=== PATIENT | male | born 1980 | race American Indian/Alaskan Native ===

== ENCOUNTER 2020-04-24 12:11 | Emergency (ER) | payer SELFPAY ==
--- NOTE | 2020-04-24 12:30 | Event Note ---
ED Screening Note Date of service: 04/24/20 Time: 12:30 ED Screening Note: Patient complains of bilateral pain and tingling in his legs States he believes he has diabetes History of pancreatitis This initial assessment/diagnostic orders/clinical plan/treatment(s) is/are subject to change based on patients health status, clinical progression and re- assessment by fellow clinical providers in the ED. Further treatment and workup at subsequent clinical providers discretion. Patient/guardian urged not to elope from the ED as their condition may be serious if not clinically assessed and managed. Initial orders include: Lab
[2020-04-24 13:42] LABS: Basophils # (Auto) 0.1 K/mm3 (0.0-0.1); Basophils % (Auto) 1.2 % (0.0-1.8); Eosinophils # (Auto) 0.1 K/mm3 (0.0-0.4); Hematocrit 36.6 % (35.5-45.6); Hemoglobin 12.6 gm/dl (11.8-15.2); Lymphocytes # (Auto) 1.6 K/mm3 (1.2-5.4); Lymphocytes % (Auto) 25.6 % (13.4-35.0); Mean Corpuscular HGB Conc 34 % (32-34); Mean Corpuscular Volume 99 fl (84-94); Monocytes # (Auto) 0.6 K/mm3 (0.0-0.8); Monocytes % (Auto) 9.3 % (0.0-7.3); Platelet Count 236 K/mm3 (140-440); Red Blood Count 3.69 M/mm3 (3.65-5.03); Red Cell Distribution Width 17.2 % (13.2-15.2)
[2020-04-24 14:04] LABS: Alanine Aminotransferase 48 units/L (7-56); Albumin 3.6 g/dL (3.9-5); Blood Urea Nitrogen 8 mg/dL (9-20); Calcium 7.8 mg/dL (8.4-10.2); Hemolysis Index 11
[2020-04-24 14:05] LABS: BUN/Creatinine Ratio 16
--- NOTE | 2020-04-24 17:42 | Emergency Department Report ---
ED General Adult HPI - General Chief complaint: Weakness Stated complaint: ZEESHAN LEG PAIN/NUMB Time Seen by Provider: 04/24/20 12:29 Source: patient Mode of arrival: Ambulatory Limitations: No Limitations - History of Present Illness Initial comments: 40-year-old -[place] male with a past medical history of alcoholism which is still current having had his last drink just this morning states that he has been drinking excessively over the past few days and is beginning to develop some epigastric pain associated with nausea suggestive of his previous pancreatitis attack which she thinks is the case right now. Ports no hemoptysis no hematemesis no hematochezia. Reports no fever, chills, sweats no chest pain no palpitations. No diarrhea no known foreign travel no known contacts with the coronavirus. States that he feels fatigued. He also has a concern for the this to to 3-month history of numbness and tingling to his lower extremities which is began to become more painful and having some vague cramps which he primarily wants pain medication to manage at this time. He states that the he has relocated him from from [place] but has not yet been seen and evaluated by primary care for this issue he has no known history of any diabetes or any demyelinating neuropathic issues to his knowledge. Reports no lower extremity swelling no color change no rash Radiation: non-radiation Consistency: constant Improves with: none Worsens with: none Associated Symptoms: nausea/vomiting. denies: chest pain, cough, malaise, shortness of breath, syncope - Related Data Previous Rx's Medication Instructions Recorded Last Taken Type Ketorolac [Toradol] 10 mg PO Q6H PRN #10 tablet 04/24/20 Unknown Rx Ondansetron [Zofran ODT TAB] 8 mg PO Q12HR #14 tab.rapdis 04/24/20 Unknown Rx Allergies Allergy/AdvReac Type Severity Reaction Status Date / Time No Known Allergies Allergy Unverified 04/24/20 12:30 ED Review of Systems ROS: Stated complaint: ZEESHAN LEG PAIN/NUMB Other details as noted in HPI Comment: All other systems reviewed and negative ED Past Medical Hx - Social History Smoking Status: Unknown if ever smoked Substance Use Type: None - Medications Home Medications: Home Medications Medication Instructions Recorded Confirmed Last Taken Type Ketorolac [Toradol] 10 mg PO Q6H PRN #10 tablet 04/24/20 Unknown Rx Ondansetron [Zofran ODT TAB] 8 mg PO Q12HR #14 tab.rapdis 04/24/20 Unknown Rx ED Physical Exam - General Limitations: No Limitations General appearance: alert, in no apparent distress - Head Head exam: Present: atraumatic, normocephalic - Eye Eye exam: Present: normal appearance, PERRL, EOMI Pupils: Present: normal accommodation - ENT ENT exam: Present: normal exam, normal orophraynx, mucous membranes moist, TM's normal bilaterally - Neck Neck exam: Present: normal inspection, full ROM - Respiratory Respiratory exam: Present: normal lung sounds bilaterally. Absent: respiratory distress, wheezes, rales, chest wall tenderness, accessory muscle use, decreased breath sounds - Cardiovascular Cardiovascular Exam: Present: regular rate, normal rhythm. Absent: systolic murmur, diastolic murmur, rubs, gallop - GI/Abdominal GI/Abdominal exam: Present: soft, normal bowel sounds - Rectal Rectal exam: Present: deferred - Extremities Exam Extremities exam: Present: normal inspection, normal capillary refill, other (Pulses are 2+. Sensation is intact no swelling no Homans' sign no cords no popliteal mass) - Back Exam Back exam: Present: normal inspection. Absent: CVA tenderness (R), CVA tenderness (L) - Neurological Exam Neurological exam: Present: alert, oriented X3, CN II-XII intact, normal gait, reflexes normal. Absent: motor sensory deficit - Psychiatric Psychiatric exam: Present: normal affect, normal mood - Skin Skin exam: Present: warm, dry, intact, normal color. Absent: rash ED Course Vital Signs 04/24/20 12:30 Temperature 97.7 F Pulse Rate 104 H Respiratory 16 Rate Blood Pressure 165/111 [Right] O2 Sat by Pulse 95 Oximetry - Reevaluation(s) Reevaluation #1: 04/24/20 18:55 Patient is awake alert and oriented he is ambulatory no acute distress - Consultations Consultation #1: 04/24/20 18:55 Case discussed with my attending ED Medical Decision Making - Lab Data Result diagrams: 04/24/20 12:56 04/24/20 12:56 Lab Results 04/24/20 04/24/20 04/24/20 Range/Units 12:56 12:56 12:56 WBC 6.3 (4.5-11.0) K/mm3 RBC 3.69 (3.65-5.03) M/mm3 Hgb 12.6 (11.8-15.2) gm/dl Hct 36.6 (35.5-45.6) % MCV 99 H (84-94) fl MCH 34 H (28-32) pg MCHC 34 (32-34) % RDW 17.2 H (13.2-15.2) % Plt Count 236 (140-440) K/mm3 Lymph % (Auto) 25.6 (13.4-35.0) % [place]ferro % (Auto) 9.3 H (0.0-7.3) % Eos % (Auto) 1.0 (0.0-4.3) % Baso % (Auto) 1.2 (0.0-1.8) % Lymph # (Auto) 1.6 (1.2-5.4) K/mm3 [place]ferro # (Auto) 0.6 (0.0-0.8) K/mm3 Eos # (Auto) 0.1 (0.0-0.4) K/mm3 Baso # (Auto) 0.1 (0.0-0.1) K/mm3 Seg Neutrophils % 62.9 (40.0-70.0) % Seg Neutrophils # 4.0 (1.8-7.7) K/mm3 Sodium 146 H (137-145) mmol/L Potassium 2.7 L* (3.6-5.0) mmol/L Chloride 99.3 (98-107) mmol/L Carbon Dioxide 29 (22-30) mmol/L Anion Gap 20 mmol/L BUN 8 L (9-20) mg/dL Creatinine 0.5 L (0.8-1.3) mg/dL Estimated GFR > 60 ml/min BUN/Creatinine Ratio 16 % Glucose 105 H (75-100) mg/dL Calcium 7.8 L (8.4-10.2) mg/dL Total Bilirubin 0.70 (0.1-1.2) mg/dL AST 233 H (5-40) units/L ALT 48 (7-56) units/L Alkaline Phosphatase 235 H (35-129) units/L Total Protein 7.4 (6.3-8.2) g/dL Albumin 3.6 L (3.9-5) g/dL Albumin/Globulin Ratio 0.9 % Lipase 76 H (13-60) units/L - Medical Decision Making 40-year-old -[place] male alcoholic who continues to suffer from alcoholism having his last drink earlier today presents emerged department with suspicion of a pancreatitis evolution. Also has been having some progressively worsening numbness and tingling to his lower extremities there is beginning to become more pronounced over the last year. Reports no diarrhea or vomiting.. I discussed with him in great detail and counseled him on the need for alcohol cessation and appropriate nutrition. Although his primary focus was receiving pain medication today he did express an understanding Plan regards to his hypokalemia most likely secondary to his chronic alcoholism and no evidence of any ketoacidosis today with a normal anion gap but is more likely due to hypomagnesia of a chronic etiology advised him on taking multivitamins daily and increasing his magnesium intake as well. 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 Critical care attestation.: If time is entered above; I have spent that time in minutes in the direct care of this critically ill patient, excluding procedure time. ED Disposition Clinical Impression: Abdominal pain, Hypokalemia, Alcoholic peripheral neuropathy Disposition: DC-01 TO HOME OR SELFCARE Is pt being admited?: No Does the pt Need Aspirin: No Condition: Stable Instructions: Potassium Content of Foods, Peripheral Neuropathy, Hypokalemia, Alcohol Use Disorder, Alcohol Abuse and Nutrition, Binge-Drinking Information, Adult, Alcohol Withdrawal Syndrome, Alcohol Abuse and Dependence Information, Adult Prescriptions: Ketorolac [Toradol] 10 mg PO Q6H PRN #10 tablet PRN Reason: Pain Ondansetron [Zofran ODT TAB] 8 mg PO Q12HR #14 tab.rapdis Referrals: PRIMARY CARE, [Primary Care Provider] - 3-5 Days CHANTAL REYNA MD [Staff Physician] - 3-5 Days
[2020-04-24] MEDS ORDERED: ACETAMINOPHEN 325 MG TAB ONE (19:35)
[2020-04-24] MEDS ORDERED: IBUPROFEN 600 MG TAB PO ONE ×2 (19:35→19:37)
[2020-04-24] MEDS ORDERED: ACETAMINOPHEN 325 MG TAB PO ONE (19:37)
[2020-04-24 20:41] VITALS: BP 161/76
== END 2020-04-24 19:40 | disposition home or self-care (01) ==
LOC: ED 12:11
DX: E87.6 Hypokalemia (principal); G62.1 Alcoholic polyneuropathy
CPT/HCPCS: 36415; 80053; 83690; 85025

== ENCOUNTER 2020-05-03 15:01 | Inpatient (IN) | payer OTHER ==
[2020-05-03] MEDS ORDERED: ASPIRIN 325 MG TAB PO ONE (15:21)
[2020-05-03 15:44] LABS: Hematocrit 21.3 % (35.5-45.6); Hemoglobin 7.3 gm/dl (11.8-15.2); Mean Corpuscular HGB Conc 34 % (32-34); Mean Corpuscular Volume 99 fl (84-94); Platelet Count 110 K/mm3 (140-440); Red Blood Count 2.15 M/mm3 (3.65-5.03); Red Cell Distribution Width 16.2 % (13.2-15.2)
[2020-05-03 15:59] LABS: Blood Urea Nitrogen 9 mg/dL (9-20); Calcium 7.8 mg/dL (8.4-10.2); Hemolysis Index 0
--- NOTE | 2020-05-03 16:12 | XRay Report ---
CHEST 1 VIEW INDICATION / CLINICAL INFORMATION: Chest Pain. COMPARISON: None available. FINDINGS: SUPPORT DEVICES: None. HEART / MEDIASTINUM: No significant abnormality. LUNGS / PLEURA: No significant pulmonary or pleural abnormality. No pneumothorax. ADDITIONAL FINDINGS: No significant additional findings. IMPRESSION: 1. No acute findings. Signer Name: Weston Jung MD Signed: 05/03/2020 4:08 PM Workstation Name: [id number]
[2020-05-03 16:14] LABS: BUN/Creatinine Ratio 13
[2020-05-03 16:40] LABS: Basophils % (Manual) 0 % (0.0-1.8); Eosinophils % (Manual) 0 % (0.0-4.3); RBC Morphology Normal; Total Cells Counted 100
[2020-05-03] MEDS ORDERED: HYDROmorphone 1 MG/1 ML INJ IV ONE (20:46)
[2020-05-03] MEDS ORDERED: LORazepam 2 MG/ML VIAL IV ONE (20:46)
[2020-05-03] MEDS ORDERED: LORazepam 2 MG/ML VIAL IV PRN ×2 (20:48)
[2020-05-03] MEDS ORDERED: MAGNESIUM SULFATE 2 GM/50 ML BAG IV ONE (20:48)
[2020-05-03] MEDS ORDERED: SODIUM CHLORIDE 0.9% 1000 ML 1,000 ML IV ONE (20:49)
--- NOTE | 2020-05-03 20:50 | Emergency Department Report ---
ED Chest Pain HPI - General Chief Complaint: Dyspnea/Respdistress Stated Complaint: DIFFICULTY BREATHING PUI?: No Time Seen by Provider: 05/03/20 20:23 Source: EMS Mode of arrival: Wheelchair Limitations: No Limitations - History of Present Illness Initial Comments: Patient is a 40-year-old male who presents for multiple complaints. Patient's complaints shortness of breath, chest pain, epigastric pain, generalized abdominal pain. Patient states he smokes a half a pack per day. Patient states he drinks alcohol regularly and his last drink was last night. Patient denies nausea and vomiting. Patient states all of his pain is a 10 out of 10. Patient states his pain is better with rest. Patient states his pain is worse with exertion and movement and palpation. Patient states his abdominal area feels bloated. Patient states he has a history of pancreatitis. Patient denies recent travel. Patient denies recent international travel. Patient denies exposure to the novel coronavirus. Patient denies sick contacts. Patient denies fever and chills. Patient denies cough. Patient denies diarrhea. Patient denies coming in contact with anybody with symptoms of the novel coronavirus. MD Complaint: chest pain -: Sudden Onset: during rest Pain Location: substernal, left chest, right chest, epigastric Pain Radiation: none Severity: severe Severity scale (0 -10): 10 Quality: sharp Consistency: constant Improves With: rest Worsens With: exertion, palpation, movement re: dyspnea. denies: nausea, vomting, diaphoresis, sense of impending doom Other Symptoms: burping. denies: cough, fever, syncope, rash, acid taste in mouth, leg swelling, palpitations Treatments Prior to Arrival: none Aspirin use within the Past 7 Days: (0) No - Related Data On Oral Contraceptives: No Previous Rx's Medication Instructions Recorded Last Taken Type Ketorolac [Toradol] 10 mg PO Q6H PRN #10 tablet 04/24/20 Unknown Rx Ondansetron [Zofran ODT TAB] 8 mg PO Q12HR #14 tab.rapdis 04/24/20 Unknown Rx Allergies Allergy/AdvReac Type Severity Reaction Status Date / Time No Known Allergies Allergy Unverified 04/24/20 12:30 Heart Score - HEART Score History: Slightly suspicious EKG: Normal Age: < 45 Risk factors: 1-2 risk factors Troponin: < normal limit HEART Score: 1 ED Review of Systems ROS: Stated complaint: DIFFICULTY BREATHING Other details as noted in HPI Constitutional: denies: chills, fever Eyes: denies: eye pain, eye discharge, vision change ENT: denies: ear pain, throat pain Respiratory: shortness of breath. denies: cough, wheezing Cardiovascular: chest pain. denies: palpitations Endocrine: no symptoms reported Gastrointestinal: abdominal pain. denies: nausea, diarrhea Genitourinary: denies: urgency, dysuria Musculoskeletal: denies: back pain, joint swelling, arthralgia Skin: denies: rash, lesions Neurological: denies: headache, weakness, paresthesias Psychiatric: denies: anxiety, depression Hematological/Lymphatic: denies: easy bleeding, easy bruising ED Past Medical Hx - Past Medical History Previous Medical History?: Yes Hx Psychiatric Treatment: Yes (alcohol abuse) - Surgical History Past Surgical History?: No - Family History Family history: no significant - Social History Smoking Status: Current Every Day Smoker Substance Use Type: Alcohol - Medications Home Medications: Home Medications Medication Instructions Recorded Confirmed Last Taken Type Ketorolac [Toradol] 10 mg PO Q6H PRN #10 tablet 04/24/20 Unknown Rx Ondansetron [Zofran ODT TAB] 8 mg PO Q12HR #14 tab.rapdis 04/24/20 Unknown Rx ED Physical Exam - General Limitations: No Limitations General appearance: alert, in no apparent distress - Head Head exam: Present: atraumatic, normocephalic - Eye Eye exam: Present: normal appearance - ENT ENT exam: Present: mucous membranes moist - Neck Neck exam: Present: normal inspection - Respiratory Respiratory exam: Present: normal lung sounds bilaterally, chest wall tenderness. Absent: respiratory distress - Cardiovascular Cardiovascular Exam: Present: regular rate, normal rhythm. Absent: systolic murmur, diastolic murmur, rubs, gallop - GI/Abdominal GI/Abdominal exam: Present: soft, distended, tenderness, normal bowel sounds. Absent: guarding, rebound - Rectal Rectal exam: Present: normal inspection, normal rectal tone, heme (+) stool, black stool - Extremities Exam Extremities exam: Present: normal inspection - Back Exam Back exam: Present: normal inspection - Neurological Exam Neurological exam: Present: alert, oriented X3 - Psychiatric Psychiatric exam: Present: normal affect, normal mood - Skin Skin exam: Present: warm, dry, intact, normal color. Absent: rash ED Course Vital Signs 05/03/20 15:16 Temperature 98.3 F Pulse Rate 90 Respiratory 18 Rate Blood Pressure 101/62 O2 Sat by Pulse 96 Oximetry - Reevaluation(s) Reevaluation #1: Patient states his pain is better. Patient denies any tremors. 05/03/20 22:03 Reevaluation #2: Patient states he is feeling better. Patient is receiving fluids and potassium replacement. Patient had a rectal exam done with nurse Zaman in the room. I discussed all results with patient. I discussed plan of care with patient. Patient agrees with plan of care and admission. Patient to be admitted to the hospitalist service. 05/03/20 23:53 - Consultations Consultation #1: Hospitalist consulted for admission. Hospitalist to admit patient. 05/03/20 23:54 JUDAH score - Judah Score Age > 65: (0) No Aspirin use within the Past 7 Days: (0) No 3 or more CAD Risk Factors: (0) No 2 or more Angina events in past 24 hrs: (0) No Known CAD with more than 50% Stenosis: (0) No Elevated Cardiac Markers: (0) No ST Deviation Greater than 0.5mm: (0) No JUDAH Score: 0 ED Medical Decision Making - Lab Data Result diagrams: 05/03/20 15:28 05/03/20 15:28 - EKG Data -: EKG Interpreted by Me EKG shows normal: sinus rhythm, axis, intervals, QRS complexes, ST-T waves Rate: tachycardia - Radiology Data Radiology results: report reviewed, image reviewed interpreted by me: Chest x-ray: No pneumonia, no pneumothorax, no foreign body, no osseous findings, no acute findings CHEST 1 VIEW INDICATION / CLINICAL INFORMATION: Chest Pain. COMPARISON: None available. FINDINGS: SUPPORT DEVICES: None. HEART / MEDIASTINUM: No significant abnormality. LUNGS / PLEURA: No significant pulmonary or pleural abnormality. No pneumothorax. ADDITIONAL FINDINGS: No significant additional findings. IMPRESSION: 1. No acute findings. CT ABDOMEN AND PELVIS WITH IV CONTRAST INDICATION: Patient complains of "Generalized" abdominal pain.. COMPARISON: None available. TECHNIQUE: All CT scans at this facility use dose modulation, automated exposure control, iterative reconstruction or weight based dosing, when appropriate, to reduce radiation dose to as low as reasonably achievable. FINDINGS: Lung Bases: No significant abnormality. Skeletal System: No acute abnormality. ABDOMEN: Liver: Hepatomegaly and diffuse advanced steatosis. Gallbladder: No significant abnormality. Bile Ducts: No significant abnormality. Pancreas: There is questionable subtle peripancreatic fluid. No pancreatic duct dilatation or circumscribed peripancreatic collections. Spleen: Within the medial superior spleen, there is a 2.8 cm ill-defined hypodense lesion which appears isodense to adjacent splenic parenchyma on delayed phase imaging. This is most likely a vascular lesion such as incidental hemangioma. The spleen is otherwise unremarkable. Adrenals: No significant abnormality. Right Kidney: No significant abnormality. Left Kidney: No significant abnormality. Upper GI tract: No significant abnormality. Lymph Nodes: No significant adenopathy. Aorta: Mild atherosclerotic calcification. Additional Findings: No significant abnormality. PELVIS: Colon: No acute abnormality. Urinary Bladder and Distal Ureters: No significant abnormality. Appendix: Absent. Lymph Nodes: No significant adenopathy. Additional Findings: None. IMPRESSION: 1. There is subtle peripancreatic stranding adjacent to the body and tail which could be seen in the setting of very mild pancreatitis, correlate with laboratory values. 2. 2.8 cm splenic lesion, as above, has CT features suggestive of vascular lesion such as hemangioma. 3. Additional, incidental findings as above. - Medical Decision Making Patient is a 40-year-old male who presents emergency room with complaints of chest pain, shortness of breath, abdominal pain. Patient has a long alcohol use history. Patient is high risk for pancreatitis. Patient has CT scan done. Patient's CT shows acute pancreatitis. After his evaluation, the patient was given Ativan and Dilaudid. Patient was given Dilaudid for abdominal pain which patient responded well to therapy. Patient was given Ativan to prevent tremors and withdrawal. Patient denies any tremulous activity. Patient's heart rate responded well. Patient given a banana bag and fluids. Patient had labs done which were consistent with hypokalemia, hypomagnesemia, elevated lipase and anemia. Patient had a rectal exam which was positive for occult blood. GI was consulted. Patient given Protonix IV. Patient given potassium and magnesium replacement. Patient admitted to the hospital service for further evaluation and treatment. - Differential Diagnosis Abdominal pain, chest pain, shortness of breath, gastritis, pancreatitis, Critical Care Time: Yes Critical care time in (mins) excluding proc time.: 35 Critical care attestation.: If time is entered above; I have spent that time in minutes in the direct care of this critically ill patient, excluding procedure time. Critical Care Time: 35 minutes ED Disposition Clinical Impression: Hypokalemia, SOB (shortness of breath), Hypomagnesemia Abdominal pain Qualifiers: Abdominal location: generalized Qualified Code(s): R10.84 - Generalized abdominal pain Pancreatitis Qualifiers: Chronicity: acute Pancreatitis type: alcohol induced Acute pancreatitis complication: unspecified Qualified Code(s): K85.20 - Alcohol induced acute pancreatitis without necrosis or infection Anemia Qualifiers: Anemia type: unspecified type Qualified Code(s): D64.9 - Anemia, unspecified Chest pain Qualifiers: Chest pain type: unspecified Qualified Code(s): R07.9 - Chest pain, unspecified GI bleed Qualifiers: GI bleed type/associated pathology: melena Qualified Code(s): K92.1 - Melena Gastritis Qualifiers: Gastritis type: alcoholic Chronicity: acute Gastritis bleeding: with bleeding Qualified Code(s): K29.21 - Alcoholic gastritis with bleeding Disposition: DC-09 OP ADMIT IP TO THIS HOSP Is pt being admited?: Yes Does the pt Need Aspirin: No Condition: Critical Instructions: Chest Pain (ED) Time of Disposition: 23:38
[2020-05-03] MEDS ORDERED: THIAMINE 100 MG, FOLIC ACID 1 MG, MULTIPLE VITAMIN INJ, ADULT 10 ML in SODIUM CHLORIDE ... IV ONE (21:00)
[2020-05-03] MEDS: POTASSIUM CHLORIDE 10 MEQ 10 MEQ/100 ML BAG IV SCH ×2 (21:13→23:50)
[2020-05-03] MEDS ORDERED: ASPIRIN 325 MG TAB ONE (21:21)
[2020-05-03 21:30] LABS: Albumin 3.1 g/dL (3.9-5); Bilirubin,Direct 0.7 mg/dL (0-0.2)
--- NOTE | 2020-05-03 23:35 | Cat Scan Report ---
CT ABDOMEN AND PELVIS WITH IV CONTRAST INDICATION: Patient complains of "Generalized" abdominal pain.. COMPARISON: None available. TECHNIQUE: All CT scans at this facility use dose modulation, automated exposure control, iterative reconstructi on or weight based dosing, when appropriate, to reduce radiation dose to as low as reasonably achieva ble. FINDINGS: Lung Bases: No significant abnormality. Skeletal System: No acute abnormality. ABDOMEN: Liver: Hepatomegaly and diffuse advanced steatosis. Gallbladder: No significant abnormality. Bile Ducts: No significant abnormality. Pancreas: There is questionable subtle peripancreatic fluid. No pancreatic duct dilatation or circums cribed peripancreatic collections. Spleen: Within the medial superior spleen, there is a 2.8 cm ill-defined hypodense lesion which appea rs isodense to adjacent splenic parenchyma on delayed phase imaging. This is most likely a vascular l esion such as incidental hemangioma. The spleen is otherwise unremarkable. Adrenals: No significant abnormality. Right Kidney: No significant abnormality. Left Kidney: No significant abnormality. Upper GI tract: No significant abnormality. Lymph Nodes: No significant adenopathy. Aorta: Mild atherosclerotic calcification. Additional Findings: No significant abnormality. PELVIS: Colon: No acute abnormality. Urinary Bladder and Distal Ureters: No significant abnormality. Appendix: Absent. Lymph Nodes: No significant adenopathy. Additional Findings: None. IMPRESSION: 1. There is subtle peripancreatic stranding adjacent to the body and tail which could be seen in the setting of very mild pancreatitis, correlate with laboratory values. 2. 2.8 cm splenic lesion, as above, has CT features suggestive of vascular lesion such as hemangioma . 3. Additional, incidental findings as above. Signer Name: Valeriy Ordaz MD Signed: 05/03/2020 11:31 PM Workstation Name: [id number]
[2020-05-03] MEDS ORDERED: PANTOPRAZOLE 40 MG INJ IV ONE (23:50)
[2020-05-04] MEDS ORDERED: ONDANSETRON 4 MG/2 ML INJ IV PRN (00:08)
[2020-05-04] MEDS ORDERED: MAGNESIUM HYDROXIDE (MOM) ORAL LIQD UDC PO PRN (00:08)
[2020-05-04] MEDS ORDERED: ACETAMINOPHEN 325 MG TAB PO PRN (00:08)
--- NOTE | 2020-05-04 00:17 | History and Physical Report ---
History of Present Illness Date of examination: 05/03/20 Date of admission: 05/03/20 23:38 Chief complaint: Abdominal Pain History of present illness: 40-year-old -[place] male with known history of alcohol abuse and pancreatitis presenting to the emergency room today complaining of abdominal pain, shortness of breath and chest discomfort. It was said to a status earlier today and abdominal pain is said to be more in the epigastric region and radiating towards the chest. Pain is said to be 10/10 in severity. Pain is worse on movement and improves while resting. Patient denies any fever or chills, no headache or dizziness, no sick contacts or recent travel, no contact with anyone with COVID-19, denies any diarrhea. He has had some nausea and vomiting and states his abdomen feels bloated. Patient drinks alcohol almost on a daily basis and last alcohol intake was last night. He also smokes about half a pack was cigarette on a daily basis. Work-up in the emergency room today reveals elevated lipase on the lab test, CT of the abdomen and pelvis reveals findings consistent with pancreatitis. Patient being admitted for acute pancreatitis. Past History Past Medical History: other (Pancreatitis) Past Surgical History: No surgical history Social history: smoking (Smokes about half a pack of cigarette daily), alcohol abuse (Drinks alcohol on a daily basis) Family history: no significant family history Medications and Allergies Allergies Allergy/AdvReac Type Severity Reaction Status Date / Time No Known Allergies Allergy Unverified 04/24/20 12:30 Home Medications Medication Instructions Recorded Confirmed Last Taken Type Ketorolac [Toradol] 10 mg PO Q6H PRN #10 tablet 04/24/20 Unknown Rx Ondansetron [Zofran ODT TAB] 8 mg PO Q12HR #14 tab.rapdis 04/24/20 Unknown Rx Active Meds: Active Medications Potassium Chloride (Kcl 10meq/100ml) 10 meq in 100 mls @ 100 mls/hr IV Q1H TWIN Stop: 05/04/20 00:59 Last Admin: 05/03/20 23:50 Dose: 100 mls/hr Documented by: Thiamine HCl 100 mg/ Folic Acid 1 mg/ Multivitamins/Minerals 10 ml/ Sodium Chloride 1,011.2 mls @ 250 mls/hr IV ONCE ONE Stop: 05/04/20 01:02 Last Admin: 05/03/20 22:00 Dose: 250 mls/hr Documented by: Lorazepam (Ativan) 2 mg IV Q1HR PRN PRN Reason: CIWA-Ar 8-15 Lorazepam (Ativan) 4 mg IV Q1HR PRN PRN Reason: CIWA-Ar 16-25 Lorazepam (Ativan) 4 mg IV Q15MIN PRN PRN Reason: CIWA-Ar >25 Review of Systems Constitutional: no fever, no chills Ears, nose, mouth and throat: no nasal congestion, no sore throat Cardiovascular: no chest pain, no palpitations Respiratory: no cough, no shortness of breath Gastrointestinal: abdominal pain, nausea, vomiting, no diarrhea, no hematemesis, no coffee ground emesis, no melena Genitourinary Male: no dysuria, no flank pain, no nocturia Musculoskeletal: no neck pain, no low back pain Integumentary: no rash, no pruritis Neurological: no headaches, no convulsions, no confusion Psychiatric: no anxiety, no depression Exam - Constitutional Vitals: Temp Pulse Resp BP Pulse Ox 98.3 F 90 18 101/62 96 05/03/20 15:16 05/03/20 15:16 05/03/20 15:16 05/03/20 15:16 05/03/20 15:16 General appearance: Present: no acute distress, well-nourished, other (Dry oral mucosa, appears lethargic) - EENT Eyes: Present: PERRL, EOM intact. Absent: scleral icterus ENT: hearing intact, clear oral mucosa, dentition normal - Neck Neck: Present: supple, normal ROM - Respiratory Respiratory effort: normal Respiratory: bilateral: CTA - Cardiovascular Rhythm: regular Heart Sounds: Present: S1 & S2. Absent: gallop, systolic murmur, diastolic murmur, rub - Extremities Extremities: no ischemia, pulses intact, pulses symmetrical, No edema, Full ROM Peripheral Pulses: within normal limits - Abdominal General gastrointestinal: Present: soft, tender, non-distended, normal bowel sounds. Absent: mass Localized gastrointestinal: tender: epigastric periumbilical, guarding: epigastric periumbilical - Integumentary Integumentary: Present: clear, warm, dry - Musculoskeletal Musculoskeletal: strength equal bilaterally - Psychiatric Psychiatric: appropriate mood/affect, intact judgment & insight, memory intact, cooperative - Neurologic Neurologic: CNII-XII intact, no focal deficits, moves all extremities HEART Score - HEART Score EKG: Normal Age: < 45 Risk factors: 1-2 risk factors Troponin: Troponin T < 0.010 ng/mL (0.00-0.029) 05/03/20 20:44 Troponin: < normal limit Results - Labs CBC & Chem 7: 05/03/20 15:28 05/03/20 15:28 Labs: Abnormal lab results 05/03/20 05/03/20 05/03/20 Range/Units 15:28 15:28 15:28 WBC 11.2 H (4.5-11.0) K/mm3 RBC 2.15 L (3.65-5.03) M/mm3 Hgb 7.3 L (11.8-15.2) gm/dl Hct 21.3 L (35.5-45.6) % MCV 99 H (84-94) fl MCH 34 H (28-32) pg RDW 16.2 H (13.2-15.2) % Plt Count 110 L (140-440) K/mm3 Seg Neuts % (Manual) 78.0 H (40.0-70.0) % Seg Neutrophils # Man 8.7 H (1.8-7.7) K/mm3 Sodium 131 L (137-145) mmol/L Potassium 2.0 L* (3.6-5.0) mmol/L Chloride 85.8 L (98-107) mmol/L Creatinine 0.7 L (0.8-1.3) mg/dL Glucose 112 H (75-100) mg/dL Calcium 7.8 L (8.4-10.2) mg/dL Magnesium 1.40 L (1.7-2.3) mg/dL Direct Bilirubin (0-0.2) mg/dL AST (5-40) units/L Alkaline Phosphatase (35-129) units/L Total Protein (6.3-8.2) g/dL Albumin (3.9-5) g/dL Lipase (13-60) units/L 05/03/20 Range/Units 20:51 WBC (4.5-11.0) K/mm3 RBC (3.65-5.03) M/mm3 Hgb (11.8-15.2) gm/dl Hct (35.5-45.6) % MCV (84-94) fl MCH (28-32) pg RDW (13.2-15.2) % Plt Count (140-440) K/mm3 Seg Neuts % (Manual) (40.0-70.0) % Seg Neutrophils # Man (1.8-7.7) K/mm3 Sodium (137-145) mmol/L Potassium (3.6-5.0) mmol/L Chloride (98-107) mmol/L Creatinine (0.8-1.3) mg/dL Glucose (75-100) mg/dL Calcium (8.4-10.2) mg/dL Magnesium (1.7-2.3) mg/dL Direct Bilirubin 0.7 H (0-0.2) mg/dL AST 191 H (5-40) units/L Alkaline Phosphatase 257 H (35-129) units/L Total Protein 5.9 L (6.3-8.2) g/dL Albumin 3.1 L (3.9-5) g/dL Lipase 225 H (13-60) units/L Assessment and Plan - Patient Problems (1) Pancreatitis Current Visit: Yes Status: Acute Qualifiers: Chronicity: acute Pancreatitis type: alcohol induced Acute pancreatitis complication: unspecified Qualified Code(s): K85.20 - Alcohol induced acute pancreatitis without necrosis or infection Plan to address problem: Patient made n.p.o. and placed on IV fluid and IV analgesic medication. (2) Abdominal pain Current Visit: Yes Status: Acute Qualifiers: Abdominal location: generalized Qualified Code(s): R10.84 - Generalized abdominal pain Plan to address problem: Probably secondary to the pancreatitis. We will continue on analgesic medication. (3) Anemia Current Visit: Yes Status: Acute Qualifiers: Anemia type: unspecified type Qualified Code(s): D64.9 - Anemia, unspec ified Plan to address problem: Possibly chronic. Will monitor CBC. Patient is Hemoccult positive and will place a consult to gastroenterology for evaluation. (4) Hypokalemia Current Visit: Yes Status: Acute Plan to address problem: Potassium will be repleted and will monitor chemistry. (5) Hypomagnesemia Current Visit: Yes Status: Acute Plan to address problem: Magnesium will be repleted and will monitor chemistry. (6) DVT prophylaxis Current Visit: Yes Status: Acute Plan to address problem: Patient placed on sequential compression device. (7) Full code status Current Visit: Yes Status: Acute
[2020-05-04] MEDS: POTASSIUM CHLORIDE 10 MEQ 10 MEQ/100 ML BAG IV SCH ×6 (00:59→21:25)
[2020-05-04] MEDS ORDERED: PANTOPRAZOLE 40 MG INJ IV ONE (01:00)
[2020-05-04] MEDS: HYDROmorphone 1 MG/1 ML INJ IV PRN ×3 (02:42→17:24)
[2020-05-04] MEDS ORDERED: POTASSIUM CHLORIDE 10 MEQ 10 MEQ/100 ML BAG IV SCH (03:15)
[2020-05-04] MEDS: SODIUM CHLORIDE 0.9% 1000 ML 1,000 ML IV SCH ×2 (03:38→09:56)
--- NOTE | 2020-05-04 08:00 | Progress Note ---
Assessment and Plan Assessment and plan: (1) Pancreatitis Current Visit: Yes Status: Acute Qualifiers: Chronicity: acute Pancreatitis type: alcohol induced Acute pancreatitis complication: unspecified Qualified Code(s): K85.20 - Alcohol induced acute pancreatitis without necrosis or infection Plan to address problem: Patient made n.p.o. and placed on IV fluid and IV analgesic medication. (2) Abdominal pain Current Visit: Yes Status: Acute Qualifiers: Abdominal location: generalized Qualified Code(s): R10.84 - Generalized abdominal pain Plan to address problem: Probably secondary to the pancreatitis. We will continue on analgesic medication. (3) Anemia Current Visit: Yes Status: Acute Qualifiers: Anemia type: unspecified type Qualified Code(s): D64.9 - Anemia, unspecified Plan to address problem: Possibly chronic. Will monitor CBC. Patient is Hemoccult positive and will place a consult to gastroenterology for evaluation. 05/04/20 -Patient's hemoglobin dropped down to 6.2 and I ordered 2 units of packed RBC for transfusion (4) Hypokalemia Current Visit: Yes Status: Acute Plan to address problem: Potassium will be repleted and will monitor chemistry. (5) Hypomagnesemia Current Visit: Yes Status: Acute Plan to address problem: Magnesium will be repleted and will monitor chemistry. (6) DVT prophylaxis Current Visit: Yes Status: Acute Plan to address problem: Patient placed on sequential compression device. (7) Full code status Current Visit: Yes Status: Acute History Interval history: Patient was seen and evaluated this morning Patient is complaining epigastric 8 out of 10 intensity Hospitalist Physical - Physical exam Narrative exam: Not in cardiopulmonary distress. The patient appeared well nourished and normally developed. Vital signs as documented. Head exam is unremarkable. No scleral icterus . Neck is without jugular venous distension, thyromegaly, or carotid bruits. Lungs are clear to auscultation. Cardiac exam reveals regular rate and Rhythm. Abdominal exam reveals epigastric tenderness. Extremities are nonedematous and both femoral and pedal pulses are normal. URGENT CARE NURSE PRACTITIONER: Alert and oriented 3. No focal weakness. - Constitutional Vitals: Temp Pulse Resp BP Pulse Ox 98.7 F 88 16 116/75 93 05/04/20 07:02 05/04/20 07:02 05/04/20 07:02 05/04/20 07:02 05/04/20 07:02 General appearance: Present: no acute distress, well-nourished, other (Dry oral mucosa, appears lethargic) HEART Score - HEART Score EKG: Normal Age: < 45 Risk factors: 1-2 risk factors Troponin: Troponin T < 0.010 ng/mL (0.00-0.029) 05/03/20 20:44 Troponin: < normal limit Results - Labs CBC & Chem 7: 05/04/20 09:20 05/04/20 09:20 Labs: Laboratory Last Values WBC 11.2 K/mm3 (4.5-11.0) H 05/03/20 15:28 RBC 2.15 M/mm3 (3.65-5.03) L 05/03/20 15:28 Hgb 7.3 gm/dl (11.8-15.2) L 05/03/20 15:28 Hct 21.3 % (35.5-45.6) L 05/03/20 15:28 MCV 99 fl (84-94) H 05/03/20 15:28 MCH 34 pg (28-32) H 05/03/20 15:28 MCHC 34 % (32-34) 05/03/20 15:28 RDW 16.2 % (13.2-15.2) H 05/03/20 15:28 Plt Count 110 K/mm3 (140-440) L 05/03/20 15:28 Add Manual Diff Complete 05/03/20 15:28 Total Counted 100 05/03/20 15:28 Seg Neuts % (Manual) 78.0 % (40.0-70.0) H 05/03/20 15:28 Band Neutrophils % 0 % 05/03/20 15:28 Lymphocytes % (Manual) 16.0 % (13.4-35.0) 05/03/20 15:28 Reactive Lymphs % (Man) 0 % 05/03/20 15:28 Monocytes % (Manual) 6.0 % (0.0-7.3) 05/03/20 15:28 Eosinophils % (Manual) 0 % (0.0-4.3) 05/03/20 15:28 Basophils % (Manual) 0 % (0.0-1.8) 05/03/20 15:28 Metamyelocytes % 0 % 05/03/20 15:28 Myelocytes % 0 % 05/03/20 15:28 Promyelocytes % 0 % 05/03/20 15:28 Blast Cells % 0 % 05/03/20 15:28 Nucleated RBC % Not Reportable 05/03/20 15:28 Seg Neutrophils # Man 8.7 K/mm3 (1.8-7.7) H 05/03/20 15:28 Band Neutrophils # 0.0 K/mm3 05/03/20 15:28 Lymphocytes # (Manual) 1.8 K/mm3 (1.2-5.4) 05/03/20 15:28 Abs React Lymphs (Man) 0.0 K/mm3 05/03/20 15:28 Monocytes # (Manual) 0.7 K/mm3 (0.0-0.8) 05/03/20 15:28 Eosinophils # (Manual) 0.0 K/mm3 (0.0-0.4) 05/03/20 15:28 Basophils # (Manual) 0.0 K/mm3 (0.0-0.1) 05/03/20 15:28 Metamyelocytes # 0.0 K/mm3 05/03/20 15:28 Myelocytes # 0.0 K/mm3 05/03/20 15:28 Promyelocytes # 0.0 K/mm3 05/03/20 15:28 Blast Cells # 0.0 K/mm3 05/03/20 15:28 WBC Morphology Not Reportable 05/03/20 15:28 Hypersegmented Neuts Not Reportable 05/03/20 15:28 Hyposegmented Neuts Not Reportable 05/03/20 15:28 Hypogranular Neuts Not Reportable 05/03/20 15:28 Smudge Cells Not Reportable 05/03/20 15:28 Toxic Granulation Not Reportable 05/03/20 15:28 Toxic Vacuolation Not Reportable 05/03/20 15:28 Dohle Bodies Not Reportable 05/03/20 15:28 Pelger-Huet Anomaly Not Reportable 05/03/20 15:28 Farrah Rods Not Reportable 05/03/20 15:28 Platelet Estimate Not Reportable 05/03/20 15:28 Clumped Platelets Not Reportable 05/03/20 15:28 Plt Clumps, EDTA Not Reportable 05/03/20 15:28 Large Platelets Not Reportable 05/03/20 15:28 Giant Platelets Not Reportable 05/03/20 15:28 Platelet Satelliting Not Reportable 05/03/20 15:28 Plt Morphology Comment Not Reportable 05/03/20 15:28 RBC Morphology Normal 05/03/20 15:28 Dimorphic RBCs Not Reportable 05/03/20 15:28 Polychromasia Not Reportable 05/03/20 15:28 Hypochromasia Not Reportable 05/03/20 15:28 Poikilocytosis Not Reportable 05/03/20 15:28 Anisocytosis Not Reportable 05/03/20 15:28 Microcytosis Not Reportable 05/03/20 15:28 Macrocytosis Not Reportable 05/03/20 15:28 Spherocytes Not Reportable 05/03/20 15:28 Pappenheimer Bodies Not Reportable 05/03/20 15:28 Sickle Cells Not Reportable 05/03/20 15:28 Target Cells Not Reportable 05/03/20 15:28 Tear Drop Cells Not Reportable 05/03/20 15:28 Ovalocytes Not Reportable 05/03/20 15:28 Helmet Cells Not Reportable 05/03/20 15:28 [place] Bodies Not Reportable 05/03/20 15:28 [place] Rings Not Reportable 05/03/20 15:28 [place] Cells Not Reportable 05/03/20 15:28 Bite Cells Not Reportable 05/03/20 15:28 Crenated Cell Not Reportable 05/03/20 15:28 Elliptocytes Not Reportable 05/03/20 15:28 Acanthocytes (Spur) Not Reportable 05/03/20 15:28 Rouleaux Not Reportable 05/03/20 15:28 Hemoglobin C Crystals Not Reportable 05/03/20 15:28 Schistocytes Not Reportable 05/03/20 15:28 Malaria parasites Not Reportable 05/03/20 15:28 [place] Bodies Not Reportable 05/03/20 15:28 Hem Pathologist Commnt No 05/03/20 15:28 Sodium 131 mmol/L (137-145) L 05/03/20 15:28 Potassium 2.0 mmol/L (3.6-5.0) L* 05/03/20 15:28 Chloride 85.8 mmol/L (98-107) L 05/03/20 15:28 Carbon Dioxide 26 mmol/L (22-30) 05/03/20 15:28 Anion Gap 21 mmol/L 05/03/20 15:28 BUN 9 mg/dL (9-20) 05/03/20 15:28 Creatinine 0.7 mg/dL (0.8-1.3) L 05/03/20 15:28 Estimated GFR > 60 ml/min 05/03/20 15:28 BUN/Creatinine Ratio 13 % 05/03/20 15:28 Glucose 112 mg/dL (75-100) H 05/03/20 15:28 Calcium 7.8 mg/dL (8.4-10.2) L 05/03/20 15:28 Magnesium 1.40 mg/dL (1.7-2.3) L 05/03/20 15:28 Total Bilirubin 1.00 mg/dL (0.1-1.2) 05/03/20 20:51 Direct Bilirubin 0.7 mg/dL (0-0.2) H 05/03/20 20:51 Indirect Bilirubin 0.3 mg/dL 05/03/20 20:51 AST 191 units/L (5-40) H 05/03/20 20:51 ALT 50 units/L (7-56) 05/03/20 20:51 Alkaline Phosphatase 257 units/L (35-129) H 05/03/20 20:51 Troponin T < 0.010 ng/mL (0.00-0.029) 05/03/20 20:44 Total Protein 5.9 g/dL (6.3-8.2) L 05/03/20 20:51 Albumin 3.1 g/dL (3.9-5) L 05/03/20 20:51 Albumin/Globulin Ratio 1.1 % 05/03/20 20:51 Lipase 293 units/L (13-60) H 05/04/20 05:18 Blood Type B POSITIVE 05/03/20 21:00 Antibody Screen Negative 05/03/20 21:00 Heard/IV: IV Catheter Type [Right Peripheral IV Antecubital] Active Medications - Current Medications Current Medications: Generic Name Dose Route Start Last Admin Trade Name Freq PRN Reason Stop Dose Admin Acetaminophen 650 mg 05/04/20 00:08 Tylenol PO Q4H PRN Pain MILD(1-3)/Fever >100.5/FREITAS Hydromorphone HCl 0.5 mg 05/04/20 00:08 05/04/20 02:42 Dilaudid IV 0.5 mg Q3H PRN Administration Pain , Severe (7-10) Sodium Chloride 1,000 mls @ 150 mls/hr 05/04/20 00:15 05/04/20 03:38 Nacl 0.9% 1000 Ml IV 150 mls/hr DIRECT TWIN Administration Lorazepam 2 mg 05/03/20 20:48 Ativan IV Q1HR PRN CIWA-Ar 8-15 Lorazepam 4 mg 05/03/20 20:48 Ativan IV Q1HR PRN CIWA-Ar 16-25 Lorazepam 4 mg 05/03/20 20:48 Ativan IV Q15MIN PRN CIWA-Ar >25 Magnesium Hydroxide 30 ml 05/04/20 00:08 Milk Of Magnesia PO Q4H PRN Constipation Ondansetron HCl 4 mg 05/04/20 00:08 Zofran IV Q8H PRN Nausea And Vomiting Sodium Chloride 10 ml 05/04/20 10:00 Sodium Chloride Flush Syringe 10 Ml IV BID TWIN Sodium Chloride 10 ml 05/04/20 00:08 Sodium Chloride Flush Syringe 10 Ml IV PRN PRN LINE FLUSH
--- NOTE | 2020-05-04 09:22 | Gastroenterology Consultation ---
History of Present Illness - Reason for Consult Consult date: 05/04/20 abdominal pain, anemia Requesting physician: ERICK HENRIQUEZ III - History of Present Illness The patient is a 40 yo aam who presents with generalized abd pain, loss of appetite, and bloating. Pt with h/o alcohol abuse, daily vodka use for years, prior history of pancreatitis, presented with 2-3 days of abd pain, loss of appetite, and bloating. Pt last consumed alcohol 2 nights ago. reports having lower extremity tingling/numbness for last couple weeks as well. Reports dark appearing stools for several days, last bm was yesterday. Past History Past Medical History: other (Pancreatitis) Past Surgical History: No surgical history Social history: smoking (Smokes about half a pack of cigarette daily), alcohol abuse (Drinks alcohol on a daily basis) Family history: no significant family history Medications and Allergies Allergies Allergy/AdvReac Type Severity Reaction Status Date / Time No Known Allergies Allergy Unverified 04/24/20 12:30 Home Medications Medication Instructions Recorded Confirmed Last Taken Type Ketorolac [Toradol] 10 mg PO Q6H PRN #10 tablet 04/24/20 Unknown Rx Ondansetron [Zofran ODT TAB] 8 mg PO Q12HR #14 tab.rapdis 04/24/20 Unknown Rx Active Meds: Active Medications Acetaminophen (Tylenol) 650 mg PO Q4H PRN PRN Reason: Pain MILD(1-3)/Fever >100.5/FREITAS Hydromorphone HCl (Dilaudid) 0.5 mg IV Q3H PRN PRN Reason: Pain , Severe (7-10) Last Admin: 05/04/20 02:42 Dose: 0.5 mg Documented by: Sodium Chloride (Nacl 0.9% 1000 Ml) 1,000 mls @ 150 mls/hr IV DIRECT TWIN Last Admin: 05/04/20 03:38 Dose: 150 mls/hr Documented by: Potassium Chloride (Kcl 10meq/100ml) 10 meq in 100 mls @ 100 mls/hr IV Q1H TWIN Stop: 05/04/20 12:59 Lorazepam (Ativan) 2 mg IV Q1HR PRN PRN Reason: CIWA-Ar 8-15 Lorazepam (Ativan) 4 mg IV Q1HR PRN PRN Reason: CIWA-Ar 16-25 Lorazepam (Ativan) 4 mg IV Q15MIN PRN PRN Reason: CIWA-Ar >25 Magnesium Hydroxide (Milk Of Magnesia) 30 ml PO Q4H PRN PRN Reason: Constipation Ondansetron HCl (Zofran) 4 mg IV Q8H PRN PRN Reason: Nausea And Vomiting Sodium Chloride (Sodium Chloride Flush Syringe 10 Ml) 10 ml IV BID TWIN Sodium Chloride (Sodium Chloride Flush Syringe 10 Ml) 10 ml IV PRN PRN PRN Reason: LINE FLUSH Reviewed/updated patient's home and current medications Review of Systems - Review of Systems All systems: negative (per HPI) Exam - Constitutional Vital Signs: Temp Pulse Resp BP Pulse Ox 98.7 F 88 16 116/75 93 05/04/20 07:02 05/04/20 07:02 05/04/20 07:02 05/04/20 07:02 05/04/20 07:02 General appearance: no acute distress - EENT Eyes: PERRL, EOM intact - Respiratory Respiratory effort: normal Respiratory: bilateral: CTA - Cardiovascular Rhythm: regular Heart Sounds: Present: S1 & S2 - Gastrointestinal General gastrointestinal: Present: soft (mild distention, diffuse ttp) - Integumentary Integumentary: Present: clear, warm - Neurologic Neurological: alert and oriented x3 - Psychiatric Psychiatric: appropriate mood/affect - Labs CBC & Chem 7: 05/05/20 07:24 05/04/20 09:20 Lab Results: Laboratory Results - last 24 hr 05/03/20 05/03/20 05/03/20 15:28 15:28 15:28 WBC 11.2 H RBC 2.15 L Hgb 7.3 L Hct 21.3 L MCV 99 H MCH 34 H MCHC 34 RDW 16.2 H Plt Count 110 L Add Manual Diff Complete Total Counted 100 Seg Neuts % (Manual) 78.0 H Band Neutrophils % 0 Lymphocytes % (Manual) 16.0 Reactive Lymphs % (Man) 0 Monocytes % (Manual) 6.0 Eosinophils % (Manual) 0 Basophils % (Manual) 0 Metamyelocytes % 0 Myelocytes % 0 Promyelocytes % 0 Blast Cells % 0 Nucleated RBC % Not Reportable Seg Neutrophils # Man 8.7 H Band Neutrophils # 0.0 Lymphocytes # (Manual) 1.8 Abs React Lymphs (Man) 0.0 Monocytes # (Manual) 0.7 Eosinophils # (Manual) 0.0 Basophils # (Manual) 0.0 Metamyelocytes # 0.0 Myelocytes # 0.0 Promyelocytes # 0.0 Blast Cells # 0.0 WBC Morphology Not Reportable Hypersegmented Neuts Not Reportable Hyposegmented Neuts Not Reportable Hypogranular Neuts Not Reportable Smudge Cells Not Reportable Toxic Granulation Not Reportable Toxic Vacuolation Not Reportable Dohle Bodies Not Reportable Pelger-Huet Anomaly Not Reportable Farrah Rods Not Reportable Platelet Estimate Not Reportable Clumped Platelets Not Reportable Plt Clumps, EDTA Not Reportable Large Platelets Not Reportable Giant Platelets Not Reportable Platelet Satelliting Not Reportable Plt Morphology Comment Not Reportable RBC Morphology Normal Dimorphic RBCs Not Reportable Polychromasia Not Reportable Hypochromasia Not Reportable Poikilocytosis Not Reportable Anisocytosis Not Reportable Microcytosis Not Reportable Macrocytosis Not Reportable Spherocytes Not Reportable Pappenheimer Bodies Not Reportable Sickle Cells Not Reportable Target Cells Not Reportable Tear Drop Cells Not Reportable Ovalocytes Not Reportable Helmet Cells Not Reportable [place] Bodies Not Reportable [place] Rings Not Reportable [place] Cells Not Reportable Bite Cells Not Reportable Crenated Cell Not Reportable Elliptocytes Not Reportable Acanthocytes (Spur) Not Reportable Rouleaux Not Reportable Hemoglobin C Crystals Not Reportable Schistocytes Not Reportable Malaria parasites Not Reportable Alfredito Bodies Not Reportable Hem Pathologist Commnt No Sodium 131 L Potassium 2.0 L* Chloride 85.8 L Carbon Dioxide 26 Anion Gap 21 BUN 9 Creatinine 0.7 L Estimated GFR > 60 BUN/Creatinine Ratio 13 Glucose 112 H Calcium 7.8 L Magnesium 1.40 L Total Bilirubin Direct Bilirubin Indirect Bilirubin AST ALT Alkaline Phosphatase Troponin T < 0.010 Total Protein Albumin Albumin/Globulin Ratio Lipase Blood Type Antibody Screen 05/03/20 05/03/20 05/03/20 19:07 20:44 20:51 WBC RBC Hgb Hct MCV MCH MCHC RDW Plt Count Add Manual Diff Total Counted Seg Neuts % (Manual) Band Neutrophils % Lymphocytes % (Manual) Reactive Lymphs % (Man) Monocytes % (Manual) Eosinophils % (Manual) Basophils % (Manual) Metamyelocytes % Myelocytes % Promyelocytes % Blast Cells % Nucleated RBC % Seg Neutrophils # Man Band Neutrophils # Lymphocytes # (Manual) Abs React Lymphs (Man) Monocytes # (Manual) Eosinophils # (Manual) Basophils # (Manual) Metamyelocytes # Myelocytes # Promyelocytes # Blast Cells # WBC Morphology Hypersegmented Neuts Hyposegmented Neuts Hypogranular Neuts Smudge Cells Toxic Granulation Toxic Vacuolation Dohle Bodies Pelger-Huet Anomaly Farrah Rods Platelet Estimate Clumped Platelets Plt Clumps, EDTA Large Platelets Giant Platelets Platelet Satelliting Plt Morphology Comment RBC Morphology Dimorphic RBCs Polychromasia Hypochromasia Poikilocytosis Anisocytosis Microcytosis Macrocytosis Spherocytes Pappenheimer Bodies Sickle Cells Target Cells Tear Drop Cells Ovalocytes Helmet Cells [place] Bodies [place] Rings [place] Cells Bite Cells Crenated Cell Elliptocytes Acanthocytes (Spur) Rouleaux Hemoglobin C Crystals Schistocytes Malaria parasites Alfredito Bodies Hem Pathologist Commnt Sodium Potassium Chloride Carbon Dioxide Anion Gap BUN Creatinine Estimated GFR BUN/Creatinine Ratio Glucose Calcium Magnesium Total Bilirubin 1.00 Direct Bilirubin 0.7 H Indirect Bilirubin 0.3 AST 191 H ALT 50 Alkaline Phosphatase 257 H Troponin T < 0.010 < 0.010 Total Protein 5.9 L Albumin 3.1 L Albumin/Globulin Ratio 1.1 Lipase 225 H Blood Type Antibody Screen 05/03/20 05/04/20 21:00 05:18 WBC RBC Hgb Hct MCV MCH MCHC RDW Plt Count Add Manual Diff Total Counted Seg Neuts % (Manual) Band Neutrophils % Lymphocytes % (Manual) Reactive Lymphs % (Man) Monocytes % (Manual) Eosinophils % (Manual) Basophils % (Manual) Metamyelocytes % Myelocytes % Promyelocytes % Blast Cells % Nucleated RBC % Seg Neutrophils # Man Band Neutrophils # Lymphocytes # (Manual) Abs React Lymphs (Man) Monocytes # (Manual) Eosinophils # (Manual) Basophils # (Manual) Metamyelocytes # Myelocytes # Promyelocytes # Blast Cells # WBC Morphology Hypersegmented Neuts Hyposegmented Neuts Hypogranular Neuts Smudge Cells Toxic Granulation Toxic Vacuolation Dohle Bodies Pelger-Huet Anomaly Farrah Rods Platelet Estimate Clumped Platelets Plt Clumps, EDTA Large Platelets Giant Platelets Platelet Satelliting Plt Morphology Comment RBC Morphology Dimorphic RBCs Polychromasia Hypochromasia Poikilocytosis Anisocytosis Microcytosis Macrocytosis Spherocytes Pappenheimer Bodies Sickle Cells Target Cells Tear Drop Cells Ovalocytes Helmet Cells [place] Bodies [place] Rings [place] Cells Bite Cells Crenated Cell Elliptocytes Acanthocytes (Spur) Rouleaux Hemoglobin C Crystals Schistocytes Malaria parasites Alfredito Bodies Hem Pathologist Commnt Sodium Potassium Chloride Carbon Dioxide Anion Gap BUN Creatinine Estimated GFR BUN/Creatinine Ratio Glucose Calcium Magnesium Total Bilirubin Direct Bilirubin Indirect Bilirubin AST ALT Alkaline Phosphatase Troponin T Total Protein Albumin Albumin/Globulin Ratio Lipase 293 H Blood Type B POSITIVE Antibody Screen Negative - Imaging CT Scan: report reviewed Assessment and Plan 1. Abdominal pain - ct with signs of pancreatitis (mild appearance per report), and lipase/symptoms consistent with acute pancreatitis as well in setting of alcohol abuse. cont IVF's, supportive care 2. Alcohol abuse - monitor/treatment for possible withdrawal per primary 3. Anemia - pt reports dark stools recently; none since admission. trend labs, and will start PPI BID dosing.
[2020-05-04 09:43] LABS: Hemoglobin 6.2 gm/dl (11.8-15.2); Mean Corpuscular HGB Conc 34 % (32-34); Mean Corpuscular Volume 100 fl (84-94); Platelet Count 119 K/mm3 (140-440); Red Blood Count 1.81 M/mm3 (3.65-5.03); Red Cell Distribution Width 16.3 % (13.2-15.2)
[2020-05-04] MEDS: PANTOPRAZOLE 40 MG INJ IV SCH ×2 (09:57→22:55)
[2020-05-04 10:01] LABS: Blood Urea Nitrogen 8 mg/dL (9-20); Calcium 7.2 mg/dL (8.4-10.2); Hemolysis Index 0
[2020-05-04 10:11] LABS: Hematocrit 18.1 % (35.5-45.6)
[2020-05-04 10:19] LABS: BUN/Creatinine Ratio 16
[2020-05-04 10:51] LABS: Basophils % (Manual) 0 % (0.0-1.8); Hypochromasia 2+; Total Cells Counted 100
[2020-05-04 10:56] LABS: Anisocytosis 1+; Tear Drop Cells Rare
[2020-05-04 10:57] LABS: Platelet Estimate Consistent w Auto
[2020-05-04] MEDS ORDERED: SODIUM CHLORIDE 0.9% 500 ML 500 ML IV ONE (11:00)
[2020-05-04] MEDS: LORazepam 2 MG/ML VIAL IV PRN (20:19)
[2020-05-05] MEDS: LORazepam 2 MG/ML VIAL IV PRN (01:30)
[2020-05-05 07:57] LABS: Hematocrit 27.4 % (35.5-45.6); Hemoglobin 9.4 gm/dl (11.8-15.2); Mean Corpuscular HGB Conc 34 % (32-34); Mean Corpuscular Volume 96 fl (84-94); Platelet Count 138 K/mm3 (140-440); Red Blood Count 2.85 M/mm3 (3.65-5.03); Red Cell Distribution Width 17.2 % (13.2-15.2)
[2020-05-05 08:06] LABS: INR 1.08 (0.87-1.13)
--- NOTE | 2020-05-05 08:22 | Progress Note ---
Assessment and Plan Assessment and plan: (1) Pancreatitis Current Visit: Yes Status: Acute Qualifiers: Chronicity: acute Pancreatitis type: alcohol induced Acute pancreatitis complication: unspecified Qualified Code(s): K85.20 - Alcohol induced acute pancreatitis without necrosis or infection Plan to address problem: Patient made n.p.o. and placed on IV fluid and IV analgesic medication. (2) Abdominal pain Current Visit: Yes Status: Acute Qualifiers: Abdominal location: generalized Qualified Code(s): R10.84 - Generalized abdominal pain Plan to address problem: Probably secondary to the pancreatitis. We will continue on analgesic medication. (3) Anemia Current Visit: Yes Status: Acute Qualifiers: Anemia type: unspecified type Qualified Code(s): D64.9 - Anemia, unspecified Plan to address problem: Possibly chronic. Will monitor CBC. Patient is Hemoccult positive and will place a consult to gastroenterology for evaluation. 05/04/20 -Patient's hemoglobin dropped down to 6.2 and I ordered 2 units of packed RBC for transfusion (4) Hypokalemia Current Visit: Yes Status: Acute Plan to address problem: Potassium will be repleted and will monitor chemistry. (5) Hypomagnesemia Current Visit: Yes Status: Acute Plan to address problem: Magnesium will be repleted and will monitor chemistry. (6) DVT prophylaxis Current Visit: Yes Status: Acute Plan to address problem: Patient placed on sequential compression device. (7) Full code status Current Visit: Yes Status: Acute 05/05/2020 -Patient was transfused 2 units of blood and posttransfusion hemoglobin is 9.2, patient denied dark stool after admission. Patient was seen by GI and started on PPI -Acute pancreatitis, will continue pain control, bowel rest, IV fluids and supportive care. Patient's abdominal pain subsided and patient states he is hungry. Going to start him on full liquid diet and then advance as tolerated. History Interval history: Patient was seen and evaluated this morning Patient's abdominal pain subsided, started on diet Hospitalist Physical - Physical exam Narrative exam: Not in cardiopulmonary distress. The patient appeared well nourished and normally developed. Vital signs as documented. Head exam is unremarkable. No scleral icterus . Neck is without jugular venous distension, thyromegaly, or carotid bruits. Lungs are clear to auscultation. Cardiac exam reveals regular rate and Rhythm. Abdominal exam reveals epigastric tenderness. Extremities are nonedematous and both femoral and pedal pulses are normal. NETWORK SUPPORT MANAGER: Alert and oriented 3. No focal weakness. - Constitutional Vitals: Temp Pulse Resp BP Pulse Ox 98.9 F 94 H 18 167/103 97 05/05/20 04:51 05/05/20 04:51 05/05/20 04:51 05/05/20 04:51 05/05/20 04:51 General appearance: Present: no acute distress, well-nourished, other (Dry oral mucosa, appears lethargic) HEART Score - HEART Score EKG: Normal Age: < 45 Risk factors: 1-2 risk factors Troponin: Troponin T < 0.010 ng/mL (0.00-0.029) 05/03/20 20:44 Troponin: < normal limit Results - Labs CBC & Chem 7: 05/05/20 07:24 05/05/20 07:24 Labs: Laboratory Last Values WBC 5.4 K/mm3 (4.5-11.0) 05/05/20 07:24 RBC 2.85 M/mm3 (3.65-5.03) L 05/05/20 07:24 Hgb 9.4 gm/dl (11.8-15.2) L D 05/05/20 07:24 Hct 27.4 % (35.5-45.6) L D 05/05/20 07:24 MCV 96 fl (84-94) H 05/05/20 07:24 MCH 33 pg (28-32) H 05/05/20 07:24 MCHC 34 % (32-34) 05/05/20 07:24 RDW 17.2 % (13.2-15.2) H 05/05/20 07:24 Plt Count 138 K/mm3 (140-440) L 05/05/20 07:24 Josephine % (Auto) Finisher Denture 05/05/20 07:24 Add Manual Diff Complete 05/04/20 09:20 Total Counted 100 05/04/20 09:20 Seg Neuts % (Manual) 78.0 % (40.0-70.0) H 05/04/20 09:20 Band Neutrophils % 0 % 05/04/20 09:20 Lymphocytes % (Manual) 19.0 % (13.4-35.0) 05/04/20 09:20 Reactive Lymphs % (Man) 0 % 05/04/20 09:20 Monocytes % (Manual) 2.0 % (0.0-7.3) 05/04/20 09:20 Eosinophils % (Manual) 1.0 % (0.0-4.3) 05/04/20 09:20 Basophils % (Manual) 0 % (0.0-1.8) 05/04/20 09:20 Metamyelocytes % 0 % 05/04/20 09:20 Myelocytes % 0 % 05/04/20 09:20 Promyelocytes % 0 % 05/04/20 09:20 Blast Cells % 0 % 05/04/20 09:20 Nucleated RBC % Not Reportable 05/04/20 09:20 Seg Neutrophils # Man 4.4 K/mm3 (1.8-7.7) 05/04/20 09:20 Band Neutrophils # 0.0 K/mm3 05/04/20 09:20 Lymphocytes # (Manual) 1.1 K/mm3 (1.2-5.4) L 05/04/20 09:20 Abs React Lymphs (Man) 0.0 K/mm3 05/04/20 09:20 Monocytes # (Manual) 0.1 K/mm3 (0.0-0.8) 05/04/20 09:20 Eosinophils # (Manual) 0.1 K/mm3 (0.0-0.4) 05/04/20 09:20 Basophils # (Manual) 0.0 K/mm3 (0.0-0.1) 05/04/20 09:20 Metamyelocytes # 0.0 K/mm3 05/04/20 09:20 Myelocytes # 0.0 K/mm3 05/04/20 09:20 Promyelocytes # 0.0 K/mm3 05/04/20 09:20 Blast Cells # 0.0 K/mm3 05/04/20 09:20 WBC Morphology Not Reportable 05/04/20 09:20 Hypersegmented Neuts Not Reportable 05/04/20 09:20 Hyposegmented Neuts Not Reportable 05/04/20 09:20 Hypogranular Neuts Not Reportable 05/04/20 09:20 Smudge Cells Not Reportable 05/04/20 09:20 Toxic Granulation Not Reportable 05/04/20 09:20 Toxic Vacuolation Not Reportable 05/04/20 09:20 Dohle Bodies Not Reportable 05/04/20 09:20 Pelger-Huet Anomaly Not Reportable 05/04/20 09:20 Farrah Rods Not Reportable 05/04/20 09:20 Platelet Estimate Consistent w auto 05/04/20 09:20 Clumped Platelets Not Reportable 05/04/20 09:20 Plt Clumps, EDTA Not Reportable 05/04/20 09:20 Large Platelets Not Reportable 05/04/20 09:20 Giant Platelets Not Reportable 05/04/20 09:20 Platelet Satelliting Not Reportable 05/04/20 09:20 Plt Morphology Comment Not Reportable 05/04/20 09:20 RBC Morphology Not Reportable 05/04/20 09:20 Dimorphic RBCs Not Reportable 05/04/20 09:20 Polychromasia Few 05/04/20 09:20 Hypochromasia 2+ 05/04/20 09:20 Poikilocytosis Not Reportable 05/04/20 09:20 Anisocytosis 1+ 05/04/20 09:20 Microcytosis Not Reportable 05/04/20 09:20 Macrocytosis Not Reportable 05/04/20 09:20 Spherocytes Not Reportable 05/04/20 09:20 Pappenheimer Bodies Not Reportable 05/04/20 09:20 Sickle Cells Not Reportable 05/04/20 09:20 Target Cells Not Reportable 05/04/20 09:20 Tear Drop Cells Rare 05/04/20 09:20 Ovalocytes Not Reportable 05/04/20 09:20 Helmet Cells Not Reportable 05/04/20 09:20 [place] Bodies Not Reportable 05/04/20 09:20 [place] Rings Not Reportable 05/04/20 09:20 Leela Cells Not Reportable 05/04/20 09:20 Bite Cells Not Reportable 05/04/20 09:20 Crenated Cell Not Reportable 05/04/20 09:20 Elliptocytes Few 05/04/20 09:20 Acanthocytes (Spur) Not Reportable 05/04/20 09:20 Rouleaux Not Reportable 05/04/20 09:20 Hemoglobin C Crystals Not Reportable 05/04/20 09:20 Schistocytes Not Reportable 05/04/20 09:20 Malaria parasites Not Reportable 05/04/20 09:20 Alfredito Bodies Not Reportable 05/04/20 09:20 Hem Pathologist Commnt No 05/04/20 09:20 PT 13.8 Sec. (12.2-14.9) 05/05/20 07:24 INR 1.08 (0.87-1.13) 05/05/20 07:24 Sodium 138 mmol/L (137-145) D 05/04/20 09:20 Potassium 2.1 mmol/L (3.6-5.0) L* 05/04/20 09:20 Chloride 96.8 mmol/L (98-107) L 05/04/20 09:20 Carbon Dioxide 32 mmol/L (22-30) H 05/04/20 09:20 Anion Gap 11 mmol/L 05/04/20 09:20 BUN 8 mg/dL (9-20) L 05/04/20 09:20 Creatinine 0.5 mg/dL (0.8-1.3) L 05/04/20 09:20 Estimated GFR > 60 ml/min 05/04/20 09:20 BUN/Creatinine Ratio 16 % 05/04/20 09:20 Glucose 83 mg/dL (75-100) 05/04/20 09:20 Calcium 7.2 mg/dL (8.4-10.2) L 05/04/20 09:20 Phosphorus 2.00 mg/dL (2.5-4.5) L 05/04/20 09:20 Magnesium 1.60 mg/dL (1.7-2.3) L 05/04/20 09:20 Total Bilirubin 1.00 mg/dL (0.1-1.2) 05/03/20 20:51 Direct Bilirubin 0.7 mg/dL (0-0.2) H 05/03/20 20:51 Indirect Bilirubin 0.3 mg/dL 05/03/20 20:51 AST 191 units/L (5-40) H 05/03/20 20:51 ALT 50 units/L (7-56) 05/03/20 20:51 Alkaline Phosphatase 257 units/L (35-129) H 05/03/20 20:51 Troponin T < 0.010 ng/mL (0.00-0.029) 05/03/20 20:44 Total Protein 5.9 g/dL (6.3-8.2) L 05/03/20 20:51 Albumin 3.1 g/dL (3.9-5) L 05/03/20 20:51 Albumin/Globulin Ratio 1.1 % 05/03/20 20:51 Lipase 293 units/L (13-60) H 05/04/20 05:18 Blood Type B POSITIVE 05/03/20 21:00 Antibody Screen Negative 05/03/20 21:00 Crossmatch See Detail 05/03/20 21:00 Heard/IV: Voiding Method Bedside Commode IV Catheter Type [Left Upper Peripheral IV arm] IV Catheter Type [Right Peripheral IV Antecubital] Active Medications - Current Medications Current Medications: Generic Name Dose Route Start Last Admin Trade Name Freq PRN Reason Stop Dose Admin Acetaminophen 650 mg 05/04/20 00:08 Tylenol PO Q4H PRN Pain MILD(1-3)/Fever >100.5/FREITAS Hydromorphone HCl 0.5 mg 05/04/20 00:08 05/04/20 17:24 Dilaudid IV 0.5 mg Q3H PRN Administration Pain , Severe (7-10) Sodium Chloride 1,000 mls @ 150 mls/hr 05/04/20 00:15 05/04/20 09:56 Nacl 0.9% 1000 Ml IV 150 mls/hr DIRECT TWIN Administration Lorazepam 2 mg 05/03/20 20:48 05/05/20 01:30 Ativan IV 2 mg Q1HR PRN Administration CIWA-Ar 8-15 Lorazepam 4 mg 05/03/20 20:48 Ativan IV Q1HR PRN CIWA-Ar 16-25 Lorazepam 4 mg 05/03/20 20:48 Ativan IV Q15MIN PRN CIWA-Ar >25 Magnesium Hydroxide 30 ml 05/04/20 00:08 Milk Of Magnesia PO Q4H PRN Constipation Ondansetron HCl 4 mg 05/04/20 00:08 Zofran IV Q8H PRN Nausea And Vomiting Pantoprazole Sodium 40 mg 05/04/20 10:00 05/04/20 22:55 Protonix IV 40 mg BID TWIN Administration Sodium Chloride 10 ml 05/04/20 10:00 05/04/20 22:55 Sodium Chloride Flush Syringe 10 Ml IV 10 ml BID TWIN Administration Sodium Chloride 10 ml 05/04/20 00:08 Sodium Chloride Flush Syringe 10 Ml IV PRN PRN LINE FLUSH
[2020-05-05] MEDS: HYDROmorphone 1 MG/1 ML INJ IV PRN ×3 (08:47→20:53)
[2020-05-05] MEDS: SODIUM CHLORIDE 0.9% 1000 ML 1,000 ML IV SCH ×2 (08:55→18:45)
[2020-05-05] MEDS: PANTOPRAZOLE 40 MG INJ IV SCH ×2 (09:00→21:57)
[2020-05-05] MEDS ORDERED: oxyCODONE 5 MG TAB PO PRN (10:12)
[2020-05-05 10:46] LABS: BUN/Creatinine Ratio 10; Blood Urea Nitrogen 5 mg/dL (9-20); Calcium 7.3 mg/dL (8.4-10.2); Hemolysis Index 2
[2020-05-05] MEDS ORDERED: POTASSIUM CHLORIDE ER 20 MEQ TAB PO ONE ×3 (10:55→15:30)
[2020-05-05 11:58] LABS: Anisocytosis 1+; Band Neutrophils # (Manual) 0.2 K/mm3; Basophils % (Manual) 0 % (0.0-1.8); Hypochromasia 1+; Total Cells Counted 100
[2020-05-05 11:59] LABS: Ovalocytes Few; Platelet Estimate Consistent w Auto; Stomatocytes 1+
--- NOTE | 2020-05-05 12:30 | Gastroenterology Progress Note ---
Assessment and Plan 1. Acute pancreatitis - likely 2/2 alcohol, abd pain improved, requesting to eat. start liquid diet and advance as tolerated, cont supportive care 2. Anemia with dark stools - s/p 2 units of blood with appropriate rise in H/H. no overt bleeding. cont PPI and monitor labs. will hold off on endoscopy unless signs of further bleeding/drop in hgb Subjective Date of service: 05/05/20 Principal diagnosis: abd pain Interval history: pt reports improvement in abd pain, requesting to eat. no overt gi bleeding Objective - Constitutional Vitals: Temp Pulse Resp BP Pulse Ox 98.5 F 83 18 154/100 97 05/05/20 11:36 05/05/20 11:36 05/05/20 11:36 05/05/20 11:36 05/05/20 11:36 General appearance: no acute distress - Respiratory Respiratory effort: normal Respiratory: bilateral: CTA - Cardiovascular Rhythm: regular Heart Sounds: Present: S1 & S2 - Gastrointestinal General gastrointestinal: Present: soft, non-tender, non-distended - Labs CBC & Chem 7: 05/05/20 07:24 05/05/20 07:24 Labs: Laboratory Results - last 24 hr 05/03/20 05/05/20 05/05/20 21:00 07:24 07:24 WBC 5.4 RBC 2.85 L Hgb 9.4 L D Hct 27.4 L D MCV 96 H MCH 33 H MCHC 34 RDW 17.2 H Plt Count 138 L Stephens % (Auto) Morning Caregiver Add Manual Diff Complete Total Counted 100 Seg Neuts % (Manual) 62.0 Band Neutrophils % 4.0 Lymphocytes % (Manual) 22.0 Reactive Lymphs % (Man) 1.0 Monocytes % (Manual) 9.0 H Eosinophils % (Manual) 2.0 Basophils % (Manual) 0 Metamyelocytes % 0 Myelocytes % 0 Promyelocytes % 0 Blast Cells % 0 Nucleated RBC % 3.0 H Seg Neutrophils # Man 3.3 Band Neutrophils # 0.2 Lymphocytes # (Manual) 1.2 Abs React Lymphs (Man) 0.1 Monocytes # (Manual) 0.5 Eosinophils # (Manual) 0.1 Basophils # (Manual) 0.0 Metamyelocytes # 0.0 Myelocytes # 0.0 Promyelocytes # 0.0 Blast Cells # 0.0 WBC Morphology Not Reportable Hypersegmented Neuts Not Reportable Hyposegmented Neuts Not Reportable Hypogranular Neuts Not Reportable Smudge Cells Not Reportable Toxic Granulation Not Reportable Toxic Vacuolation Not Reportable Dohle Bodies Not Reportable Pelger-Huet Anomaly Not Reportable Farrah Rods Not Reportable Platelet Estimate Consistent w auto Clumped Platelets Not Reportable Plt Clumps, EDTA Not Reportable Large Platelets Not Reportable Giant Platelets Not Reportable Platelet Satelliting Not Reportable Plt Morphology Comment Not Reportable RBC Morphology Not Reportable Dimorphic RBCs Not Reportable Polychromasia Few Hypochromasia 1+ Poikilocytosis Not Reportable Anisocytosis 1+ Microcytosis 1+ Macrocytosis Not Reportable Spherocytes Not Reportable Pappenheimer Bodies Not Reportable Sickle Cells Not Reportable Target Cells Not Reportable Tear Drop Cells Not Reportable Ovalocytes Few Stomatocytes 1+ Helmet Cells Not Reportable Veras-[place] Bodies Not Reportable [place] Rings Not Reportable [place] Cells Not Reportable Bite Cells Not Reportable Crenated Cell Not Reportable Elliptocytes Not Reportable Acanthocytes (Spur) Not Reportable Rouleaux Not Reportable Hemoglobin C Crystals Not Reportable Schistocytes Not Reportable Malaria parasites Not Reportable Alfredito Bodies Not Reportable Hem Pathologist Commnt No PT 13.8 INR 1.08 Sodium Potassium Chloride Carbon Dioxide Anion Gap BUN Creatinine Estimated GFR BUN/Creatinine Ratio Glucose Calcium Blood Type B POSITIVE Antibody Screen Negative Crossmatch See Detail 05/05/20 07:24 WBC RBC Hgb Hct MCV MCH MCHC RDW Plt Count Stephens % (Auto) Add Manual Diff Total Counted Seg Neuts % (Manual) Band Neutrophils % Lymphocytes % (Manual) Reactive Lymphs % (Man) Monocytes % (Manual) Eosinophils % (Manual) Basophils % (Manual) Metamyelocytes % Myelocytes % Promyelocytes % Blast Cells % Nucleated RBC % Seg Neutrophils # Man Band Neutrophils # Lymphocytes # (Manual) Abs React Lymphs (Man) Monocytes # (Manual) Eosinophils # (Manual) Basophils # (Manual) Metamyelocytes # Myelocytes # Promyelocytes # Blast Cells # WBC Morphology Hypersegmented Neuts Hyposegmented Neuts Hypogranular Neuts Smudge Cells Toxic Granulation Toxic Vacuolation Dohle Bodies Pelger-Huet Anomaly Farrah Rods Platelet Estimate Clumped Platelets Plt Clumps, EDTA Large Platelets Giant Platelets Platelet Satelliting Plt Morphology Comment RBC Morphology Dimorphic RBCs Polychromasia Hypochromasia Poikilocytosis Anisocytosis Microcytosis Macrocytosis Spherocytes Pappenheimer Bodies Sickle Cells Target Cells Tear Drop Cells Ovalocytes Stomatocytes Helmet Cells Veras-[place] Bodies [place] Rings Leela Cells Bite Cells Crenated Cell Elliptocytes Acanthocytes (Spur) Rouleaux Hemoglobin C Crystals Schistocytes Malaria parasites Alfredito Bodies Hem Pathologist Commnt PT INR Sodium 138 Potassium 2.4 L* Chloride 98.6 Carbon Dioxide 28 Anion Gap 14 BUN 5 L Creatinine 0.5 L Estimated GFR > 60 BUN/Creatinine Ratio 10 Glucose 88 Calcium 7.3 L Blood Type Antibody Screen Crossmatch
[2020-05-05] MEDS ORDERED: POTASSIUM CHLORIDE 20 MEQ PACKET FEEDTUBE ONE (15:00)
[2020-05-06] MEDS: HYDROmorphone 1 MG/1 ML INJ IV PRN ×2 (00:53→05:32)
[2020-05-06 04:50] LABS: Hematocrit 28.9 % (35.5-45.6); Hemoglobin 9.6 gm/dl (11.8-15.2); Mean Corpuscular HGB Conc 33 % (32-34); Mean Corpuscular Volume 98 fl (84-94); Platelet Count 154 K/mm3 (140-440); Red Blood Count 2.94 M/mm3 (3.65-5.03); Red Cell Distribution Width 18.1 % (13.2-15.2)
[2020-05-06 05:13] LABS: Blood Urea Nitrogen 3 mg/dL (9-20); Calcium 6.8 mg/dL (8.4-10.2); Hemolysis Index 12
[2020-05-06 05:14] LABS: BUN/Creatinine Ratio 6
[2020-05-06 06:50] LABS: Anisocytosis 1+; Eosinophils % (Manual) 0 % (0.0-4.3); Macrocytosis 1+; Platelet Estimate Consistent w Auto; Stomatocytes 1+; Total Cells Counted 100
[2020-05-06 08:07] VITALS: BP 163/101
[2020-05-06] MEDS ORDERED: HYDROcodone/ACETAMINOPHEN 7.5-325MG TAB PO PRN (09:14)
--- NOTE | 2020-05-06 09:16 | Progress Note ---
Assessment and Plan Assessment and plan: (1) Pancreatitis Current Visit: Yes Status: Acute Qualifiers: Chronicity: acute Pancreatitis type: alcohol induced Acute pancreatitis complication: unspecified Qualified Code(s): K85.20 - Alcohol induced acute pancreatitis without necrosis or infection Plan to address problem: Patient made n.p.o. and placed on IV fluid and IV analgesic medication. (2) Abdominal pain Current Visit: Yes Status: Acute Qualifiers: Abdominal location: generalized Qualified Code(s): R10.84 - Generalized abdominal pain Plan to address problem: Probably secondary to the pancreatitis. We will continue on analgesic medication. (3) Anemia Current Visit: Yes Status: Acute Qualifiers: Anemia type: unspecified type Qualified Code(s): D64.9 - Anemia, unspecified Plan to address problem: Possibly chronic. Will monitor CBC. Patient is Hemoccult positive and will place a consult to gastroenterology for evaluation. 05/04/20 -Patient's hemoglobin dropped down to 6.2 and I ordered 2 units of packed RBC for transfusion (4) Hypokalemia Current Visit: Yes Status: Acute Plan to address problem: Potassium will be repleted and will monitor chemistry. (5) Hypomagnesemia Current Visit: Yes Status: Acute Plan to address problem: Magnesium will be repleted and will monitor chemistry. (6) DVT prophylaxis Current Visit: Yes Status: Acute Plan to address problem: Patient placed on sequential compression device. (7) Full code status Current Visit: Yes Status: Acute 05/05/2020 -Patient was transfused 2 units of blood and posttransfusion hemoglobin is 9.2, patient denied dark stool after admission. Patient was seen by GI and started on PPI -Acute pancreatitis, will continue pain control, bowel rest, IV fluids and supportive care. Patient's abdominal pain subsided and patient states he is hungry. Going to start him on full liquid diet and then advance as tolerated. 05/06/2020 -Patient tolerated diet. No abdominal pain. Patient can be discharged with p.o. Protonix and follow-up with GI in the office in 2 weeks. History Interval history: Patient was seen and evaluated this morning Patient's abdominal pain subsided, started on diet Per the patient's request Dilromainid Hospitalist Physical - Physical exam Narrative exam: Not in cardiopulmonary distress. The patient appeared well nourished and normally developed. Vital signs as documented. Head exam is unremarkable. No scleral icterus . Neck is without jugular venous distension, thyromegaly, or carotid bruits. Lungs are clear to auscultation. Cardiac exam reveals regular rate and Rhythm. Abdominal exam reveals epigastric tenderness. Extremities are nonedematous and both femoral and pedal pulses are normal. 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 No focal weakness. - Constitutional Vitals: Temp Pulse Resp BP Pulse Ox 98.2 F 73 18 163/101 99 05/06/20 07:45 05/06/20 07:45 05/06/20 07:45 05/06/20 07:45 05/06/20 07:45 General appearance: Present: no acute distress, well-nourished, other (Dry oral mucosa, appears lethargic) HEART Score - HEART Score EKG: Normal Age: < 45 Risk factors: 1-2 risk factors Troponin: Troponin T < 0.010 ng/mL (0.00-0.029) 05/03/20 20:44 Troponin: < normal limit Results - Labs CBC & Chem 7: 05/06/20 04:04 05/06/20 04:04 Labs: Laboratory Last Values WBC 5.1 K/mm3 (4.5-11.0) 05/06/20 04:04 RBC 2.94 M/mm3 (3.65-5.03) L 05/06/20 04:04 Hgb 9.6 gm/dl (11.8-15.2) L 05/06/20 04:04 Hct 28.9 % (35.5-45.6) L 05/06/20 04:04 MCV 98 fl (84-94) H 05/06/20 04:04 MCH 33 pg (28-32) H 05/06/20 04:04 MCHC 33 % (32-34) 05/06/20 04:04 RDW 18.1 % (13.2-15.2) H 05/06/20 04:04 Plt Count 154 K/mm3 (140-440) 05/06/20 04:04 [place] % (Auto) Picking Table Worker 05/06/20 04:04 Add Manual Diff Complete 05/06/20 04:04 Total Counted 100 05/06/20 04:04 Seg Neuts % (Manual) 59.0 % (40.0-70.0) 05/06/20 04:04 Band Neutrophils % 0 % 05/06/20 04:04 Lymphocytes % (Manual) 22.0 % (13.4-35.0) 05/06/20 04:04 Reactive Lymphs % (Man) 1.0 % 05/06/20 04:04 Monocytes % (Manual) 17.0 % (0.0-7.3) H 05/06/20 04:04 Eosinophils % (Manual) 0 % (0.0-4.3) 05/06/20 04:04 Basophils % (Manual) 1.0 % (0.0-1.8) 05/06/20 04:04 Metamyelocytes % 0 % 05/06/20 04:04 Myelocytes % 0 % 05/06/20 04:04 Promyelocytes % 0 % 05/06/20 04:04 Blast Cells % 0 % 05/06/20 04:04 Nucleated RBC % Not Reportable 05/06/20 04:04 Seg Neutrophils # Man 3.0 K/mm3 (1.8-7.7) 05/06/20 04:04 Band Neutrophils # 0.0 K/mm3 05/06/20 04:04 Lymphocytes # (Manual) 1.1 K/mm3 (1.2-5.4) L 05/06/20 04:04 Abs React Lymphs (Man) 0.1 K/mm3 05/06/20 04:04 Monocytes # (Manual) 0.9 K/mm3 (0.0-0.8) H 05/06/20 04:04 Eosinophils # (Manual) 0.0 K/mm3 (0.0-0.4) 05/06/20 04:04 Basophils # (Manual) 0.1 K/mm3 (0.0-0.1) 05/06/20 04:04 Metamyelocytes # 0.0 K/mm3 05/06/20 04:04 Myelocytes # 0.0 K/mm3 05/06/20 04:04 Promyelocytes # 0.0 K/mm3 05/06/20 04:04 Blast Cells # 0.0 K/mm3 05/06/20 04:04 WBC Morphology Not Reportable 05/06/20 04:04 Hypersegmented Neuts Not Reportable 05/06/20 04:04 Hyposegmented Neuts Not Reportable 05/06/20 04:04 Hypogranular Neuts Not Reportable 05/06/20 04:04 Smudge Cells Not Reportable 05/06/20 04:04 Toxic Granulation Not Reportable 05/06/20 04:04 Toxic Vacuolation Not Reportable 05/06/20 04:04 Dohle Bodies Not Reportable 05/06/20 04:04 Pelger-Huet Anomaly Not Reportable 05/06/20 04:04 Farrah Rods Not Reportable 05/06/20 04:04 Platelet Estimate Consistent w auto 05/06/20 04:04 Clumped Platelets Not Reportable 05/06/20 04:04 Plt Clumps, EDTA Not Reportable 05/06/20 04:04 Large Platelets Not Reportable 05/06/20 04:04 Giant Platelets Not Reportable 05/06/20 04:04 Platelet Satelliting Not Reportable 05/06/20 04:04 Plt Morphology Comment Not Reportable 05/06/20 04:04 RBC Morphology Not Reportable 05/06/20 04:04 Dimorphic RBCs Not Reportable 05/06/20 04:04 Polychromasia Not Reportable 05/06/20 04:04 Hypochromasia Not Reportable 05/06/20 04:04 Poikilocytosis Not Reportable 05/06/20 04:04 Anisocytosis 1+ 05/06/20 04:04 Microcytosis Not Reportable 05/06/20 04:04 Macrocytosis 1+ 05/06/20 04:04 Spherocytes Not Reportable 05/06/20 04:04 Pappenheimer Bodies Not Reportable 05/06/20 04:04 Sickle Cells Not Reportable 05/06/20 04:04 Target Cells Not Reportable 05/06/20 04:04 Tear Drop Cells Not Reportable 05/06/20 04:04 Ovalocytes Not Reportable 05/06/20 04:04 Stomatocytes 1+ 05/06/20 04:04 Helmet Cells Not Reportable 05/06/20 04:04 [place] Bodies Not Reportable 05/06/20 04:04 [place] Rings Not Reportable 05/06/20 04:04 [place] Cells Not Reportable 05/06/20 04:04 Bite Cells Not Reportable 05/06/20 04:04 Crenated Cell Not Reportable 05/06/20 04:04 Elliptocytes Not Reportable 05/06/20 04:04 Acanthocytes (Spur) Not Reportable 05/06/20 04:04 Rouleaux Not Reportable 05/06/20 04:04 Hemoglobin C Crystals Not Reportable 05/06/20 04:04 Schistocytes Not Reportable 05/06/20 04:04 Malaria parasites Not Reportable 05/06/20 04:04 Alfredito Bodies Not Reportable 05/06/20 04:04 Hem Pathologist Commnt No 05/06/20 04:04 PT 13.8 Sec. (12.2-14.9) 05/05/20 07:24 INR 1.08 (0.87-1.13) 05/05/20 07:24 Sodium 141 mmol/L (137-145) 05/06/20 04:04 Potassium 3.3 mmol/L (3.6-5.0) L D 05/06/20 04:04 Chloride 102.9 mmol/L (98-107) 05/06/20 04:04 Carbon Dioxide 25 mmol/L (22-30) 05/06/20 04:04 Anion Gap 16 mmol/L 05/06/20 04:04 BUN 3 mg/dL (9-20) L 05/06/20 04:04 Creatinine 0.5 mg/dL (0.8-1.3) L 05/06/20 04:04 Estimated GFR > 60 ml/min 05/06/20 04:04 BUN/Creatinine Ratio 6 % 05/06/20 04:04 Glucose 98 mg/dL (75-100) 05/06/20 04:04 Calcium 6.8 mg/dL (8.4-10.2) L 05/06/20 04:04 Phosphorus 2.00 mg/dL (2.5-4.5) L 05/04/20 09:20 Magnesium 1.60 mg/dL (1.7-2.3) L 05/04/20 09:20 Total Bilirubin 1.00 mg/dL (0.1-1.2) 05/03/20 20:51 Direct Bilirubin 0.7 mg/dL (0-0.2) H 05/03/20 20:51 Indirect Bilirubin 0.3 mg/dL 05/03/20 20:51 AST 191 units/L (5-40) H 05/03/20 20:51 ALT 50 units/L (7-56) 05/03/20 20:51 Alkaline Phosphatase 257 units/L (35-129) H 05/03/20 20:51 Troponin T < 0.010 ng/mL (0.00-0.029) 05/03/20 20:44 Total Protein 5.9 g/dL (6.3-8.2) L 05/03/20 20:51 Albumin 3.1 g/dL (3.9-5) L 05/03/20 20:51 Albumin/Globulin Ratio 1.1 % 05/03/20 20:51 Lipase 293 units/L (13-60) H 05/04/20 05:18 Blood Type B POSITIVE 05/03/20 21:00 Antibody Screen Negative 05/03/20 21:00 Crossmatch See Detail 05/03/20 21:00 Heard/IV: Voiding Method Toilet IV Catheter Type [Left Upper Peripheral IV arm] IV Catheter Type [Right Peripheral IV Antecubital] Active Medications - Current Medications Current Medications: Generic Name Dose Route Start Last Admin Trade Name Freq PRN Reason Stop Dose Admin Acetaminophen 650 mg 05/04/20 00:08 Tylenol PO Q4H PRN Pain MILD(1-3)/Fever >100.5/FREITAS Hydrocodone Bitart/Acetaminophen 1 each 05/06/20 09:14 [place] 7.5/325 PO Q4H PRN Pain, Moderate (4-6) Lorazepam 2 mg 05/03/20 20:48 05/05/20 01:30 Ativan IV 2 mg Q1HR PRN Administration CIWA-Ar 8-15 Lorazepam 4 mg 05/03/20 20:48 Ativan IV Q1HR PRN CIWA-Ar 16-25 Lorazepam 4 mg 05/03/20 20:48 Ativan IV Q15MIN PRN CIWA-Ar >25 Magnesium Hydroxide 30 ml 05/04/20 00:08 Milk Of Magnesia PO Q4H PRN Constipation Ondansetron HCl 4 mg 05/04/20 00:08 Zofran IV Q8H PRN Nausea And Vomiting Pantoprazole Sodium 40 mg 05/06/20 16:30 Protonix PO BIDAC TWIN Sodium Chloride 10 ml 05/04/20 10:00 05/05/20 22:00 Sodium Chloride Flush Syringe 10 Ml IV 10 ml BID TWIN Administration Sodium Chloride 10 ml 05/04/20 00:08 Sodium Chloride Flush Syringe 10 Ml IV PRN PRN LINE FLUSH
[2020-05-06] MEDS ORDERED: hydrALAZINE 20 MG/1 ML INJ IV PRN (09:30)
--- NOTE | 2020-05-06 10:46 | Discharge Summary ---
Providers - Providers Date of Admission: 05/03/20 23:38 Date of discharge: 05/06/20 Attending physician: MIGEL PELAYO MD 05/03/20 23:50 Consult to Physician [CONS] Routine Comment: Consulting Provider: CHAR HURTADO Physician Instructions: Reason For Exam: gi bleed, anemia Primary care physician: LOADING DOCK [employer] Hospitalization Reason for admission: Pancreatitis, GI bleed Condition: Stable Hospital course: 40-year-old -[place]onese male with known history of alcohol abuse and pancreatitis presenting to the emergency room today complaining of abdominal pain, shortness of breath and chest discomfort. It was said to a status earlier today and abdominal pain is said to be more in the epigastric region and radiating towards the chest. Pain is said to be 10/10 in severity. Pain is worse on movement and improves while resting. Patient denies any fever or chills, no headache or dizziness, no sick contacts or recent travel, no contact with anyone with COVID-19, denies any diarrhea. He has had some nausea and vomiting and states his abdomen feels bloated. Patient drinks alcohol almost on a daily basis and last alcohol intake was last night. He also smokes about half a pack was cigarette on a daily basis. Work-up in the emergency room today reveals elevated lipase on the lab test, CT of the abdomen and pelvis reveals findings consistent with pancreatitis. Patient being admitted for acute pancreatitis. (1) Pancreatitis Current Visit: Yes Status: Acute Qualifiers: Chronicity: acute Pancreatitis type: alcohol induced Acute pancreatitis complication: unspecified Qualified Code(s): K85.20 - Alcohol induced acute pancreatitis without necrosis or infection Plan to address problem: Patient made n.p.o. and placed on IV fluid and IV analgesic medication. (2) Abdominal pain Current Visit: Yes Status: Acute Qualifiers: Abdominal location: generalized Qualified Code(s): R10.84 - Generalized abdominal pain Plan to address problem: Probably secondary to the pancreatitis. We will continue on analgesic medication. (3) Anemia Current Visit: Yes Status: Acute Qualifiers: Anemia type: unspecified type Qualified Code(s): D64.9 - Anemia, unspecified Plan to address problem: Possibly chronic. Will monitor CBC. Patient is Hemoccult positive and will place a consult to gastroenterology for evaluation. 05/04/20 -Patient's hemoglobin dropped down to 6.2 and I ordered 2 units of packed RBC for transfusion (4) Hypokalemia Current Visit: Yes Status: Acute Plan to address problem: Potassium will be repleted and will monitor chemistry. (5) Hypomagnesemia Current Visit: Yes Status: Acute Plan to address problem: Magnesium will be repleted and will monitor chemistry. (6) DVT prophylaxis Current Visit: Yes Status: Acute Plan to address problem: Patient placed on sequential compression device. (7) Full code status Current Visit: Yes Status: Acute 05/05/2020 -Patient was transfused 2 units of blood and posttransfusion hemoglobin is 9.2, patient denied dark stool after admission. Patient was seen by GI and started on PPI -Acute pancreatitis, will continue pain control, bowel rest, IV fluids and supportive care. Patient's abdominal pain subsided and patient states he is hungry. Going to start him on full liquid diet and then advance as tolerated. Acute pancreatitis resolved, patient tolerated regular diet, no abdominal pain. Patient's hemoglobin 9.6 this morning and stable, no further dark stool. GI evaluated the patient and stated will follow the patient in the office. Patient extensively counseled about cessation of drinking alcohol. Patient was counseled about cessation of drinking alcohol. Patient was given appropriate medication scripts at the time of discharge. Patient counseled about using of NSAIDs. Patient made an appointment with GI as an outpatient. Disposition: TO HOME OR SELFCARE Time spent for discharge: 32 minutes - Discharge Diagnoses (1) Anemia Status: Acute Qualifiers: Anemia type: unspecified type Qualified Code(s): D64.9 - Anemia, unspecified (2) GI bleed Status: Acute Qualifiers: GI bleed type/associated pathology: melena Qualified Code(s): K92.1 - Melena (3) Gastritis Status: Acute Qualifiers: Gastritis type: alcoholic Chronicity: acute Gastritis bleeding: with bleeding Qualified Code(s): K29.21 - Alcoholic gastritis with bleeding (4) Hypokalemia Status: Acute (5) Hypomagnesemia Status: Acute (6) Pancreatitis Status: Acute Qualifiers: Chronicity: acute Pancreatitis type: alcohol induced Acute pancreatitis complication: unspecified Qualified Code(s): K85.20 - Alcohol induced acute pancreatitis without necrosis or infection Core Measure Documentation - Palliative Care Palliative Care/ Comfort Measures: Not Applicable - Core Measures Any of the following diagnoses?: none Exam - Physical Exam Narrative exam: Not in cardiopulmonary distress. The patient appeared well nourished and normally developed. Vital signs as documented. Head exam is unremarkable. No scleral icterus . Neck is without jugular venous distension, thyromegaly, or carotid bruits. Lungs are clear to auscultation. Cardiac exam reveals regular rate and Rhythm. Abdominal exam non tender. Extremities are nonedematous and both femoral and pedal pulses are normal. 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 No focal weakness. - Constitutional Vitals: Temp Pulse Resp BP Pulse Ox 98.2 F 73 18 163/101 99 05/06/20 07:45 05/06/20 10:08 05/06/20 07:45 05/06/20 10:08 05/06/20 07:45 Plan Activity: no restrictions Weight Bearing Status: Full Weight Bearing Diet: regular Follow up with: PRIMARY CARE, [Primary Care Provider] - 7 Days CHAR HURTADO MD [Staff Physician] - 7 Days Prescriptions: Acetaminophen [Acetaminophen TAB] 650 mg PO Q4H PRN #20 tablet PRN Reason: Pain MILD(1-3)/Fever >100.5/FREITAS Folic Acid 1 mg PO DAILY #30 tablet Potassium Chloride [K-Dur] 20 meq PO BID #10 tab Multivitamin 1 each PO DAILY #30 tablet HYDROcodone/APAP 7.5-325 [[place] 7.5-325 mg TAB] 1 each PO Q4H PRN #14 tablet PRN Reason: Pain, Moderate (4-6) Pantoprazole [Protonix TAB] 40 mg PO BIDAC #60 tablet Thiamine [Vitamin B-1] 100 mg PO QDAY #30 tablet Ondansetron [Zofran ODT TAB] 8 mg PO Q12HR #14 tab.scar
[2020-05-06] MEDS ORDERED: PANTOPRAZOLE 40 MG TAB PO SCH (16:30)
== END 2020-05-06 12:34 | disposition home or self-care (01) | DRG 438 ==
LOC: ED 15:01 → OBSVTOIN 23:38 → 3B-SURG 23:38
PROVIDERS: ADMIT Internal Medicine Geriatric Medicine; ATTEND Internal Medicine
PROC: 30233N1 Transfusion of Nonautologous Red Blood Cells into Peripheral Vein, Percutaneous Approach (ICD-10-PCS; principal; 2020-05-04)
DX: K85.20 Alcohol induced acute pancreatitis without necrosis or infection (principal); K29.21 Alcoholic gastritis with bleeding; E87.6 Hypokalemia; E83.42 Hypomagnesemia; D64.9 Anemia, unspecified; F17.210 Nicotine dependence, cigarettes, uncomplicated; F10.10 Alcohol abuse, uncomplicated; Y90.9 Presence of alcohol in blood, level not specified
CPT/HCPCS: 36415; 71045; 74177; 80048; 80076; 83690; 83735; 84100; 84484; 85007; 85025; 85610; 86850; 86900; 86901; 86920; 93005; 96361; 96374; 96375; G0378; C9113; J1170; J2060; J3411; J3475; J3480; J7030; J7040; P9016; Q9967

== ENCOUNTER 2020-05-07 14:31 | Emergency (ER) | payer SELFPAY | END 2020-05-07 16:48 | disposition left against medical advice (07) | LOC: ED 14:31 | DX: R11.10 Vomiting, unspecified (principal); Z53.21 Procedure and treatment not carried out due to patient leaving prior to being seen by health care provider ==

== ENCOUNTER 2020-05-19 20:31 | Inpatient (IN) | payer OTHER ==
[2020-05-19 23:40] LABS: Basophils % (Auto) 0.4 % (0.0-1.8); Eosinophils # (Auto) 0.1 K/mm3 (0.0-0.4); Eosinophils % (Auto) 0.8 % (0.0-4.3); Hematocrit 32.5 % (35.5-45.6); Hemoglobin 10.9 gm/dl (11.8-15.2); Lymphocytes # (Auto) 1.3 K/mm3 (1.2-5.4); Lymphocytes % (Auto) 17.4 % (13.4-35.0); Mean Corpuscular HGB Conc 34 % (32-34); Mean Corpuscular Volume 94 fl (84-94); Monocytes # (Auto) 0.3 K/mm3 (0.0-0.8); Monocytes % (Auto) 4.5 % (0.0-7.3); Platelet Count 101 K/mm3 (140-440); Red Blood Count 3.44 M/mm3 (3.65-5.03); Red Cell Distribution Width 16.2 % (13.2-15.2)
[2020-05-19 23:59] LABS: Alanine Aminotransferase 56 units/L (7-56); Albumin 3.8 g/dL (3.9-5); BUN/Creatinine Ratio 8; Blood Urea Nitrogen 4 mg/dL (9-20); Calcium 8.8 mg/dL (8.4-10.2); Hemolysis Index 2
[2020-05-20 03:18] LABS: Bacteria,Urine 1+ /HPF (Negative); Bilirubin,Urine SM (Negative); Blood,Urine SM (Negative); Color,Urine Amber (Yellow); Mucus,Urine 3+ /HPF
[2020-05-20 03:27] LABS: Protein,Urine >500 mg/dL (Negative)
[2020-05-20 03:49] LABS: Ictotest,Urine Positive (Negative)
[2020-05-20] MEDS ORDERED: LORazepam 2 MG/ML VIAL IV PRN ×3 (06:04)
[2020-05-20] MEDS ORDERED: PANTOPRAZOLE 40 MG INJ IV ONE (06:26)
[2020-05-20] MEDS ORDERED: MAGNESIUM SULFATE 2 GM/50 ML BAG IV ONE (06:26)
[2020-05-20] MEDS ORDERED: ONDANSETRON 4 MG/2 ML INJ IV ONE ×2 (06:26→10:17)
[2020-05-20] MEDS ORDERED: MORPHINE 2 MG/1 ML INJ IV ONE ×2 (06:26→10:17)
[2020-05-20] MEDS ORDERED: LORazepam 2 MG/ML VIAL IV ONE (06:26)
[2020-05-20] MEDS ORDERED: SODIUM CHLORIDE 0.9% 1000 ML 1,000 ML IV ONE ×2 (06:26→08:16)
[2020-05-20] MEDS ORDERED: POTASSIUM CHLORIDE ER 20 MEQ TAB PO ONE (06:27)
--- NOTE | 2020-05-20 06:29 | Emergency Department Report ---
ED General Adult HPI - General Chief complaint: Abdominal Pain Stated complaint: ABD PAIN Time Seen by Provider: 05/20/20 06:15 Source: patient Mode of arrival: Ambulatory Limitations: No Limitations - History of Present Illness Initial comments: This is a 40-year-old alcoholic male appearing in this emergency department under apparently similar circumstances from his recent hospitalization approximately 2 weeks ago: 40-year-old -[place] male with known history of alcohol abuse and pancreatitis presenting to the emergency room today complaining of abdominal pain, shortness of breath and chest discomfort. It was said to a status earlier today and abdominal pain is said to be more in the epigastric region and radiating towards the chest. Pain is said to be 10/10 in severity. Pain is worse on movement and improves while resting. Patient denies any fever or chills, no headache or dizziness, no sick contacts or recent travel, no contact with anyone with COVID-19, denies any diarrhea. He has had some nausea and vomiting and states his abdomen feels bloated. Patient drinks alcohol almost on a daily basis and last alcohol intake was last night. He also smokes about half a pack was cigarette on a daily basis. Work-up in the emergency room today reveals elevated lipase on the lab test, CT of the abdomen and pelvis reveals findings consistent with pancreatitis. Patient being admitted for acute pancreatitis. (1) Pancreatitis Current Visit: Yes Status: Acute Qualifiers: Chronicity: acute Pancreatitis type: alcohol induced Acute pancreatitis complication: unspecified Qualified Code(s): K85.20 - Alcohol induced acute pancreatitis without necrosis or infection Plan to address problem: Patient made n.p.o. and placed on IV fluid and IV analgesic medication. (2) Abdominal pain Current Visit: Yes Status: Acute Qualifiers: Abdominal location: generalized Qualified Code(s): R10.84 - Generalized abdominal pain Plan to address problem: Probably secondary to the pancreatitis. We will continue on analgesic medication. (3) Anemia Current Visit: Yes Status: Acute Qualifiers: Anemia type: unspecified type Qualified Code(s): D64.9 - Anemia, unspecified Plan to address problem: Possibly chronic. Will monitor CBC. Patient is Hemoccult positive and will place a consult to gastroenterology for evaluation. 05/04/20 -Patient's hemoglobin dropped down to 6.2 and I ordered 2 units of packed RBC for transfusion (4) Hypokalemia Current Visit: Yes Status: Acute Plan to address problem: Potassium will be repleted and will monitor chemistry. (5) Hypomagnesemia Current Visit: Yes Status: Acute Plan to address problem: Magnesium will be repleted and will monitor chemistry. (6) DVT prophylaxis Current Visit: Yes Status: Acute Plan to address problem: Patient placed on sequential compression device. (7) Full code status Current Visit: Yes Status: Acute 05/05/2020 -Patient was transfused 2 units of blood and posttransfusion hemoglobin is 9.2, patient denied dark stool after admission. Patient was seen by GI and started on PPI -Acute pancreatitis, will continue pain control, bowel rest, IV fluids and supportive care. Patient's abdominal pain subsided and patient states he is hungry. Going to start him on full liquid diet and then advance as tolerated. Acute pancreatitis resolved, patient tolerated regular diet, no abdominal pain. Patient's hemoglobin 9.6 this morning and stable, no further dark stool. GI evaluated the patient and stated will follow the patient in the office. Patient extensively counseled about cessation of drinking alcohol. Patient was counseled about cessation of drinking alcohol. Patient was given appropriate medication scripts at the time of discharge. Patient counseled about using of N SAIDs. Patient made an appointment with GI as an outpatient. Disposition: TO HOME OR SELFCARE Time spent for discharge: 32 minutes - Discharge Diagnoses (1) Anemia Status: Acute Qualifiers: Anemia type: unspecified type Qualified Code(s): D64.9 - Anemia, unspecified (2) GI bleed Status: Acute Qualifiers: GI bleed type/associated pathology: melena Qualified Code(s): K92.1 - Melena (3) Gastritis Status: Acute Qualifiers: Gastritis type: alcoholic Chronicity: acute Gastritis bleeding: with bleeding Qualified Code(s): K29.21 - Alcoholic gastritis with bleeding (4) Hypokalemia Status: Acute (5) Hypomagnesemia Status: Acute (6) Pancreatitis Status: Acute Qualifiers: Chronicity: acute Pancreatitis type: alcohol induced Acute pancreatitis complication: unspecified Qualified Code(s): K85.20 - Alcohol induced acute pancreatitis without necrosis or infection This time the patient states that he stopped drinking 2 days ago. He developed abdominal pain at approximately the same time. He gives it a gradual onset both right upper and lower quadrant without radiation to the back or elsewhere. He did not measure his temperature but thinks he might of had some chills. The pain is sharp and constant. He states that his stool is dark again but has not been vomiting. He states he has had pain like this before. He is not currently nauseated. However, I do not think he is tolerating p.o. -: Gradual, days(s) Location: abdomen Radiation: non-radiation Quality: sharp Consistency: constant Improves with: none Worsens with: other (Unable to eat) Associated Symptoms: denies other symptoms (As per HPI) - Related Data Previous Rx's Medication Instructions Recorded Last Taken Type Acetaminophen [Acetaminophen TAB] 650 mg PO Q4H PRN #20 tablet 05/06/20 Unknown Rx Folic Acid 1 mg PO DAILY #30 tablet 05/06/20 Unknown Rx HYDROcodone/APAP 7.5-325 [[place] 1 each PO Q4H PRN #14 tablet 05/06/20 Unknown Rx 7.5-325 mg TAB] Multivitamin 1 each PO DAILY #30 tablet 05/06/20 Unknown Rx Ondansetron [Zofran ODT TAB] 8 mg PO Q12HR #14 tab.rapdis 05/06/20 Unknown Rx Pantoprazole [Protonix TAB] 40 mg PO BIDAC #60 tablet 05/06/20 Unknown Rx Potassium Chloride [K-Dur] 20 meq PO BID #10 tab 05/06/20 Unknown Rx Thiamine [Vitamin B-1] 100 mg PO QDAY #30 tablet 05/06/20 Unknown Rx Allergies Allergy/AdvReac Type Severity Reaction Status Date / Time No Known Allergies Allergy Unverified 04/24/20 12:30 ED Review of Systems ROS: Stated complaint: ABD PAIN Other details as noted in HPI Constitutional: weakness. denies: chills, fever Eyes: denies: eye pain, vision change ENT: denies: ear pain, throat pain Respiratory: denies: cough, shortness of breath Cardiovascular: denies: chest pain, palpitations Endocrine: no symptoms reported Gastrointestinal: abdominal pain, melena. denies: nausea, vomiting Genitourinary: denies: urgency, dysuria Musculoskeletal: denies: back pain, arthralgia Skin: denies: rash, lesions Neurological: denies: headache, weakness, paresthesias Psychiatric: denies: anxiety, depression Hematological/Lymphatic: denies: easy bleeding, easy bruising ED Past Medical Hx - Past Medical History Previous Medical History?: Yes Hx Hypertension: Yes Hx Congestive Heart Failure: No Hx Diabetes: No Hx Psychiatric Treatment: Yes (alcohol abuse) Hx Asthma: No Hx COPD: No Hx HIV: No Additional medical history: Pancreatitis - Surgical History Hx Appendectomy: Yes - Social History Smoking Status: Current Every Day Smoker Substance Use Type: None - Medications Home Medications: Home Medications Medication Instructions Recorded Confirmed Last Taken Type Acetaminophen [Acetaminophen TAB] 650 mg PO Q4H PRN #20 tablet 05/06/20 Unknown Rx Folic Acid 1 mg PO DAILY #30 tablet 05/06/20 Unknown Rx HYDROcodone/APAP 7.5-325 [[place] 1 each PO Q4H PRN #14 tablet 05/06/20 Unknown Rx 7.5-325 mg TAB] Multivitamin 1 each PO DAILY #30 tablet 05/06/20 Unknown Rx Ondansetron [Zofran ODT TAB] 8 mg PO Q12HR #14 tab.rapdis 05/06/20 Unknown Rx Pantoprazole [Protonix TAB] 40 mg PO BIDAC #60 tablet 05/06/20 Unknown Rx Potassium Chloride [K-Dur] 20 meq PO BID #10 tab 05/06/20 Unknown Rx Thiamine [Vitamin B-1] 100 mg PO QDAY #30 tablet 05/06/20 Unknown Rx ED Physical Exam - General Limitations: No Limitations General appearance: alert, in no apparent distress - Head Head exam: Present: atraumatic, normocephalic - Eye Eye exam: Present: normal appearance. Absent: scleral icterus - ENT ENT exam: Present: mucous membranes dry - Neck Neck exam: Present: normal inspection. Absent: meningismus - Respiratory Respiratory exam: Present: normal lung sounds bilaterally. Absent: respiratory distress - Cardiovascular Cardiovascular Exam: Present: normal rhythm, tachycardia. Absent: systolic murmur, diastolic murmur, rubs, gallop - GI/Abdominal GI/Abdominal exam: Present: soft, distended, tenderness (Right lower and upper q uadrant), guarding (Voluntary), normal bowel sounds, organomegaly (Possibly hepatomegaly). Absent: rebound, rigid - Rectal Rectal exam: Present: deferred - Extremities Exam Extremities exam: Present: normal inspection - Back Exam Back exam: Present: normal inspection. Absent: CVA tenderness (R), CVA tenderness (L) - Neurological Exam Neurological exam: Present: alert, oriented X3, CN II-XII intact - Psychiatric Psychiatric exam: Present: normal mood, flat affect - Skin Skin exam: Present: warm, dry, intact, normal color. Absent: rash ED Course Vital Signs 05/19/20 05/20/20 05/20/20 22:16 06:00 06:02 Temperature 99.0 F 99.6 F Pulse Rate 140 H 141 H 144 H Respiratory 18 18 Rate Blood Pressure 145/88 Blood Pressure 166/103 [Left] O2 Sat by Pulse 96 100 100 Oximetry 05/20/20 05/20/20 05/20/20 06:16 07:00 07:16 Temperature Pulse Rate 149 H 151 H 135 H Respiratory 18 18 16 Rate Blood Pressure 166/103 170/95 151/90 Blood Pressure [Left] O2 Sat by Pulse 94 93 97 Oximetry 05/20/20 05/20/20 05/20/20 07:30 07:45 07:48 Temperature 100.3 F H Pulse Rate 128 H 139 H 133 H Respiratory 17 20 20 Rate Blood Pressure 134/83 136/76 Blood Pressure 152/87 [Left] O2 Sat by Pulse 97 96 100 Oximetry 05/20/20 05/20/20 05/20/20 08:15 08:30 08:45 Temperature Pulse Rate 121 H 120 H 122 H Respiratory 15 15 16 Rate Blood Pressure 150/85 145/83 136/82 Blood Pressure [Left] O2 Sat by Pulse 96 97 96 Oximetry 05/20/20 05/20/20 05/20/20 09:00 09:16 09:30 Temperature Pulse Rate 144 H 117 H 116 H Respiratory 20 16 16 Rate Blood Pressure 165/88 165/88 155/90 Blood Pressure [Left] O2 Sat by Pulse 92 98 97 Oximetry - Reevaluation(s) Reevaluation #1: Patient given IV fluids, Ativan, morphine, antibiotic coverage with Zosyn and metronidazole. Magnesium and potassium are being supplemented. His CT showed swelling of the transverse colon consistent with colitis. He has chronic changes in his pancreas and spleen. He is admitted in stable condition to the hospitalist service by Dr. Florez. I will defer further consultation as an GI or surgery to hospitalist discretion. 05/20/20 09:34 05/20/20 09:35 ED Medical Decision Making - Lab Data Result diagrams: 05/19/20 22:59 05/19/20 22:59 Laboratory Results - last 24 hr 05/19/20 05/19/20 05/20/20 22:59 22:59 Unknown WBC 7.5 RBC 3.44 L Hgb 10.9 L Hct 32.5 L MCV 94 MCH 32 MCHC 34 RDW 16.2 H Plt Count 101 L Lymph % (Auto) 17.4 [place] % (Auto) 4.5 Eos % (Auto) 0.8 Baso % (Auto) 0.4 Lymph # (Auto) 1.3 [place] # (Auto) 0.3 Eos # (Auto) 0.1 Baso # (Auto) 0.0 Seg Neutrophils % 76.9 H Seg Neutrophils # 5.8 Sodium 141 Potassium 2.7 L* Chloride 90.4 L Carbon Dioxide 28 Anion Gap 25 BUN 4 L Creatinine 0.5 L Estimated GFR > 60 BUN/Creatinine Ratio 8 Glucose 144 H Calcium 8.8 Total Bilirubin 1.30 H AST 173 H ALT 56 Alkaline Phosphatase 237 H Total Protein 7.3 Albumin 3.8 L Albumin/Globulin Ratio 1.1 Lipase 58 Urine Color Cherry Urine Turbidity Cloudy Urine pH 6.0 Ur Specific Ramer 1.022 Urine Protein >500 Urine Glucose (UA) Neg Urine Ketones Neg Urine Blood Sm Urine Nitrite Neg Urine Bilirubin Sm Urine Ictotest Positive Urine Urobilinogen 4.0 Ur Leukocyte Esterase Neg Urine WBC (Auto) 7.0 H Urine RBC (Auto) 4.0 U Epithel Cells (Auto) 3.0 Urine Bacteria (Auto) 1+ Urine Mucus 3+ - EKG Data -: EKG Interpreted by Ne EKG shows normal: sinus rhythm Rate: tachycardia - EKG Data Interpretation: other (Diffuse ST depression and U waves are consistent with hypokalemia, sinus tachycardia, suggests LVH) - Radiology Data IMPRESSION: 1. Interval development of concentric mural thickening involving the transverse colon may represent a developing mild infectious/inflammatory colitis. 2. Interval resolution of the previously noted mild peripancreatic fat stranding. 3. Diffuse hepatic steatosis is similar. 4. Previously noted splenic lesion is stable. 5. Prior appendectomy. Chest x-ray no acute process Critical Care Time: Yes Critical care time in (mins) excluding proc time.: 55 Critical care attestation.: If time is entered above; I have spent that time in minutes in the direct care of this critically ill patient, excluding procedure time. ED Disposition Clinical Impression: Hypomagnesemia, Hypokalemia, Colitis, Elevated lactic acid level Anemia Qualifiers: Anemia type: unspecified type Qualified Code(s): D64.9 - Anemia, unspecified Alcohol withdrawal Qualifiers: Complication of substance-induced condition: uncomplicated Qualified Code(s): F10.230 - Alcohol dependence with withdrawal, uncomplicated Disposition: DC-09 OP ADMIT IP TO THIS HOSP Is pt being admited?: Yes Does the pt Need Aspirin: No Condition: Stable Referrals: KRISS MENDEZ MD [Primary Care Provider] - 3-5 Days Time of Disposition: 09:39
--- NOTE | 2020-05-20 06:42 | Cat Scan Report ---
Examination: CT of the head without contrast Clinical information: Fall. Trauma. Comparison: None Technical: Multiple axial CT images of the head were obtained without intravenous contrast. Sagittal and coronal reformats were obtained. All CTs at this facility utilize dose reduction techniques inc luding automated exposure control, iterative reconstruction and weight based dosing when appropriate to reduce patient radiation dose to as low as reasonable achievable. Findings: INTRACRANIAL CONTENTS: There is no CT evidence of acute intracranial hemorrhage or large territorial infarct. The ventricular system appears normal in size. No extra-axial fluid collections are identifi ed. ORBITS: The bilateral orbits and globes appear normal SKULL: No acute calvarial fracture is identified. PARANASAL SINUSES / MASTOID AIR CELLS: Paranasal sinuses and mastoid air cells appear clear. Impression: 1. No CT evidence of acute intracranial process. Signer Name: Kathe Shaffer MD Signed: 05/20/2020 6:37 AM Workstation Name: [id number]
--- NOTE | 2020-05-20 06:47 | XRay Report ---
CHEST 1 VIEW, 05/20/2020 6:24 AM CLINICAL INFORMATION/INDICATION: Hypertension COMPARISON: Chest radiograph, 05/03/2020 FINDINGS: SUPPORT DEVICES: None. HEART: The cardiac silhouette is normal in size. LUNGS/PLEURA: The lungs are clear of focal airspace disease or significant pleural effusion. ADDITIONAL FINDINGS: No additional acute findings. IMPRESSION: 1. No evidence of acute cardiopulmonary process. Signer Name: Kathe Shaffer MD Signed: 05/20/2020 6:42 AM Workstation Name: [id number]
[2020-05-20] MEDS: POTASSIUM CHLORIDE 10 MEQ 10 MEQ/100 ML BAG IV SCH ×4 (07:01→12:35)
[2020-05-20] MEDS ORDERED: PIPERACILLIN/TAZOBACTAM 3.375 3.375 GM/50 ML BAG IV ONE (07:03)
[2020-05-20 07:25] LABS: Partial Thromboplastin Time 27.5 Sec. (24.2-36.6)
[2020-05-20 07:34] LABS: Creatine Kinase MB 1.2 ng/mL (0.0-4.0)
--- NOTE | 2020-05-20 08:26 | Cat Scan Report ---
CT ABDOMEN AND PELVIS WITH CONTRAST INDICATION / CLINICAL INFORMATION: MAIN. Right-sided abdominal pain for 2 days. TECHNIQUE: Axial CT images were obtained through the abdomen and pelvis after IV contrast. All CT scans at this location are performed using CT dose reduction for ALARA by means of automated exposure control. COMPARISON: 05/03/2020 FINDINGS: LOWER CHEST: No significant abnormality. LIVER: Diffuse hepatic steatosis is unchanged from prior exam. No focal hepatic lesions. GALLBLADDER: No significant abnormality. BILE DUCTS: No significant abnormality. PANCREAS: Interval resolution of the previously noted mild peripancreatic fat stranding. No focal ayers creas likely lesions. SPLEEN: Previously noted hypoattenuating lesion within the superior aspect of the medial spleen is st able since prior exam. ADRENALS: No significant abnormality. RIGHT KIDNEY / URETER: No significant abnormality. LEFT KIDNEY / URETER: No significant abnormality. STOMACH / SMALL BOWEL: No significant abnormality. No mechanical bowel obstruction. COLON: Mild concentric mural thickening of the transverse colon from the mid abdomen extending to the splenic flexure. No significant pericolonic fat stranding. APPENDIX: Prior appendectomy. PERITONEUM: No free fluid. No free air. No fluid collection. LYMPH NODES: No significant adenopathy. AORTA / ARTERIES: Moderate atherosclerotic calcification without acute abnormality. IVC / VEINS: No significant abnormality. URINARY BLADDER: No significant abnormality. REPRODUCTIVE ORGANS: No significant abnormality. ADDITIONAL FINDINGS: None. SKELETAL SYSTEM: Mild multilevel degenerative changes are noted of the spine. No aggressive osseous l esions. IMPRESSION: 1. Interval development of concentric mural thickening involving the transverse colon may represent a developing mild infectious/inflammatory colitis. 2. Interval resolution of the previously noted mild peripancreatic fat stranding. 3. Diffuse hepatic steatosis is similar. 4. Previously noted splenic lesion is stable. 5. Prior appendectomy. Signer Name: Weston Jung MD Signed: 05/20/2020 8:22 AM Workstation Name: [id number]
[2020-05-20] MEDS ORDERED: metroNIDAZOLE/NS 500 MG/100 ML 500 MG/100 ML BAG IV ONE (09:10)
[2020-05-20 09:40] LABS: Amphetamine Screen,Urine Negative; Benzodiazepines Screen,Urine Negative; Cannabinoid Screen,Urine Negative; Cocaine Screen,Urine Negative; Methadone Screen,Urine Negative
[2020-05-20 09:58] LABS: Opiate Screen,Urine Positive
[2020-05-20 10:05] LABS: Bilirubin,Urine NEG (Negative); Blood,Urine NEG (Negative); Color,Urine Amber (Yellow); Hyaline Casts,Urine 5 /LPF
[2020-05-20 10:06] LABS: Protein,Urine >500 mg/dL (Negative)
--- NOTE | 2020-05-20 11:45 | History and Physical Report ---
History of Present Illness Date of examination: 05/20/20 Date of admission: 05/20/20 10:35 Chief complaint: abd pain History of present illness: 40-year-old -[place] male presents to the emergency department with complaints of abdominal pain. Patient had previous hospitalization at our facility April of this year and diagnosed with pancreatitis. Patient reports EtOH abuse and drinks approximately 1 pint of liquor daily. Patient reports nausea and vomiting x1 this morning. Patient denies any chest pain or shortness of breath. Patient denies any fever chills. No cough or cold-like symptoms. No headache or visual disturbances. Patient denies any hematemesis, hematochezia/melena. Past History Past Medical History: other (Pancreatitis) Past Surgical History: No surgical history Social history: no significant social history Family history: no significant family history Medications and Allergies Allergies Allergy/AdvReac Type Severity Reaction Status Date / Time No Known Allergies Allergy Unverified 04/24/20 12:30 Home Medications Medication Instructions Recorded Confirmed Last Taken Type Acetaminophen [Acetaminophen TAB] 650 mg PO Q4H PRN #20 tablet 05/06/20 Unknown Rx Folic Acid 1 mg PO DAILY #30 tablet 05/06/20 Unknown Rx HYDROcodone/APAP 7.5-325 [[place] 1 each PO Q4H PRN #14 tablet 05/06/20 Unknown Rx 7.5-325 mg TAB] Multivitamin 1 each PO DAILY #30 tablet 05/06/20 Unknown Rx Ondansetron [Zofran ODT TAB] 8 mg PO Q12HR #14 tab.rapdis 05/06/20 Unknown Rx Pantoprazole [Protonix TAB] 40 mg PO BIDAC #60 tablet 05/06/20 Unknown Rx Potassium Chloride [K-Dur] 20 meq PO BID #10 tab 05/06/20 Unknown Rx Thiamine [Vitamin B-1] 100 mg PO QDAY #30 tablet 05/06/20 Unknown Rx Review of Systems All systems: negative Exam - Constitutional Vitals: Temp Pulse Resp BP Pulse Ox 100.3 F H 113 H 15 147/87 96 05/20/20 07:48 05/20/20 10:46 05/20/20 10:46 05/20/20 10:46 05/20/20 10:46 General appearance: Present: no acute distress, well-nourished - EENT Eyes: Present: PERRL ENT: hearing intact, clear oral mucosa - Neck Neck: Present: supple, normal ROM - Respiratory Respiratory effort: normal Respiratory: bilateral: CTA - Cardiovascular Heart Sounds: Present: S1 & S2. Absent: rub, click - Extremities Extremities: pulses symmetrical, No edema Peripheral Pulses: within normal limits - Abdominal General gastrointestinal: Present: soft, non-tender, non-distended, normal bowel sounds Male genitourinary: Present: normal - Integumentary Integumentary: Present: clear, warm, dry - Musculoskeletal Musculoskeletal: gait normal, strength equal bilaterally - Psychiatric Psychiatric: appropriate mood/affect, intact judgment & insight - Neurologic Neurologic: CNII-XII intact, moves all extremities HEART Score - HEART Score Troponin: Troponin T < 0.010 ng/mL (0.00-0.029) 05/20/20 06:43 Results - Labs CBC & Chem 7: 05/19/20 22:59 05/19/20 22:59 Labs: Laboratory Last Values WBC 7.5 K/mm3 (4.5-11.0) 05/19/20 22:59 RBC 3.44 M/mm3 (3.65-5.03) L 05/19/20 22:59 Hgb 10.9 gm/dl (11.8-15.2) L 05/19/20 22:59 Hct 32.5 % (35.5-45.6) L 05/19/20 22:59 MCV 94 fl (84-94) 05/19/20 22:59 MCH 32 pg (28-32) 05/19/20 22:59 MCHC 34 % (32-34) 05/19/20 22:59 RDW 16.2 % (13.2-15.2) H 05/19/20 22:59 Plt Count 101 K/mm3 (140-440) L 05/19/20 22:59 Lymph % (Auto) 17.4 % (13.4-35.0) 05/19/20 22:59 [place] % (Auto) 4.5 % (0.0-7.3) 05/19/20 22:59 Eos % (Auto) 0.8 % (0.0-4.3) 05/19/20 22:59 Baso % (Auto) 0.4 % (0.0-1.8) 05/19/20 22:59 Lymph # (Auto) 1.3 K/mm3 (1.2-5.4) 05/19/20 22:59 [place] # (Auto) 0.3 K/mm3 (0.0-0.8) 05/19/20 22:59 Eos # (Auto) 0.1 K/mm3 (0.0-0.4) 05/19/20 22:59 Baso # (Auto) 0.0 K/mm3 (0.0-0.1) 05/19/20 22:59 Seg Neutrophils % 76.9 % (40.0-70.0) H 05/19/20 22:59 Seg Neutrophils # 5.8 K/mm3 (1.8-7.7) 05/19/20 22:59 PT 13.0 Sec. (12.2-14.9) 05/20/20 06:43 INR 1.00 (0.87-1.13) 05/20/20 06:43 APTT 27.5 Sec. (24.2-36.6) 05/20/20 06:43 Sodium 141 mmol/L (137-145) 05/19/20 22:59 Potassium 2.7 mmol/L (3.6-5.0) L* 05/19/20 22:59 Chloride 90.4 mmol/L (98-107) L 05/19/20 22:59 Carbon Dioxide 28 mmol/L (22-30) 05/19/20 22:59 Anion Gap 25 mmol/L 05/19/20 22:59 BUN 4 mg/dL (9-20) L 05/19/20 22:59 Creatinine 0.5 mg/dL (0.8-1.3) L 05/19/20 22:59 Estimated GFR > 60 ml/min 05/19/20 22:59 BUN/Creatinine Ratio 8 % 05/19/20 22:59 Glucose 144 mg/dL (75-100) H 05/19/20 22:59 Lactic Acid 3.20 mmol/L (0.7-2.0) H* 05/20/20 07:46 Calcium 8.8 mg/dL (8.4-10.2) 05/19/20 22:59 Magnesium 0.70 mg/dL (1.7-2.3) L* 05/20/20 06:43 Total Bilirubin 1.30 mg/dL (0.1-1.2) H 05/19/20 22:59 AST 173 units/L (5-40) H 05/19/20 22:59 ALT 56 units/L (7-56) 05/19/20 22:59 Alkaline Phosphatase 237 units/L (35-129) H 05/19/20 22:59 Total Creatine Kinase 215 units/L (55-170) H 05/20/20 06:43 CK-MB (CK-2) 1.2 ng/mL (0.0-4.0) 05/20/20 06:43 CK-MB (CK-2) Rel Index 0.5 (0-4) 05/20/20 06:43 Troponin T < 0.010 ng/mL (0.00-0.029) 05/20/20 06:43 NT-Pro-B Natriuret Pep 117.3 pg/mL (0-450) 05/20/20 06:43 Total Protein 7.3 g/dL (6.3-8.2) 05/19/20 22:59 Albumin 3.8 g/dL (3.9-5) L 05/19/20 22:59 Albumin/Globulin Ratio 1.1 % 05/19/20 22:59 Lipase 58 units/L (13-60) 05/19/20 22:59 Urine Color Cherry (Yellow) 05/20/20 Unknown Urine Color [place] (Yellow) 05/20/20 Unknown Urine Turbidity Clear (Clear) 05/20/20 Unknown Urine Turbidity Cloudy (Clear) 05/20/20 Unknown Urine pH 6.0 (5.0-7.0) 05/20/20 Unknown Urine pH 7.0 (5.0-7.0) 05/20/20 Unknown Ur Specific [place] 1.022 (1.003-1.030) 05/20/20 Unknown Ur Specific [place] 1.055 (1.003-1.030) H 05/20/20 Unknown Urine Protein >500 mg/dL (Negative) 05/20/20 Unknown Urine Protein >500 mg/dL (Negative) 05/20/20 Unknown Urine Glucose (UA) Neg mg/dL (Negative) 05/20/20 Unknown Urine Glucose (UA) Neg mg/dL (Negative) 05/20/20 Unknown Urine Ketones Neg mg/dL (Negative) 05/20/20 Unknown Urine Ketones Neg mg/dL (Negative) 05/20/20 Unknown Urine Blood Neg (Negative) 05/20/20 Unknown Urine Blood Sm (Negative) 05/20/20 Unknown Urine Nitrite Neg (Negative) 05/20/20 Unknown Urine Nitrite Neg (Negative) 05/20/20 Unknown Urine Bilirubin Neg (Negative) 05/20/20 Unknown Urine Bilirubin Sm (Negative) 05/20/20 Unknown Urine Ictotest Positive (Negative) 05/20/20 Unknown Urine Urobilinogen 4.0 mg/dL (<2.0) 05/20/20 Unknown Urine Urobilinogen 4.0 mg/dL (<2.0) 05/20/20 Unknown Ur Leukocyte Esterase Neg (Negative) 05/20/20 Unknown Ur Leukocyte Esterase Neg (Negative) 05/20/20 Unknown Urine WBC (Auto) 2.0 /HPF (0.0-6.0) 05/20/20 Unknown Urine WBC (Auto) 7.0 /HPF (0.0-6.0) H 05/20/20 Unknown Urine RBC (Auto) 4.0 /HPF (0.0-6.0) 05/20/20 Unknown Urine RBC (Auto) 6.0 /HPF (0.0-6.0) 05/20/20 Unknown U Epithel Cells (Auto) 1.0 /HPF (0-13.0) 05/20/20 Unknown U Epithel Cells (Auto) 3.0 /HPF (0-13.0) 05/20/20 Unknown Urine Bacteria (Auto) 1+ /HPF (Negative) 05/20/20 Unknown Hyaline Casts 5 /LPF 05/20/20 Unknown Urine Mucus 3+ /HPF 05/20/20 Unknown Urine Opiates Screen Positive 05/20/20 Unknown Urine Methadone Screen Negative 05/20/20 Unknown Ur Barbiturates Screen Negative 05/20/20 Unknown Ur Phencyclidine Scrn Negative 05/20/20 Unknown Ur Amphetamines Screen Negative 05/20/20 Unknown U Benzodiazepines Scrn Negative 05/20/20 Unknown Urine Cocaine Screen Negative 05/20/20 Unknown U Marijuana (THC) Screen Negative 05/20/20 Unknown Drugs of Abuse Note Disclamer 05/20/20 Unknown Plasma/Serum Alcohol < 0.01 % (0-0.07) 05/20/20 06:43 Blood Type B POSITIVE 05/20/20 06:43 Antibody Screen Negative 05/20/20 06:43 Heard/IV: IV Catheter Type [Right Peripheral IV Antecubital] Assessment and Plan Assessment and plan: Acute pancreatitis. Etiology secondary to EtOH. Patient will be maintained on bowel rest and kept n.p.o. IV fluid hydration, pain control and supportive care. Serial lipase levels. Colitis. CT scan reveals interval development of concentric mural thickening involving the transverse colon that may represent a developing mild infectious/inflammatory colitis. Patient was started on empiric antibiotics of Levaquin daily. Check stool studies. Abdominal pain. Etiology secondary to above. Anemia. Etiology likely secondary to chronic blood loss from alcoholic gastritis. Patient with no overt bleeding. PPI daily. Monitor H&H and transfuse for hemoglobin less than 7. Hypokalemia. Replete potassium. Check magnesium. DVT prophylaxis. SCDs.
[2020-05-20] MEDS ORDERED: ONDANSETRON 4 MG/2 ML INJ IV PRN (11:50)
[2020-05-20] MEDS ORDERED: ACETAMINOPHEN 325 MG TAB PO PRN (11:50)
[2020-05-20] MEDS ORDERED: SODIUM CHLORIDE 0.9% 1000 ML 1,000 ML ONE (12:28)
[2020-05-20] MEDS: MORPHINE 2 MG/1 ML INJ IV PRN ×2 (16:18→20:29)
[2020-05-21] MEDS: MORPHINE 2 MG/1 ML INJ IV PRN ×6 (00:28→23:19)
[2020-05-21 06:15] LABS: Basophils % (Auto) 0.2 % (0.0-1.8); Eosinophils # (Auto) 0.1 K/mm3 (0.0-0.4); Eosinophils % (Auto) 1.1 % (0.0-4.3); Hematocrit 25.7 % (35.5-45.6); Hemoglobin 8.7 gm/dl (11.8-15.2); Mean Corpuscular HGB Conc 34 % (32-34); Mean Corpuscular Volume 94 fl (84-94); Monocytes # (Auto) 0.4 K/mm3 (0.0-0.8); Monocytes % (Auto) 5.1 % (0.0-7.3); Red Blood Count 2.73 M/mm3 (3.65-5.03); Red Cell Distribution Width 16.6 % (13.2-15.2)
[2020-05-21 06:18] LABS: Platelet Count 65 K/mm3 (140-440)
[2020-05-21 06:34] LABS: Blood Urea Nitrogen 2 mg/dL (9-20); Calcium 8.4 mg/dL (8.4-10.2); Hemolysis Index 3
[2020-05-21 06:39] LABS: BUN/Creatinine Ratio 4
[2020-05-21] MEDS ORDERED: POTASSIUM CHLORIDE ER 20 MEQ TAB PO NR ×2 (09:29→14:00)
--- NOTE | 2020-05-21 09:31 | Progress Note ---
Assessment and Plan Assessment and plan: Acute pancreatitis. Etiology secondary to EtOH. Patient will be maintained on bowel rest and kept n.p.o. IV fluid hydration, pain control and supportive care. Serial lipase levels. Colitis. CT scan reveals interval development of concentric mural thickening involving the transverse colon that may represent a developing mild infectious/inflammatory colitis. Patient was started on empiric antibiotics of Levaquin daily. Check stool studies. Abdominal pain. Etiology secondary to above. Anemia. Etiology likely secondary to chronic blood loss from alcoholic gastritis. Patient with no overt bleeding. PPI daily. Monitor H&H and transfuse for hemoglobin less than 7. Hypokalemia. Replete potassium. Check magnesium. DVT prophylaxis. SCDs. 05/21/2020. Patient with significant hypokalemia. Replete potassium IV and p.o. Check magnesium and replete as needed. Continue IV antibiotics of Levaquin and Flagyl for colitis. Lipase within normal limits. Follow stool studies. The patient has been counseled on the importance of alcohol cessation. History Interval history: Patient still complains of mid epigastric pain Hospitalist Physical - Constitutional Vitals: Temp Pulse Resp BP Pulse Ox 99.0 F 88 22 160/97 98 05/21/20 08:10 05/21/20 08:10 05/21/20 09:07 05/21/20 08:10 05/21/20 08:10 General appearance: Present: no acute distress, well-nourished - EENT Eyes: Present: PERRL, EOM intact ENT: hearing intact, clear oral mucosa, dentition normal - Neck Neck: Present: supple, normal ROM - Respiratory Respiratory effort: normal Respiratory: bilateral: CTA - Cardiovascular Rhythm: regular Heart Sounds: Present: S1 & S2. Absent: gallop, rub - Extremities Extremities: no ischemia, No edema, Full ROM - Abdominal General gastrointestinal: soft, non-tender, non-distended, normal bowel sounds - Integumentary Integumentary: Present: clear, warm, dry - Neurologic Neurologic: CNII-XII intact, moves all extremities HEART Score - HEART Score Troponin: Troponin T < 0.010 ng/mL (0.00-0.029) 05/20/20 06:43 Results - Labs CBC & Chem 7: 05/21/20 05:50 05/21/20 05:50 Labs: Laboratory Last Values WBC 8.6 K/mm3 (4.5-11.0) 05/21/20 05:50 RBC 2.73 M/mm3 (3.65-5.03) L 05/21/20 05:50 Hgb 8.7 gm/dl (11.8-15.2) L 05/21/20 05:50 Hct 25.7 % (35.5-45.6) L D 05/21/20 05:50 MCV 94 fl (84-94) 05/21/20 05:50 MCH 32 pg (28-32) 05/21/20 05:50 MCHC 34 % (32-34) 05/21/20 05:50 RDW 16.6 % (13.2-15.2) H 05/21/20 05:50 Plt Count 65 K/mm3 (140-440) L 05/21/20 05:50 Lymph % (Auto) 12.0 % (13.4-35.0) L 05/21/20 05:50 [place] % (Auto) 5.1 % (0.0-7.3) 05/21/20 05:50 Eos % (Auto) 1.1 % (0.0-4.3) 05/21/20 05:50 Baso % (Auto) 0.2 % (0.0-1.8) 05/21/20 05:50 Lymph # (Auto) 1.0 K/mm3 (1.2-5.4) L 05/21/20 05:50 [place] # (Auto) 0.4 K/mm3 (0.0-0.8) 05/21/20 05:50 Eos # (Auto) 0.1 K/mm3 (0.0-0.4) 05/21/20 05:50 Baso # (Auto) 0.0 K/mm3 (0.0-0.1) 05/21/20 05:50 Seg Neutrophils % 81.6 % (40.0-70.0) H 05/21/20 05:50 Seg Neutrophils # 7.0 K/mm3 (1.8-7.7) 05/21/20 05:50 PT 13.0 Sec. (12.2-14.9) 05/20/20 06:43 INR 1.00 (0.87-1.13) 05/20/20 06:43 APTT 27.5 Sec. (24.2-36.6) 05/20/20 06:43 Sodium 137 mmol/L (137-145) 05/21/20 05:50 Potassium 2.3 mmol/L (3.6-5.0) L* 05/21/20 05:50 Chloride 93.2 mmol/L (98-107) L 05/21/20 05:50 Carbon Dioxide 29 mmol/L (22-30) 05/21/20 05:50 Anion Gap 17 mmol/L 05/21/20 05:50 BUN 2 mg/dL (9-20) L 05/21/20 05:50 Creatinine 0.5 mg/dL (0.8-1.3) L 05/21/20 05:50 Estimated GFR > 60 ml/min 05/21/20 05:50 BUN/Creatinine Ratio 4 % 05/21/20 05:50 Glucose 94 mg/dL (75-100) 05/21/20 05:50 Lactic Acid 3.20 mmol/L (0.7-2.0) H* 05/20/20 07:46 Calcium 8.4 mg/dL (8.4-10.2) 05/21/20 05:50 Magnesium 0.70 mg/dL (1.7-2.3) L* 05/20/20 06:43 Total Bilirubin 1.30 mg/dL (0.1-1.2) H 05/19/20 22:59 AST 173 units/L (5-40) H 05/19/20 22:59 ALT 56 units/L (7-56) 05/19/20 22:59 Alkaline Phosphatase 237 units/L (35-129) H 05/19/20 22:59 Total Creatine Kinase 215 units/L (55-170) H 05/20/20 06:43 CK-MB (CK-2) 1.2 ng/mL (0.0-4.0) 05/20/20 06:43 CK-MB (CK-2) Rel Index 0.5 (0-4) 05/20/20 06:43 Troponin T < 0.010 ng/mL (0.00-0.029) 05/20/20 06:43 NT-Pro-B Natriuret Pep 117.3 pg/mL (0-450) 05/20/20 06:43 Total Protein 7.3 g/dL (6.3-8.2) 05/19/20 22:59 Albumin 3.8 g/dL (3.9-5) L 05/19/20 22:59 Albumin/Globulin Ratio 1.1 % 05/19/20 22:59 Lipase 58 units/L (13-60) 05/21/20 05:50 Urine Color Cherry (Yellow) 05/20/20 Unknown Urine Color [place] (Yellow) 05/20/20 Unknown Urine Turbidity Clear (Clear) 05/20/20 Unknown Urine Turbidity Cloudy (Clear) 05/20/20 Unknown Urine pH 6.0 (5.0-7.0) 05/20/20 Unknown Urine pH 7.0 (5.0-7.0) 05/20/20 Unknown Ur Specific [place] 1.022 (1.003-1.030) 05/20/20 Unknown Ur Specific [place] 1.055 (1.003-1.030) H 05/20/20 Unknown Urine Protein >500 mg/dL (Negative) 05/20/20 Unknown Urine Protein >500 mg/dL (Negative) 05/20/20 Unknown Urine Glucose (UA) Neg mg/dL (Negative) 05/20/20 Unknown Urine Glucose (UA) Neg mg/dL (Negative) 05/20/20 Unknown Urine Ketones Neg mg/dL (Negative) 05/20/20 Unknown Urine Ketones Neg mg/dL (Negative) 05/20/20 Unknown Urine Blood Neg (Negative) 05/20/20 Unknown Urine Blood Sm (Negative) 05/20/20 Unknown Urine Nitrite Neg (Negative) 05/20/20 Unknown Urine Nitrite Neg (Negative) 05/20/20 Unknown Urine Bilirubin Neg (Negative) 05/20/20 Unknown Urine Bilirubin Sm (Negative) 05/20/20 Unknown Urine Ictotest Positive (Negative) 05/20/20 Unknown Urine Urobilinogen 4.0 mg/dL (<2.0) 05/20/20 Unknown Urine Urobilinogen 4.0 mg/dL (<2.0) 05/20/20 Unknown Ur Leukocyte Esterase Neg (Negative) 05/20/20 Unknown Ur Leukocyte Esterase Neg (Negative) 05/20/20 Unknown Urine WBC (Auto) 2.0 /HPF (0.0-6.0) 05/20/20 Unknown Urine WBC (Auto) 7.0 /HPF (0.0-6.0) H 05/20/20 Unknown Urine RBC (Auto) 4.0 /HPF (0.0-6.0) 05/20/20 Unknown Urine RBC (Auto) 6.0 /HPF (0.0-6.0) 05/20/20 Unknown U Epithel Cells (Auto) 1.0 /HPF (0-13.0) 05/20/20 Unknown U Epithel Cells (Auto) 3.0 /HPF (0-13.0) 05/20/20 Unknown Urine Bacteria (Auto) 1+ /HPF (Negative) 05/20/20 Unknown Hyaline Casts 5 /LPF 05/20/20 Unknown Urine Mucus 3+ /HPF 05/20/20 Unknown Urine Opiates Screen Positive 05/20/20 Unknown Urine Methadone Screen Negative 05/20/20 Unknown Ur Barbiturates Screen Negative 05/20/20 Unknown Ur Phencyclidine Scrn Negative 05/20/20 Unknown Ur Amphetamines Screen Negative 05/20/20 Unknown U Benzodiazepines Scrn Negative 05/20/20 Unknown Urine Cocaine Screen Negative 05/20/20 Unknown U Marijuana (THC) Screen Negative 05/20/20 Unknown Drugs of Abuse Note Disclamer 05/20/20 Unknown Plasma/Serum Alcohol < 0.01 % (0-0.07) 05/20/20 06:43 Blood Type B POSITIVE 05/20/20 06:43 Antibody Screen Negative 05/20/20 06:43 Heard/IV: Voiding Method Urinal IV Catheter Type [Right Hand] Peripheral IV IV Catheter Type [Right Peripheral IV Antecubital] Active Medications - Current Medications Current Medications: Generic Name Dose Route Start Last Admin Trade Name Freq PRN Reason Stop Dose Admin Acetaminophen 650 mg 05/20/20 11:50 05/20/20 18:31 Acetaminophen 325 Mg Tab PO 650 mg Q4H PRN Administration Pain MILD(1-3)/Fever >100.5/FREITAS Levofloxacin/Dextrose 500 mg in 100 mls @ 100 mls/hr 05/20/20 13:00 05/20/20 15:31 Levaquin 500mg/100ml IV 100 mls/hr Q24H TWIN Administration Protocol Morphine Sulfate 2 mg 05/20/20 11:50 05/21/20 09:07 Morphine 2 Mg/1 Ml Inj IV 2 mg Q4H PRN Administration Pain, Moderate (4-6) Ondansetron HCl 4 mg 05/20/20 11:50 Ondansetron 4 Mg/2 Ml Inj IV Q8H PRN Nausea And Vomiting Sodium Chloride 10 ml 05/20/20 22:00 05/21/20 09:08 Sodium Chloride 0.9% 10 Ml Flush Syringe IV 10 ml BID TWIN Administration Sodium Chloride 10 ml 05/20/20 11:50 Sodium Chloride 0.9% 10 Ml Flush Syringe IV PRN PRN LINE FLUSH
[2020-05-21] MEDS ORDERED: POTASSIUM CHLORIDE 10 MEQ 10 MEQ/100 ML BAG IV ONE (10:00)
--- NOTE | 2020-05-21 11:06 | Progress Note ---
Assessment and Plan Assessment and plan: Acute pancreatitis. Etiology secondary to EtOH. Patient will be maintained on bowel rest and kept n.p.o. IV fluid hydration, pain control and supportive care. Serial lipase levels. Colitis. CT scan reveals interval development of concentric mural thickening involving the transverse colon that may represent a developing mild infectious/inflammatory colitis. Patient was started on empiric antibiotics of Levaquin daily. Check stool studies. Abdominal pain. Etiology secondary to above. Anemia. Etiology likely secondary to chronic blood loss from alcoholic gastritis. Patient with no overt bleeding. PPI daily. Monitor H&H and transfuse for hemoglobin less than 7. Hypokalemia. Replete potassium. Check magnesium. DVT prophylaxis. SCDs. 05/21/2020. Patient with significant hypokalemia. Replete potassium IV and p.o. Check magnesium and replete as needed. Continue IV antibiotics of Levaquin and Flagyl for colitis. Lipase within normal limits. Follow stool studies. The patient has been counseled on the importance of alcohol cessation. Patient reports a fall injuring his right hand. Check right hand plain films. History Interval history: Patient still complains of mid epigastric pain Hospitalist Physical - Constitutional Vitals: Temp Pulse Resp BP Pulse Ox 99.0 F 88 22 160/97 98 05/21/20 08:10 05/21/20 08:10 05/21/20 09:07 05/21/20 08:10 05/21/20 08:10 General appearance: Present: no acute distress, well-nourished HEART Score - HEART Score Troponin: Troponin T < 0.010 ng/mL (0.00-0.029) 05/20/20 06:43 Results - Labs CBC & Chem 7: 05/21/20 05:50 05/21/20 05:50 Labs: Laboratory Last Values WBC 8.6 K/mm3 (4.5-11.0) 05/21/20 05:50 RBC 2.73 M/mm3 (3.65-5.03) L 05/21/20 05:50 Hgb 8.7 gm/dl (11.8-15.2) L 05/21/20 05:50 Hct 25.7 % (35.5-45.6) L D 05/21/20 05:50 MCV 94 fl (84-94) 05/21/20 05:50 MCH 32 pg (28-32) 05/21/20 05:50 MCHC 34 % (32-34) 05/21/20 05:50 RDW 16.6 % (13.2-15.2) H 05/21/20 05:50 Plt Count 65 K/mm3 (140-440) L 05/21/20 05:50 Lymph % (Auto) 12.0 % (13.4-35.0) L 05/21/20 05:50 [place] % (Auto) 5.1 % (0.0-7.3) 05/21/20 05:50 Eos % (Auto) 1.1 % (0.0-4.3) 05/21/20 05:50 Baso % (Auto) 0.2 % (0.0-1.8) 05/21/20 05:50 Lymph # (Auto) 1.0 K/mm3 (1.2-5.4) L 05/21/20 05:50 [place] # (Auto) 0.4 K/mm3 (0.0-0.8) 05/21/20 05:50 Eos # (Auto) 0.1 K/mm3 (0.0-0.4) 05/21/20 05:50 Baso # (Auto) 0.0 K/mm3 (0.0-0.1) 05/21/20 05:50 Seg Neutrophils % 81.6 % (40.0-70.0) H 05/21/20 05:50 Seg Neutrophils # 7.0 K/mm3 (1.8-7.7) 05/21/20 05:50 PT 13.0 Sec. (12.2-14.9) 05/20/20 06:43 INR 1.00 (0.87-1.13) 05/20/20 06:43 APTT 27.5 Sec. (24.2-36.6) 05/20/20 06:43 Sodium 137 mmol/L (137-145) 05/21/20 05:50 Potassium 2.3 mmol/L (3.6-5.0) L* 05/21/20 05:50 Chloride 93.2 mmol/L (98-107) L 05/21/20 05:50 Carbon Dioxide 29 mmol/L (22-30) 05/21/20 05:50 Anion Gap 17 mmol/L 05/21/20 05:50 BUN 2 mg/dL (9-20) L 05/21/20 05:50 Creatinine 0.5 mg/dL (0.8-1.3) L 05/21/20 05:50 Estimated GFR > 60 ml/min 05/21/20 05:50 BUN/Creatinine Ratio 4 % 05/21/20 05:50 Glucose 94 mg/dL (75-100) 05/21/20 05:50 Lactic Acid 3.20 mmol/L (0.7-2.0) H* 05/20/20 07:46 Calcium 8.4 mg/dL (8.4-10.2) 05/21/20 05:50 Magnesium 0.70 mg/dL (1.7-2.3) L* 05/20/20 06:43 Total Bilirubin 1.30 mg/dL (0.1-1.2) H 05/19/20 22:59 AST 173 units/L (5-40) H 05/19/20 22:59 ALT 56 units/L (7-56) 05/19/20 22:59 Alkaline Phosphatase 237 units/L (35-129) H 05/19/20 22:59 Total Creatine Kinase 215 units/L (55-170) H 05/20/20 06:43 CK-MB (CK-2) 1.2 ng/mL (0.0-4.0) 05/20/20 06:43 CK-MB (CK-2) Rel Index 0.5 (0-4) 05/20/20 06:43 Troponin T < 0.010 ng/mL (0.00-0.029) 05/20/20 06:43 NT-Pro-B Natriuret Pep 117.3 pg/mL (0-450) 05/20/20 06:43 Total Protein 7.3 g/dL (6.3-8.2) 05/19/20 22:59 Albumin 3.8 g/dL (3.9-5) L 05/19/20 22:59 Albumin/Globulin Ratio 1.1 % 05/19/20 22:59 Lipase 58 units/L (13-60) 05/21/20 05:50 Urine Color Cherry (Yellow) 05/20/20 Unknown Urine Color [place] (Yellow) 05/20/20 Unknown Urine Turbidity Clear (Clear) 05/20/20 Unknown Urine Turbidity Cloudy (Clear) 05/20/20 Unknown Urine pH 6.0 (5.0-7.0) 05/20/20 Unknown Urine pH 7.0 (5.0-7.0) 05/20/20 Unknown Ur Specific [place] 1.022 (1.003-1.030) 05/20/20 Unknown Ur Specific [place] 1.055 (1.003-1.030) H 05/20/20 Unknown Urine Protein >500 mg/dL (Negative) 05/20/20 Unknown Urine Protein >500 mg/dL (Negative) 05/20/20 Unknown Urine Glucose (UA) Neg mg/dL (Negative) 05/20/20 Unknown Urine Glucose (UA) Neg mg/dL (Negative) 05/20/20 Unknown Urine Ketones Neg mg/dL (Negative) 05/20/20 Unknown Urine Ketones Neg mg/dL (Negative) 05/20/20 Unknown Urine Blood Neg (Negative) 05/20/20 Unknown Urine Blood Sm (Negative) 05/20/20 Unknown Urine Nitrite Neg (Negative) 05/20/20 Unknown Urine Nitrite Neg (Negative) 05/20/20 Unknown Urine Bilirubin Neg (Negative) 05/20/20 Unknown Urine Bilirubin Sm (Negative) 05/20/20 Unknown Urine Ictotest Positive (Negative) 05/20/20 Unknown Urine Urobilinogen 4.0 mg/dL (<2.0) 05/20/20 Unknown Urine Urobilinogen 4.0 mg/dL (<2.0) 05/20/20 Unknown Ur Leukocyte Esterase Neg (Negative) 05/20/20 Unknown Ur Leukocyte Esterase Neg (Negative) 05/20/20 Unknown Urine WBC (Auto) 2.0 /HPF (0.0-6.0) 05/20/20 Unknown Urine WBC (Auto) 7.0 /HPF (0.0-6.0) H 05/20/20 Unknown Urine RBC (Auto) 4.0 /HPF (0.0-6.0) 05/20/20 Unknown Urine RBC (Auto) 6.0 /HPF (0.0-6.0) 05/20/20 Unknown U Epithel Cells (Auto) 1.0 /HPF (0-13.0) 05/20/20 Unknown U Epithel Cells (Auto) 3.0 /HPF (0-13.0) 05/20/20 Unknown Urine Bacteria (Auto) 1+ /HPF (Negative) 05/20/20 Unknown Hyaline Casts 5 /LPF 05/20/20 Unknown Urine Mucus 3+ /HPF 05/20/20 Unknown Urine Opiates Screen Positive 05/20/20 Unknown Urine Methadone Screen Negative 05/20/20 Unknown Ur Barbiturates Screen Negative 05/20/20 Unknown Ur Phencyclidine Scrn Negative 05/20/20 Unknown Ur Amphetamines Screen Negative 05/20/20 Unknown U Benzodiazepines Scrn Negative 05/20/20 Unknown Urine Cocaine Screen Negative 05/20/20 Unknown U Marijuana (THC) Screen Negative 05/20/20 Unknown Drugs of Abuse Note Disclamer 05/20/20 Unknown Plasma/Serum Alcohol < 0.01 % (0-0.07) 05/20/20 06:43 Blood Type B POSITIVE 05/20/20 06:43 Antibody Screen Negative 05/20/20 06:43 Heard/IV: Voiding Method Urinal IV Catheter Type [Right Hand] Peripheral IV IV Catheter Type [Right Peripheral IV Antecubital] Active Medications - Current Medications Current Medications: Generic Name Dose Route Start Last Admin Trade Name Freq PRN Reason Stop Dose Admin Acetaminophen 650 mg 05/20/20 11:50 05/20/20 18:31 Acetaminophen 325 Mg Tab PO 650 mg Q4H PRN Administration Pain MILD(1-3)/Fever >100.5/FREITAS Levofloxacin/Dextrose 500 mg in 100 mls @ 100 mls/hr 05/20/20 13:00 05/20/20 15:31 Levaquin 500mg/100ml IV 100 mls/hr Q24H TWIN Administration Protocol Potassium Chloride 10 meq in 100 mls @ 100 mls/hr 05/21/20 12:00 Kcl 10meq/100ml IV 05/21/20 13:00 ONCE NR Morphine Sulfate 2 mg 05/20/20 11:50 05/21/20 09:07 Morphine 2 Mg/1 Ml Inj IV 2 mg Q4H PRN Administration Pain, Moderate (4-6) Ondansetron HCl 4 mg 05/20/20 11:50 Ondansetron 4 Mg/2 Ml Inj IV Q8H PRN Nausea And Vomiting Potassium Chloride 40 meq 05/21/20 14:00 Potassium Chloride Er 20 Meq Tab PO 05/21/20 15:00 ONCE NR Sodium Chloride 10 ml 05/20/20 22:00 05/21/20 09:08 Sodium Chloride 0.9% 10 Ml Flush Syringe IV 10 ml BID TWIN Administration Sodium Chloride 10 ml 05/20/20 11:50 Sodium Chloride 0.9% 10 Ml Flush Syringe IV PRN PRN LINE FLUSH
[2020-05-21] MEDS ORDERED: POTASSIUM CHLORIDE 10 MEQ 10 MEQ/100 ML BAG IV NR (12:00)
--- NOTE | 2020-05-21 14:40 | XRay Report ---
. RIGHT HAND 2 VIEWS INDICATION: r/o fracture. COMPARISON: None. 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 No a cute osseous abnormality or bony destruction is appreciated. No joint pathology. The soft tissues are within normal limits. Signer Name: Hany Calixto Jr, MD Signed: 05/21/2020 2:35 PM Workstation Name: [id number]
--- NOTE | 2020-05-21 19:38 | Consultation ---
History of Present Illness - Reason for Consult Consult date: 05/21/20 Abd pain, colitis Requesting physician: BRAULIO CHEN - History of Present Illness 40 yo BM with hx of EtOH abuse, ~1 pt vodka/d, admitted with several day hx of upper abd pain radiating around the side, which he states is different from his pancreatitis pain. No N/V. Pt has also developed diarrhea with several BMs/d instead of his usual qd. No N/V, F/C/NS, GI bleed. CT in ER showed transverse colon thickening and inflammation. Pt was hospitalized at end of 04/2020 with alcoholic pancreatitis, and colon findings now are new. Meds reviewed. Past History Past Medical History: other (Pancreatitis, alcohol abuse) Past Surgical History: No surgical history Social history: no significant social history Family history: no significant family history Medications and Allergies Allergies Allergy/AdvReac Type Severity Reaction Status Date / Time No Known Allergies Allergy Unverified 04/24/20 12:30 Home Medications Medication Instructions Recorded Confirmed Last Taken Type Acetaminophen [Acetaminophen TAB] 650 mg PO Q4H PRN #20 tablet 05/06/20 Unknown Rx Folic Acid 1 mg PO DAILY #30 tablet 05/06/20 Unknown Rx HYDROcodone/APAP 7.5-325 [[place] 1 each PO Q4H PRN #14 tablet 05/06/20 Unknown Rx 7.5-325 mg TAB] Multivitamin 1 each PO DAILY #30 tablet 05/06/20 Unknown Rx Ondansetron [Zofran ODT TAB] 8 mg PO Q12HR #14 tab.rapdis 05/06/20 Unknown Rx Pantoprazole [Protonix TAB] 40 mg PO BIDAC #60 tablet 05/06/20 Unknown Rx Potassium Chloride [K-Dur] 20 meq PO BID #10 tab 05/06/20 Unknown Rx Thiamine [Vitamin B-1] 100 mg PO QDAY #30 tablet 05/06/20 Unknown Rx Active Meds: Active Medications Acetaminophen (Acetaminophen 325 Mg Tab) 650 mg PO Q4H PRN PRN Reason: Pain MILD(1-3)/Fever >100.5/FREITAS Last Admin: 05/20/20 18:31 Dose: 650 mg Documented by: Levofloxacin/Dextrose (Levaquin 500mg/100ml) 500 mg in 100 mls @ 100 mls/hr IV Q24H TWIN; Protocol Last Admin: 05/21/20 15:04 Dose: 100 mls/hr Documented by: Morphine Sulfate (Morphine 2 Mg/1 Ml Inj) 2 mg IV Q4H PRN PRN Reason: Pain, Moderate (4-6) Last Admin: 05/21/20 18:01 Dose: 2 mg Documented by: Ondansetron HCl (Ondansetron 4 Mg/2 Ml Inj) 4 mg IV Q8H PRN PRN Reason: Nausea And Vomiting Sodium Chloride (Sodium Chloride 0.9% 10 Ml Flush Syringe) 10 ml IV BID TWIN Last Admin: 05/21/20 09:08 Dose: 10 ml Documented by: Sodium Chloride (Sodium Chloride 0.9% 10 Ml Flush Syringe) 10 ml IV PRN PRN PRN Reason: LINE FLUSH Review of Systems All systems: negative (as noted in HPI) Exam - Constitutional Vitals: Temp Pulse Resp BP Pulse Ox 98.0 F 96 H 20 155/88 96 05/21/20 16:16 05/21/20 18:01 05/21/20 18:01 05/21/20 16:16 05/21/20 16:17 General appearance: Present: no acute distress - EENT Eyes: Present: PERRL, EOM intact ENT: hearing intact - Respiratory Respiratory effort: normal - Cardiovascular Rhythm: regular Heart Sounds: Present: S1 & S2 - Extremities Extremities: No edema - Abdominal General gastrointestinal: Present: soft, tender (Mild, epigastric) Results - Labs CBC & Chem 7: 05/21/20 05:50 05/21/20 05:50 Labs: Abnormal lab results 05/21/20 05/21/20 Range/Units 05:50 05:50 RBC 2.73 L (3.65-5.03) M/mm3 Hgb 8.7 L (11.8-15.2) gm/dl Hct 25.7 L D (35.5-45.6) % RDW 16.6 H (13.2-15.2) % Plt Count 65 L (140-440) K/mm3 Lymph % (Auto) 12.0 L (13.4-35.0) % Lymph # (Auto) 1.0 L (1.2-5.4) K/mm3 Seg Neutrophils % 81.6 H (40.0-70.0) % Potassium 2.3 L* (3.6-5.0) mmol/L Chloride 93.2 L (98-107) mmol/L BUN 2 L (9-20) mg/dL Creatinine 0.5 L (0.8-1.3) mg/dL - Imaging and Cardiology CT scan - abdomen: report reviewed Assessment and Plan 1. Colitis - etiology unclear. Acute onset, likely infectious, doubt ischemic. Consider C diff. - agree with empiric abx - monitor for response - no plans for colonoscopy at present.
[2020-05-22] MEDS: MORPHINE 2 MG/1 ML INJ IV PRN ×4 (04:56→20:50)
[2020-05-22 10:23] LABS: Alanine Aminotransferase 46 units/L (7-56); Albumin 3.5 g/dL (3.9-5); Blood Urea Nitrogen 3 mg/dL (9-20); Calcium 8.5 mg/dL (8.4-10.2); Hemolysis Index 1
[2020-05-22 10:24] LABS: BUN/Creatinine Ratio 5
--- NOTE | 2020-05-22 13:20 | Progress Note ---
Assessment and Plan 1. Colitis - etiology unclear. Improving on abx. Acute onset, likely infectious, doubt ischemic. Consider C diff. - consider changing to oral abx, and if continues to do well, possible D/C tomorrow - follow up on stool studies Subjective Date of service: 05/22/20 Interval history: Pt states he feels much better, with less pain. BMs 2-3x/d, liquid to soft. Renato po well. Objective - Constitutional Vitals: Vital Signs - 12hr 05/22/20 05/22/20 05/22/20 03:00 03:43 04:56 Temperature 99.9 F H Pulse Rate 107 H 82 Respiratory 16 20 Rate Blood Pressure 146/86 O2 Sat by Pulse 96 Oximetry 05/22/20 05/22/20 05/22/20 07:59 08:13 10:21 Temperature 99.0 F Pulse Rate 80 97 H Respiratory 18 22 Rate Blood Pressure 157/91 O2 Sat by Pulse 100 Oximetry 05/22/20 11:19 Temperature 98.9 F Pulse Rate 80 Respiratory 18 Rate Blood Pressure 153/90 O2 Sat by Pulse 97 Oximetry General appearance: Present: no acute distress - EENT Eyes: PERRL, EOM intact ENT: hearing intact - Respiratory Respiratory effort: normal - Gastrointestinal General gastrointestinal: Present: soft, tender (mild, nonspecific) - Labs CBC & Chem 7: 05/21/20 05:50 05/22/20 09:45 Labs: Abnormal lab results 05/22/20 05/22/20 05/22/20 Range/Units 01:48 05:18 09:45 Sodium 134 L (137-145) mmol/L Potassium 2.9 L* D (3.6-5.0) mmol/L Chloride 89.0 L (98-107) mmol/L BUN 3 L (9-20) mg/dL Creatinine 0.6 L (0.8-1.3) mg/dL Magnesium 0.80 L* 0.90 L* (1.7-2.3) mg/dL AST 158 H (5-40) units/L Alkaline Phosphatase 201 H (35-129) units/L Albumin 3.5 L (3.9-5) g/dL Lipase 93 H (13-60) units/L Medications & Allergies - Medications Allergies/Adverse Reactions: Allergies No Known Allergies Allergy (Unverified 04/24/20 12:30) Home Medications: Home Medications Medication Instructions Recorded Confirmed Last Taken Type Acetaminophen [Acetaminophen TAB] 650 mg PO Q4H PRN #20 tablet 05/06/20 Unknown Rx Folic Acid 1 mg PO DAILY #30 tablet 05/06/20 Unknown Rx HYDROcodone/APAP 7.5-325 [[place] 1 each PO Q4H PRN #14 tablet 05/06/20 Unknown Rx 7.5-325 mg TAB] Multivitamin 1 each PO DAILY #30 tablet 05/06/20 Unknown Rx Ondansetron [Zofran ODT TAB] 8 mg PO Q12HR #14 tab.rapdis 05/06/20 Unknown Rx Pantoprazole [Protonix TAB] 40 mg PO BIDAC #60 tablet 05/06/20 Unknown Rx Potassium Chloride [K-Dur] 20 meq PO BID #10 tab 05/06/20 Unknown Rx Thiamine [Vitamin B-1] 100 mg PO QDAY #30 tablet 05/06/20 Unknown Rx Active Medications: Generic Name Dose Route Start Last Admin Trade Name Vishnuq PRN Reason Stop Dose Admin Acetaminophen 650 mg 05/20/20 11:50 05/20/20 18:31 Acetaminophen 325 Mg Tab PO 650 mg Q4H PRN Administration Pain MILD(1-3)/Fever >100.5/FREITAS Levofloxacin/Dextrose 500 mg in 100 mls @ 100 mls/hr 05/20/20 13:00 05/21/20 15:04 Levaquin 500mg/100ml IV 100 mls/hr Q24H TWIN Administration Protocol Morphine Sulfate 2 mg 05/20/20 11:50 05/22/20 10:21 Morphine 2 Mg/1 Ml Inj IV 2 mg Q4H PRN Administration Pain, Moderate (4-6) Ondansetron HCl 4 mg 05/20/20 11:50 05/21/20 23:19 Ondansetron 4 Mg/2 Ml Inj IV 4 mg Q8H PRN Administration Nausea And Vomiting Sodium Chloride 10 ml 05/20/20 22:00 05/22/20 10:21 Sodium Chloride 0.9% 10 Ml Flush Syringe IV 10 ml BID TWIN Administration Sodium Chloride 10 ml 05/20/20 11:50 Sodium Chloride 0.9% 10 Ml Flush Syringe IV PRN PRN LINE FLUSH HEART Score - HEART Score Troponin: Troponin T < 0.010 ng/mL (0.00-0.029) 05/20/20 06:43
--- NOTE | 2020-05-22 14:58 | Progress Note ---
Assessment and Plan Assessment and plan: Acute pancreatitis. Etiology secondary to EtOH. Patient will be maintained on bowel rest and kept n.p.o. IV fluid hydration, pain control and supportive care. Serial lipase levels. Colitis. CT scan reveals interval development of concentric mural thickening involving the transverse colon that may represent a developing mild infectious/inflammatory colitis. Patient was started on empiric antibiotics of Levaquin daily. Check stool studies. Abdominal pain. Etiology secondary to above. Anemia. Etiology likely secondary to chronic blood loss from alcoholic gastritis. Patient with no overt bleeding. PPI daily. Monitor H&H and transfuse for hemoglobin less than 7. Hypokalemia. Replete potassium. Check magnesium. DVT prophylaxis. SCDs. 05/21/2020. Patient with significant hypokalemia. Replete potassium IV and p.o. Check magnesium and replete as needed. Continue IV antibiotics of Levaquin and Flagyl for colitis. Lipase within normal limits. Follow stool studies. The patient has been counseled on the importance of alcohol cessation. Patient reports a fall injuring his right hand. Check right hand plain films. 05/22/2020. Still has electrolyte abnormalities. Magnesium and potassium replacement ordered. RN informed. Repeat BMP and magnesium by 9 PM. Order placed. Patient has been started on a diet today. Denies any diarrhea. Has soft stool. History Interval history: No acute events overnight Hospitalist Physical - Physical exam Narrative exam: VITAL SIGNS: Reviewed. GENERAL: Awake HEAD: No signs of head trauma. EYES: Pupils are equal. Extraocular motions intact. MOUTH: Oropharynx is normal. NECK: No adenopathy, no JVD. CHEST: Chest with diminished breath sounds bilaterally. No wheezes, rales, or rhonchi. CARDIAC: normal S1 and S2, without murmurs, gallops, or rubs. ABDOMEN: Soft, tender and non distended. No rebound or guarding, and no masses palpated. Bowel Sounds normal. MUSCULOSKELETAL: No edema NEUROLOGIC EXAM: Alert and oriented x3. No focal neurologic deficits SKIN: No obvious lesions - Constitutional Vitals: Temp Pulse Resp BP Pulse Ox 98.9 F 80 18 153/90 97 05/22/20 11:19 05/22/20 11:19 05/22/20 11:19 05/22/20 11:19 05/22/20 11:19 General appearance: Present: no acute distress HEART Score - HEART Score Troponin: Troponin T < 0.010 ng/mL (0.00-0.029) 05/20/20 06:43 Results - Labs CBC & Chem 7: 05/21/20 05:50 05/22/20 09:45 Labs: Laboratory Last Values WBC 8.6 K/mm3 (4.5-11.0) 05/21/20 05:50 RBC 2.73 M/mm3 (3.65-5.03) L 05/21/20 05:50 Hgb 8.7 gm/dl (11.8-15.2) L 05/21/20 05:50 Hct 25.7 % (35.5-45.6) L D 05/21/20 05:50 MCV 94 fl (84-94) 05/21/20 05:50 MCH 32 pg (28-32) 05/21/20 05:50 MCHC 34 % (32-34) 05/21/20 05:50 RDW 16.6 % (13.2-15.2) H 05/21/20 05:50 Plt Count 65 K/mm3 (140-440) L 05/21/20 05:50 Lymph % (Auto) 12.0 % (13.4-35.0) L 05/21/20 05:50 [place] % (Auto) 5.1 % (0.0-7.3) 05/21/20 05:50 Eos % (Auto) 1.1 % (0.0-4.3) 05/21/20 05:50 Baso % (Auto) 0.2 % (0.0-1.8) 05/21/20 05:50 Lymph # (Auto) 1.0 K/mm3 (1.2-5.4) L 05/21/20 05:50 [place] # (Auto) 0.4 K/mm3 (0.0-0.8) 05/21/20 05:50 Eos # (Auto) 0.1 K/mm3 (0.0-0.4) 05/21/20 05:50 Baso # (Auto) 0.0 K/mm3 (0.0-0.1) 05/21/20 05:50 Seg Neutrophils % 81.6 % (40.0-70.0) H 05/21/20 05:50 Seg Neutrophils # 7.0 K/mm3 (1.8-7.7) 05/21/20 05:50 PT 13.0 Sec. (12.2-14.9) 05/20/20 06:43 INR 1.00 (0.87-1.13) 05/20/20 06:43 APTT 27.5 Sec. (24.2-36.6) 05/20/20 06:43 Sodium 134 mmol/L (137-145) L 05/22/20 09:45 Potassium 2.9 mmol/L (3.6-5.0) L* D 05/22/20 09:45 Chloride 89.0 mmol/L (98-107) L 05/22/20 09:45 Carbon Dioxide 28 mmol/L (22-30) 05/22/20 09:45 Anion Gap 20 mmol/L 05/22/20 09:45 BUN 3 mg/dL (9-20) L 05/22/20 09:45 Creatinine 0.6 mg/dL (0.8-1.3) L 05/22/20 09:45 Estimated GFR > 60 ml/min 05/22/20 09:45 BUN/Creatinine Ratio 5 % 05/22/20 09:45 Glucose 82 mg/dL (75-100) 05/22/20 09:45 Lactic Acid 3.20 mmol/L (0.7-2.0) H* 05/20/20 07:46 Calcium 8.5 mg/dL (8.4-10.2) 05/22/20 09:45 Magnesium 0.90 mg/dL (1.7-2.3) L* 05/22/20 09:45 Total Bilirubin 1.20 mg/dL (0.1-1.2) 05/22/20 09:45 AST 158 units/L (5-40) H 05/22/20 09:45 ALT 46 units/L (7-56) 05/22/20 09:45 Alkaline Phosphatase 201 units/L (35-129) H 05/22/20 09:45 Total Creatine Kinase 215 units/L (55-170) H 05/20/20 06:43 CK-MB (CK-2) 1.2 ng/mL (0.0-4.0) 05/20/20 06:43 CK-MB (CK-2) Rel Index 0.5 (0-4) 05/20/20 06:43 Troponin T < 0.010 ng/mL (0.00-0.029) 05/20/20 06:43 NT-Pro-B Natriuret Pep 117.3 pg/mL (0-450) 05/20/20 06:43 Total Protein 7.3 g/dL (6.3-8.2) 05/22/20 09:45 Albumin 3.5 g/dL (3.9-5) L 05/22/20 09:45 Albumin/Globulin Ratio 0.9 % 05/22/20 09:45 Lipase 93 units/L (13-60) H 05/22/20 05:18 Urine Color Cherry (Yellow) 05/20/20 Unknown Urine Color Cherry (Yellow) 05/20/20 Unknown Urine Turbidity Clear (Clear) 05/20/20 Unknown Urine Turbidity Cloudy (Clear) 05/20/20 Unknown Urine pH 6.0 (5.0-7.0) 05/20/20 Unknown Urine pH 7.0 (5.0-7.0) 05/20/20 Unknown Ur Specific [place] 1.022 (1.003-1.030) 05/20/20 Unknown Ur Specific [place] 1.055 (1.003-1.030) H 05/20/20 Unknown Urine Protein >500 mg/dL (Negative) 05/20/20 Unknown Urine Protein >500 mg/dL (Negative) 05/20/20 Unknown Urine Glucose (UA) Neg mg/dL (Negative) 05/20/20 Unknown Urine Glucose (UA) Neg mg/dL (Negative) 05/20/20 Unknown Urine Ketones Neg mg/dL (Negative) 05/20/20 Unknown Urine Ketones Neg mg/dL (Negative) 05/20/20 Unknown Urine Blood Neg (Negative) 05/20/20 Unknown Urine Blood Sm (Negative) 05/20/20 Unknown Urine Nitrite Neg (Negative) 05/20/20 Unknown Urine Nitrite Neg (Negative) 05/20/20 Unknown Urine Bilirubin Neg (Negative) 05/20/20 Unknown Urine Bilirubin Sm (Negative) 05/20/20 Unknown Urine Ictotest Positive (Negative) 05/20/20 Unknown Urine Urobilinogen 4.0 mg/dL (<2.0) 05/20/20 Unknown Urine Urobilinogen 4.0 mg/dL (<2.0) 05/20/20 Unknown Ur Leukocyte Esterase Neg (Negative) 05/20/20 Unknown Ur Leukocyte Esterase Neg (Negative) 05/20/20 Unknown Urine WBC (Auto) 2.0 /HPF (0.0-6.0) 05/20/20 Unknown Urine WBC (Auto) 7.0 /HPF (0.0-6.0) H 05/20/20 Unknown Urine RBC (Auto) 4.0 /HPF (0.0-6.0) 05/20/20 Unknown Urine RBC (Auto) 6.0 /HPF (0.0-6.0) 05/20/20 Unknown U Epithel Cells (Auto) 1.0 /HPF (0-13.0) 05/20/20 Unknown U Epithel Cells (Auto) 3.0 /HPF (0-13.0) 05/20/20 Unknown Urine Bacteria (Auto) 1+ /HPF (Negative) 05/20/20 Unknown Hyaline Casts 5 /LPF 05/20/20 Unknown Urine Mucus 3+ /HPF 05/20/20 Unknown Urine Opiates Screen Positive 05/20/20 Unknown Urine Methadone Screen Negative 05/20/20 Unknown Ur Barbiturates Screen Negative 05/20/20 Unknown Ur Phencyclidine Scrn Negative 05/20/20 Unknown Ur Amphetamines Screen Negative 05/20/20 Unknown U Benzodiazepines Scrn Negative 05/20/20 Unknown Urine Cocaine Screen Negative 05/20/20 Unknown U Marijuana (THC) Screen Negative 05/20/20 Unknown Drugs of Abuse Note Disclamer 05/20/20 Unknown Plasma/Serum Alcohol < 0.01 % (0-0.07) 05/20/20 06:43 Blood Type B POSITIVE 05/20/20 06:43 Antibody Screen Negative 05/20/20 06:43 Heard/IV: Voiding Method Toilet IV Catheter Type [Right Hand] Peripheral IV IV Catheter Type [Right Peripheral IV Antecubital] Active Medications - Current Medications Current Medications: Generic Name Dose Route Start Last Admin Trade Name Freq PRN Reason Stop Dose Admin Acetaminophen 650 mg 05/20/20 11:50 05/20/20 18:31 Acetaminophen 325 Mg Tab PO 650 mg Q4H PRN Administration Pain MILD(1-3)/Fever >100.5/FREITAS Levofloxacin/Dextrose 500 mg in 100 mls @ 100 mls/hr 05/20/20 13:00 05/21/20 15:04 Levaquin 500mg/100ml IV 100 mls/hr Q24H TWIN Administration Protocol Magnesium Sulfate 2 gm in 50 mls @ 25 mls/hr 05/22/20 14:50 Magnesium Sulfate 2gm/50ml IV 05/22/20 16:49 ONCE ONE Potassium Chloride 20 meq in 100 mls @ 100 mls/hr 05/22/20 15:00 Kcl 20meq/100ml IV 05/22/20 16:59 Q1H TWIN Potassium Chloride 10 meq in 100 mls @ 100 mls/hr 05/22/20 15:00 Kcl 10meq/100ml IV 05/22/20 16:59 Q1H TWIN Magnesium Sulfate 1 gm/ Sodium 52 mls @ 52 mls/hr 05/22/20 14:53 Chloride IV 05/22/20 15:52 ONCE ONE Morphine Sulfate 2 mg 05/20/20 11:50 05/22/20 10:21 Morphine 2 Mg/1 Ml Inj IV 2 mg Q4H PRN Administration Pain, Moderate (4-6) Ondansetron HCl 4 mg 05/20/20 11:50 05/21/20 23:19 Ondansetron 4 Mg/2 Ml Inj IV 4 mg Q8H PRN Administration Nausea And Vomiting Potassium Chloride 40 meq 05/22/20 14:51 Potassium Chloride Er 20 Meq Tab PO 05/22/20 14:52 ONCE ONE Sodium Chloride 10 ml 05/20/20 22:00 05/22/20 10:21 Sodium Chloride 0.9% 10 Ml Flush Syringe IV 10 ml BID TWIN Administration Sodium Chloride 10 ml 05/20/20 11:50 Sodium Chloride 0.9% 10 Ml Flush Syringe IV PRN PRN LINE FLUSH Nutrition/Malnutrition Assess - Dietary Evaluation Nutrition/Malnutrition Findings: Nutrition Notes Start: 05/22/20 13:18 Freq: Status: Active Protocol: Document 05/22/20 13:18 EN (Rec: 05/22/20 13:29 EN [id number]) Co-Sign 05/22/20 13:18 MK Nutrition Notes Need for Assessment generated from: Low BMI Initial or Follow up Assessment Other Pertinent Diagnosis Pancreatitis, Etoh abuse, colitis, hypokalemia, anemia Current Diet Clear liquid Labs/Tests Na 134 K+ 2.9 Mag 0.9 Pertinent Medications Reviewed Height 5 ft 10 in Weight 56.5 kg Usual Body Weight 75 kg [place] Body Weight (kg) 75.45 BMI 17.9 Intake Prior to Admission Fair Weight change and time frame 25% weight loss in 8 months Weight Status Underweight Subjective/Other Information Pt screened for low BMI. Pt reports UBW of 165lbs 8 months ago. 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 Pt denies N/V/D and states that he has a good appetite. Pt is requested a regular diet . Pt was NPO this morning. Pt was ordered a clear liquid diet for lunch, but RN states that MD will likely upgrade diet for dinner. Pt would like ONS. 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 No Is Patient Ambulatory and/or Out of Bed Yes REE-([facility]-ambulatory/OOB) [ 1919.125 [id number]] Kcal/Kg value to use for calculation 39 Approximate Energy Requirements Using 2204 kcal/Kg Calculation Used for Recommendations Kcal/kg Additional Notes Protein: 1.2-1.5g/kg (68-85g) Fluid: 1 ml/kcal Nutrition Intervention Change Diet Order: Advance diet when medically advised Add Supplement/Snack (indicate name/kcal Ensure Clear TID /protein ) Provides kCal: 720 Provides Protein (gm) 24 Goal #1 Diet Advancement Goal #2 Meet 75% of energy and protein needs via PO and ONS Goal #3 Weight gain/maintenance Anticipated Discharge Needs: Unable to determine at this time Follow-Up By: 05/24/20 Additional Comments F/u for diet advancement, intakes and ONS tolerance
[2020-05-22] MEDS ORDERED: MAGNESIUM SULFATE 1 GM in SODIUM CHLORIDE 0.9% 50 ML IV ONE (15:00)
[2020-05-22] MEDS ORDERED: POTASSIUM CHLORIDE 20 MEQ 20 MEQ/100 ML BAG IV SCH (15:00)
[2020-05-22] MEDS: POTASSIUM CHLORIDE 10 MEQ 10 MEQ/100 ML BAG IV SCH ×2 (15:57→18:15)
[2020-05-22] MEDS ORDERED: POTASSIUM CHLORIDE ER 20 MEQ TAB PO ONE ×2 (16:00→16:13)
[2020-05-22] MEDS ORDERED: MAGNESIUM SULFATE 2 GM/50 ML BAG IV ONE (16:00)
[2020-05-22 21:23] LABS: Blood Urea Nitrogen 4 mg/dL (9-20); Hemolysis Index 1
[2020-05-22 21:24] LABS: BUN/Creatinine Ratio 7
[2020-05-23] MEDS: MORPHINE 2 MG/1 ML INJ IV PRN ×5 (01:52→21:08)
[2020-05-23 06:45] LABS: Alanine Aminotransferase 37 units/L (7-56); BUN/Creatinine Ratio 6; Blood Urea Nitrogen 3 mg/dL (9-20); Hemolysis Index 11
[2020-05-23] MEDS ORDERED: MAGNESIUM SULFATE 2 GM/50 ML BAG IV ONE (09:30)
[2020-05-23] MEDS: POTASSIUM CHLORIDE 10 MEQ 10 MEQ/100 ML BAG IV SCH ×4 (10:01→14:46)
[2020-05-23] MEDS: levoFLOXacin 500 MG TAB PO SCH (11:21)
--- NOTE | 2020-05-23 12:42 | Progress Note ---
Assessment and Plan 1. Colitis - etiology unclear. Improving on abx. Acute onset, likely infectious, doubt ischemic. Consider C diff. - consider changing to oral abx, and D/C home once lytes improved - follow up on stool studies Subjective Date of service: 05/23/20 Interval history: Pt states he is stable. BMs 6-8x yesterday, liquid to soft. Last BM 6 hrs ago. Renato po well. Objective - Constitutional Vitals: Vital Signs - 12hr 05/23/20 05/23/20 05/23/20 03:00 04:31 08:23 Temperature 98.4 F 98.3 F Pulse Rate 78 78 75 Respiratory 18 18 Rate Blood Pressure 164/93 157/93 O2 Sat by Pulse 99 97 Oximetry General appearance: Present: no acute distress - EENT Eyes: PERRL, EOM intact ENT: hearing intact - Respiratory Respiratory effort: normal - Gastrointestinal General gastrointestinal: Present: soft, tender (Mild, nonspecific) - Labs CBC & Chem 7: 05/21/20 05:50 05/23/20 05:50 Labs: Abnormal lab results 05/22/20 05/22/20 05/23/20 Range/Units 09:45 20:48 05:50 Sodium 134 L 135 L (137-145) mmol/L Potassium 3.0 L 2.8 L* (3.6-5.0) mmol/L Chloride 93.8 L 96.1 L (98-107) mmol/L Carbon Dioxide 31 H (22-30) mmol/L BUN 4 L 3 L (9-20) mg/dL Creatinine 0.6 L 0.5 L (0.8-1.3) mg/dL Glucose 102 H 136 H (75-100) mg/dL Calcium 8.0 L 8.0 L (8.4-10.2) mg/dL Magnesium 0.90 L* 1.40 L 1.20 L (1.7-2.3) mg/dL AST 126 H (5-40) units/L Alkaline Phosphatase 174 H (35-129) units/L Total Protein 6.2 L (6.3-8.2) g/dL Albumin 3.0 L (3.9-5) g/dL Lipase 129 H (13-60) units/L Medications & Allergies - Medications Allergies/Adverse Reactions: Allergies No Known Allergies Allergy (Unverified 04/24/20 12:30) Home Medications: Home Medications Medication Instructions Recorded Confirmed Last Taken Type Acetaminophen [Acetaminophen TAB] 650 mg PO Q4H PRN #20 tablet 05/06/20 05/23/20 Unknown Rx Folic Acid 1 mg PO DAILY #30 tablet 05/06/20 05/23/20 Unknown Rx HYDROcodone/APAP 7.5-325 [[place] 1 each PO Q4H PRN #14 tablet 05/06/20 05/23/20 Unknown Rx 7.5-325 mg TAB] Multivitamin 1 each PO DAILY #30 tablet 05/06/20 05/23/20 Unknown Rx Ondansetron [Zofran ODT TAB] 8 mg PO Q12HR #14 tab.rapdis 05/06/20 05/23/20 Unknown Rx Pantoprazole [Protonix TAB] 40 mg PO BIDAC #60 tablet 05/06/20 05/23/20 Unknown Rx Potassium Chloride [K-Dur] 20 meq PO BID #10 tab 05/06/20 05/23/20 Unknown Rx Thiamine [Vitamin B-1] 100 mg PO QDAY #30 tablet 05/06/20 05/23/20 Unknown Rx Active Medications: Generic Name Dose Route Start Last Admin Trade Name Freq PRN Reason Stop Dose Admin Acetaminophen 650 mg 05/20/20 11:50 05/20/20 18:31 Acetaminophen 325 Mg Tab PO 650 mg Q4H PRN Administration Pain MILD(1-3)/Fever >100.5/FREITAS Potassium Chloride 10 meq in 100 mls @ 100 mls/hr 05/23/20 09:30 05/23/20 11:21 Kcl 10meq/100ml IV 05/23/20 13:29 100 mls/hr Q1H TWIN Administration Levofloxacin 500 mg 05/23/20 11:00 05/23/20 11:21 Levofloxacin 500 Mg Tab PO 500 mg Q24HR TWIN Administration Protocol Morphine Sulfate 2 mg 05/20/20 11:50 05/23/20 11:21 Morphine 2 Mg/1 Ml Inj IV 2 mg Q4H PRN Administration Pain, Moderate (4-6) Ondansetron HCl 4 mg 05/20/20 11:50 05/21/20 23:19 Ondansetron 4 Mg/2 Ml Inj IV 4 mg Q8H PRN Administration Nausea And Vomiting Sodium Chloride 10 ml 05/20/20 22:00 05/23/20 10:01 Sodium Chloride 0.9% 10 Ml Flush Syringe IV 10 ml BID TWIN Administration Sodium Chloride 10 ml 05/20/20 11:50 Sodium Chloride 0.9% 10 Ml Flush Syringe IV PRN PRN LINE FLUSH HEART Score - HEART Score Troponin: Troponin T < 0.010 ng/mL (0.00-0.029) 05/20/20 06:43
--- NOTE | 2020-05-23 15:10 | Progress Note ---
Assessment and Plan Assessment and plan: Acute pancreatitis. Etiology secondary to EtOH. Patient will be maintained on bowel rest and kept n.p.o. IV fluid hydration, pain control and supportive care. Serial lipase levels. Colitis. CT scan reveals interval development of concentric mural thickening involving the transverse colon that may represent a developing mild infectious/inflammatory colitis. Patient was started on empiric antibiotics. Stool studies pending Abdominal pain. Etiology secondary to above. Anemia. Etiology likely secondary to chronic blood loss from alcoholic gastritis. Patient with no overt bleeding. PPI daily. Monitor H&H and transfuse for hemoglobin less than 7. Electrolyte abnormalities-hypokalemia and hypomagnesemia. Replete as needed DVT prophylaxis. SCDs. 05/21/2020. Patient with significant hypokalemia. Replete potassium IV and p.o. Check magnesium and replete as needed. Continue IV antibiotics of Levaquin and Flagyl for colitis. Lipase within normal limits. Follow stool studies. The patient has been counseled on the importance of alcohol cessation. Patient reports a fall injuring his right hand. Check right hand plain films. 05/22/2020. Still has electrolyte abnormalities. Magnesium and potassium replacement ordered. RN informed. Repeat BMP and magnesium by 9 PM. Order placed. Patient has been started on a diet today. Denies any diarrhea. Has soft stool. 05/23/2020. Still has had hypomag and hypokalemia.. Repleting potassium and magnesium. Patient is tolerating diet. Awaiting stool studies to rule out C. difficile. Patient has improved diarrhea. Repeat BMP later today replete. Discussed with ad taker who agrees History Interval history: No acute events overnight Still has electrolyte abnormalities-hypokalemia and hypomagnesemia Hospitalist Physical - Physical exam Narrative exam: VITAL SIGNS: Reviewed. GENERAL: Awake HEAD: No signs of head trauma. EYES: Pupils are equal. Extraocular motions intact. MOUTH: Oropharynx is normal. NECK: No adenopathy, no JVD. CHEST: Chest with diminished breath sounds bilaterally. No wheezes, rales, or rhonchi. CARDIAC: normal S1 and S2, without murmurs, gallops, or rubs. ABDOMEN: Soft, slight tenderness and non distended. No rebound or guarding, and no masses palpated. Bowel Sounds normal. MUSCULOSKELETAL: No edema NEUROLOGIC EXAM: Alert and oriented x3. No focal neurologic deficits SKIN: No obvious lesions - Constitutional Vitals: Temp Pulse Resp BP Pulse Ox 98.3 F 75 18 157/93 97 05/23/20 08:23 05/23/20 11:00 05/23/20 08:23 05/23/20 08:23 05/23/20 08:23 General appearance: Present: no acute distress HEART Score - HEART Score Troponin: Troponin T < 0.010 ng/mL (0.00-0.029) 05/20/20 06:43 Results - Labs CBC & Chem 7: 05/21/20 05:50 05/23/20 05:50 Labs: Laboratory Last Values WBC 8.6 K/mm3 (4.5-11.0) 05/21/20 05:50 RBC 2.73 M/mm3 (3.65-5.03) L 05/21/20 05:50 Hgb 8.7 gm/dl (11.8-15.2) L 05/21/20 05:50 Hct 25.7 % (35.5-45.6) L D 05/21/20 05:50 MCV 94 fl (84-94) 05/21/20 05:50 MCH 32 pg (28-32) 05/21/20 05:50 MCHC 34 % (32-34) 05/21/20 05:50 RDW 16.6 % (13.2-15.2) H 05/21/20 05:50 Plt Count 65 K/mm3 (140-440) L 05/21/20 05:50 Lymph % (Auto) 12.0 % (13.4-35.0) L 05/21/20 05:50 [place] % (Auto) 5.1 % (0.0-7.3) 05/21/20 05:50 Eos % (Auto) 1.1 % (0.0-4.3) 05/21/20 05:50 Baso % (Auto) 0.2 % (0.0-1.8) 05/21/20 05:50 Lymph # (Auto) 1.0 K/mm3 (1.2-5.4) L 05/21/20 05:50 [place] # (Auto) 0.4 K/mm3 (0.0-0.8) 05/21/20 05:50 Eos # (Auto) 0.1 K/mm3 (0.0-0.4) 05/21/20 05:50 Baso # (Auto) 0.0 K/mm3 (0.0-0.1) 05/21/20 05:50 Seg Neutrophils % 81.6 % (40.0-70.0) H 05/21/20 05:50 Seg Neutrophils # 7.0 K/mm3 (1.8-7.7) 05/21/20 05:50 PT 13.0 Sec. (12.2-14.9) 05/20/20 06:43 INR 1.00 (0.87-1.13) 05/20/20 06:43 APTT 27.5 Sec. (24.2-36.6) 05/20/20 06:43 Sodium 135 mmol/L (137-145) L 05/23/20 05:50 Potassium 2.8 mmol/L (3.6-5.0) L* 05/23/20 05:50 Chloride 96.1 mmol/L (98-107) L 05/23/20 05:50 Carbon Dioxide 27 mmol/L (22-30) 05/23/20 05:50 Anion Gap 15 mmol/L 05/23/20 05:50 BUN 3 mg/dL (9-20) L 05/23/20 05:50 Creatinine 0.5 mg/dL (0.8-1.3) L 05/23/20 05:50 Estimated GFR > 60 ml/min 05/23/20 05:50 BUN/Creatinine Ratio 6 % 05/23/20 05:50 Glucose 136 mg/dL (75-100) H 05/23/20 05:50 Lactic Acid 3.20 mmol/L (0.7-2.0) H* 05/20/20 07:46 Calcium 8.0 mg/dL (8.4-10.2) L 05/23/20 05:50 Magnesium 1.20 mg/dL (1.7-2.3) L 05/23/20 05:50 Total Bilirubin 0.60 mg/dL (0.1-1.2) 05/23/20 05:50 AST 126 units/L (5-40) H 05/23/20 05:50 ALT 37 units/L (7-56) 05/23/20 05:50 Alkaline Phosphatase 174 units/L (35-129) H 05/23/20 05:50 Total Creatine Kinase 215 units/L (55-170) H 05/20/20 06:43 CK-MB (CK-2) 1.2 ng/mL (0.0-4.0) 05/20/20 06:43 CK-MB (CK-2) Rel Index 0.5 (0-4) 05/20/20 06:43 Troponin T < 0.010 ng/mL (0.00-0.029) 05/20/20 06:43 NT-Pro-B Natriuret Pep 117.3 pg/mL (0-450) 05/20/20 06:43 Total Protein 6.2 g/dL (6.3-8.2) L 05/23/20 05:50 Albumin 3.0 g/dL (3.9-5) L 05/23/20 05:50 Albumin/Globulin Ratio 0.9 % 05/23/20 05:50 Lipase 129 units/L (13-60) H 05/23/20 05:50 Urine Color Cherry (Yellow) 05/20/20 Unknown Urine Color Cherry (Yellow) 05/20/20 Unknown Urine Turbidity Clear (Clear) 05/20/20 Unknown Urine Turbidity Cloudy (Clear) 05/20/20 Unknown Urine pH 6.0 (5.0-7.0) 05/20/20 Unknown Urine pH 7.0 (5.0-7.0) 05/20/20 Unknown Ur Specific [place] 1.022 (1.003-1.030) 05/20/20 Unknown Ur Specific [place] 1.055 (1.003-1.030) H 05/20/20 Unknown Urine Protein >500 mg/dL (Negative) 05/20/20 Unknown Urine Protein >500 mg/dL (Negative) 05/20/20 Unknown Urine Glucose (UA) Neg mg/dL (Negative) 05/20/20 Unknown Urine Glucose (UA) Neg mg/dL (Negative) 05/20/20 Unknown Urine Ketones Neg mg/dL (Negative) 05/20/20 Unknown Urine Ketones Neg mg/dL (Negative) 05/20/20 Unknown Urine Blood Neg (Negative) 05/20/20 Unknown Urine Blood Sm (Negative) 05/20/20 Unknown Urine Nitrite Neg (Negative) 05/20/20 Unknown Urine Nitrite Neg (Negative) 05/20/20 Unknown Urine Bilirubin Neg (Negative) 05/20/20 Unknown Urine Bilirubin Sm (Negative) 05/20/20 Unknown Urine Ictotest Positive (Negative) 05/20/20 Unknown Urine Urobilinogen 4.0 mg/dL (<2.0) 05/20/20 Unknown Urine Urobilinogen 4.0 mg/dL (<2.0) 05/20/20 Unknown Ur Leukocyte Esterase Neg (Negative) 05/20/20 Unknown Ur Leukocyte Esterase Neg (Negative) 05/20/20 Unknown Urine WBC (Auto) 2.0 /HPF (0.0-6.0) 05/20/20 Unknown Urine WBC (Auto) 7.0 /HPF (0.0-6.0) H 05/20/20 Unknown Urine RBC (Auto) 4.0 /HPF (0.0-6.0) 05/20/20 Unknown Urine RBC (Auto) 6.0 /HPF (0.0-6.0) 05/20/20 Unknown U Epithel Cells (Auto) 1.0 /HPF (0-13.0) 05/20/20 Unknown U Epithel Cells (Auto) 3.0 /HPF (0-13.0) 05/20/20 Unknown Urine Bacteria (Auto) 1+ /HPF (Negative) 05/20/20 Unknown Hyaline Casts 5 /LPF 05/20/20 Unknown Urine Mucus 3+ /HPF 05/20/20 Unknown Urine Opiates Screen Positive 05/20/20 Unknown Urine Methadone Screen Negative 05/20/20 Unknown Ur Barbiturates Screen Negative 05/20/20 Unknown Ur Phencyclidine Scrn Negative 05/20/20 Unknown Ur Amphetamines Screen Negative 05/20/20 Unknown U Benzodiazepines Scrn Negative 05/20/20 Unknown Urine Cocaine Screen Negative 05/20/20 Unknown U Marijuana (THC) Screen Negative 05/20/20 Unknown Drugs of Abuse Note Disclamer 05/20/20 Unknown Plasma/Serum Alcohol < 0.01 % (0-0.07) 05/20/20 06:43 Blood Type B POSITIVE 05/20/20 06:43 Antibody Screen Negative 05/20/20 06:43 Microbiology: Microbiology 05/21/20 Unknown Nares - Right MRSA Culture - Final Heard/IV: Voiding Method Urinal IV Catheter Type [Right Hand] Peripheral IV IV Catheter Type [Right Peripheral IV Antecubital] Active Medications - Current Medications Current Medications: Generic Name Dose Route Start Last Admin Trade Name Freq PRN Reason Stop Dose Admin Acetaminophen 650 mg 05/20/20 11:50 05/20/20 18:31 Acetaminophen 325 Mg Tab PO 650 mg Q4H PRN Administration Pain MILD(1-3)/Fever >100.5/FREITAS Levofloxacin 500 mg 05/23/20 11:00 05/23/20 11:21 Levofloxacin 500 Mg Tab PO 500 mg Q24HR TWIN Administration Protocol Morphine Sulfate 2 mg 05/20/20 11:50 05/23/20 11:21 Morphine 2 Mg/1 Ml Inj IV 2 mg Q4H PRN Administration Pain, Moderate (4-6) Ondansetron HCl 4 mg 05/20/20 11:50 05/21/20 23:19 Ondansetron 4 Mg/2 Ml Inj IV 4 mg Q8H PRN Administration Nausea And Vomiting Sodium Chloride 10 ml 05/20/20 22:00 05/23/20 10:01 Sodium Chloride 0.9% 10 Ml Flush Syringe IV 10 ml BID TWIN Administration Sodium Chloride 10 ml 05/20/20 11:50 Sodium Chloride 0.9% 10 Ml Flush Syringe IV PRN PRN LINE FLUSH Nutrition/Malnutrition Assess - Dietary Evaluation Nutrition/Malnutrition Findings: Nutrition Notes Start: 05/22/20 13:18 Freq: Status: Active Protocol: Document 05/22/20 13:18 EN (Rec: 05/22/20 13:29 EN [email or web address]) Co-Sign 05/22/20 13:18 MK Nutrition Notes Need for Assessment generated from: Low BMI Initial or Follow up Assessment Other Pertinent Diagnosis Pancreatitis, Etoh abuse, colitis, hypokalemia, anemia Current Diet Clear liquid Labs/Tests Na 134 K+ 2.9 Mag 0.9 Pertinent Medications Reviewed Height 5 ft 10 in Weight 56.5 kg Usual Body Weight 75 kg [place] Body Weight (kg) 75.45 BMI 17.9 Intake Prior to Admission Fair Weight change and time frame 25% weight loss in 8 months Weight Status Underweight Subjective/Other Information Pt screened for low BMI. Pt reports UBW of 165lbs 8 months ago. Pt states that he has abdominal pain which caused him to not eat for 2 days [employer]. Pt denies N/V/D and states that he has a good appetite. Pt is requested a regular diet . Pt was NPO this morning. Pt was ordered a clear liquid diet for lunch, but RN states that MD will likely upgrade diet for dinner. Pt would like ONS. Percent of energy/protein needs met: 0%/0% Burn Absent Trauma Absent GI Symptoms None Food Allergy No Current % PO Negligible Minimum of two criteria Yes Interpretation of Weight Loss (severe) >10% in 6 months Reduced General Operations Agent Strength Measurably Reduced (severe) #2 Nutrition Diagnosis Inadequate oral intake Etiology Pancreatitis and colitis As Evidenced by Signs and Symptoms Pt on clear liquid diet #1 Nutrition Diagnosis Malnutrition Etiology abdominal pain and pancreatitis As Evidenced by Signs and Symptoms 25% weight loss in 8 months and weak frame catcher strength Is patient on ventilator? No Is Patient Ambulatory and/or Out of Bed Yes [facility]amb[facility]/OOB) [ 1919.125 [id number]] Kcal/Kg value to use for calculation 39 Approximate Energy Requirements Using 2204 kcal/Kg Calculation Used for Recommendations Kcal/kg Additional Notes Protein: 1.2-1.5g/kg (68-85g) Fluid: 1 ml/kcal Nutrition Intervention Change Diet Order: Advance diet when medically advised Add Supplement/Snack (indicate name/kcal Ensure Clear TID /protein ) Provides kCal: 720 Provides Protein (gm) 24 Goal #1 Diet Advancement Goal #2 Meet 75% of energy and protein needs via PO and ONS Goal #3 Weight gain/maintenance Anticipated Discharge Needs: Unable to determine at this time Follow-Up By: 05/24/20 Additional Comments F/u for diet advancement, intakes and ONS tolerance
[2020-05-23 16:28] LABS: Blood Urea Nitrogen 2 mg/dL (9-20); Calcium 8.4 mg/dL (8.4-10.2); Hemolysis Index 4
[2020-05-23 16:33] LABS: BUN/Creatinine Ratio 3
[2020-05-24] MEDS: MORPHINE 2 MG/1 ML INJ IV PRN ×2 (02:39→23:38)
[2020-05-24] MEDS ORDERED: POTASSIUM CHLORIDE ER 20 MEQ TAB PO SCH (09:00)
[2020-05-24] MEDS: levoFLOXacin 500 MG TAB PO SCH (09:55)
[2020-05-24] MEDS: oxyCODONE /ACETAMINOPHEN 5-325MG TAB PO PRN ×2 (11:25→18:29)
[2020-05-24] MEDS: amLODIPine 10 MG TAB PO SCH (11:26)
--- NOTE | 2020-05-24 11:46 | Progress Note ---
Assessment and Plan 1. Colitis - etiology unclear. No stool studies available. Improving on abx. Acute onset, likely infectious, doubt ischemic. Consider C diff. - change to oral abx, and D/C home once lytes improved - follow up on stool studies Subjective Date of service: 05/24/20 Interval history: Pt states he is better today. Perhaps 3 BMs today, loose. No blood. Hoping to go home today. Objective - Constitutional Vitals: Vital Signs - 12hr 05/24/20 05/24/20 05/24/20 02:39 04:03 07:00 Temperature 98 F Pulse Rate 69 Respiratory 18 16 18 Rate Blood Pressure Blood Pressure 162/86 [Left] O2 Sat by Pulse 100 100 Oximetry 05/24/20 05/24/20 08:00 11:26 Temperature 98.4 F Pulse Rate 69 69 Respiratory Rate Blood Pressure 162/86 Blood Pressure 162/86 [Left] O2 Sat by Pulse Oximetry General appearance: Present: no acute distress - EENT Eyes: PERRL, EOM intact ENT: hearing intact - Respiratory Respiratory effort: normal - Gastrointestinal General gastrointestinal: Present: soft, non-tender - Labs CBC & Chem 7: 05/21/20 05:50 05/23/20 14:44 Labs: Abnormal lab results 05/23/20 Range/Units 14:44 Sodium 136 L (137-145) mmol/L Potassium 3.4 L D (3.6-5.0) mmol/L Chloride 97.3 L (98-107) mmol/L Carbon Dioxide 32 H (22-30) mmol/L BUN 2 L (9-20) mg/dL Creatinine 0.6 L (0.8-1.3) mg/dL Medications & Allergies - Medications Allergies/Adverse Reactions: Allergies No Known Allergies Allergy (Unverified 04/24/20 12:30) Home Medications: Home Medications Medication Instructions Recorded Confirmed Last Taken Type Acetaminophen [Acetaminophen TAB] 650 mg PO Q4H PRN #20 tablet 05/06/20 05/23/20 Unknown Rx Folic Acid 1 mg PO DAILY #30 tablet 05/06/20 05/23/20 Unknown Rx HYDROcodone/APAP 7.5-325 [[place] 1 each PO Q4H PRN #14 tablet 05/06/20 05/23/20 Unknown Rx 7.5-325 mg TAB] Multivitamin 1 each PO DAILY #30 tablet 05/06/20 05/23/20 Unknown Rx Ondansetron [Zofran ODT TAB] 8 mg PO Q12HR #14 tab.rapdis 05/06/20 05/23/20 Unknown Rx Pantoprazole [Protonix TAB] 40 mg PO BIDAC #60 tablet 05/06/20 05/23/20 Unknown Rx Potassium Chloride [K-Dur] 20 meq PO BID #10 tab 05/06/20 05/23/20 Unknown Rx Thiamine [Vitamin B-1] 100 mg PO QDAY #30 tablet 05/06/20 05/23/20 Unknown Rx Active Medications: Generic Name Dose Route Start Last Admin Trade Name Freq PRN Reason Stop Dose Admin Acetaminophen 650 mg 05/20/20 11:50 05/20/20 18:31 Acetaminophen 325 Mg Tab PO 650 mg Q4H PRN Administration Pain MILD(1-3)/Fever >100.5/FREITAS Amlodipine Besylate 10 mg 05/24/20 11:00 05/24/20 11:26 Amlodipine 10 Mg Tab PO 10 mg QDAY TWIN Administration Levofloxacin 500 mg 05/23/20 11:00 05/24/20 09:55 Levofloxacin 500 Mg Tab PO 500 mg Q24HR TWIN Administration Protocol Morphine Sulfate 2 mg 05/20/20 11:50 05/24/20 02:39 Morphine 2 Mg/1 Ml Inj IV 2 mg Q4H PRN Administration Pain, Moderate (4-6) Ondansetron HCl 4 mg 05/20/20 11:50 05/21/20 23:19 Ondansetron 4 Mg/2 Ml Inj IV 4 mg Q8H PRN Administration Nausea And Vomiting Oxycodone/Acetaminophen 1 tab 05/24/20 10:38 05/24/20 11:25 Oxycodone /Acetaminophen 5-325mg Tab PO 1 tab Q6H PRN Administration Pain, Moderate (4-6) Sodium Chloride 10 ml 05/20/20 22:00 05/24/20 09:56 Sodium Chloride 0.9% 10 Ml Flush Syringe IV 10 ml BID TWIN Administration Sodium Chloride 10 ml 05/20/20 11:50 05/24/20 02:40 Sodium Chloride 0.9% 10 Ml Flush Syringe IV 10 ml PRN PRN Administration LINE FLUSH HEART Score - HEART Score Troponin: Troponin T < 0.010 ng/mL (0.00-0.029) 05/20/20 06:43
--- NOTE | 2020-05-24 14:22 | Progress Note ---
Assessment and Plan Assessment and plan: Acute pancreatitis. Etiology secondary to EtOH. Patient will be maintained on bowel rest and kept n.p.o. IV fluid hydration, pain control and supportive care. Serial lipase levels. Colitis. CT scan reveals interval development of concentric mural thickening involving the transverse colon that may represent a developing mild infectious/inflammatory colitis. Patient was started on empiric antibiotics. Stool studies pending Abdominal pain. Etiology secondary to above. Anemia. Etiology likely secondary to chronic blood loss from alcoholic gastritis. Patient with no overt bleeding. PPI daily. Monitor H&H and transfuse for hemoglobin less than 7. Electrolyte abnormalities-hypokalemia and hypomagnesemia. Replete as needed DVT prophylaxis. SCDs. 05/21/2020. Patient with significant hypokalemia. Replete potassium IV and p.o. Check magnesium and replete as needed. Continue IV antibiotics of Levaquin and Flagyl for colitis. Lipase within normal limits. Follow stool studies. The patient has been counseled on the importance of alcohol cessation. Patient reports a fall injuring his right hand. Check right hand plain films. 05/22/2020. Still has electrolyte abnormalities. Magnesium and potassium replacement ordered. RN informed. Repeat BMP and magnesium by 9 PM. Order placed. Patient has been started on a diet today. Denies any diarrhea. Has soft stool. 05/23/2020. Still has had hypomag and hypokalemia.. Repleting potassium and magnesium. Patient is tolerating diet. Awaiting stool studies to rule out C. difficile. Patient has improved diarrhea. Repeat BMP later today replete. Discussed with personal consultant who agrees 05/24/2020. Lipase, magnesium and BMP still pending. GI following. Denies diarrhea. He is tolerating diet. History Interval history: No acute events overnight Has abdominal pain. Awaiting BMP, lipase and magnesium levels Hospitalist Physical - Physical exam Narrative exam: VITAL SIGNS: Reviewed. GENERAL: Awake HEAD: No signs of head trauma. EYES: Pupils are equal. Extraocular motions intact. MOUTH: Oropharynx is normal. NECK: No adenopathy, no JVD. CHEST: Chest with diminished breath sounds bilaterally. No wheezes, rales, or rhonchi. CARDIAC: normal S1 and S2, without murmurs, gallops, or rubs. ABDOMEN: Soft, slight tenderness and non distended. No rebound or guarding, and no masses palpated. Bowel Sounds normal. MUSCULOSKELETAL: No edema NEUROLOGIC EXAM: Alert and oriented x3. No focal neurologic deficits SKIN: No obvious lesions - Constitutional Vitals: Temp Pulse Resp BP Pulse Ox 98.5 F 87 18 143/88 98 05/24/20 12:16 05/24/20 12:16 05/24/20 12:16 05/24/20 12:16 05/24/20 12:16 HEART Score - HEART Score Troponin: Troponin T < 0.010 ng/mL (0.00-0.029) 05/20/20 06:43 Results - Labs CBC & Chem 7: 05/21/20 05:50 05/23/20 14:44 Labs: Laboratory Last Values WBC 8.6 K/mm3 (4.5-11.0) 05/21/20 05:50 RBC 2.73 M/mm3 (3.65-5.03) L 05/21/20 05:50 Hgb 8.7 gm/dl (11.8-15.2) L 05/21/20 05:50 Hct 25.7 % (35.5-45.6) L D 05/21/20 05:50 MCV 94 fl (84-94) 05/21/20 05:50 MCH 32 pg (28-32) 05/21/20 05:50 MCHC 34 % (32-34) 05/21/20 05:50 RDW 16.6 % (13.2-15.2) H 05/21/20 05:50 Plt Count 65 K/mm3 (140-440) L 05/21/20 05:50 Lymph % (Auto) 12.0 % (13.4-35.0) L 05/21/20 05:50 [place] % (Auto) 5.1 % (0.0-7.3) 05/21/20 05:50 Eos % (Auto) 1.1 % (0.0-4.3) 05/21/20 05:50 Baso % (Auto) 0.2 % (0.0-1.8) 05/21/20 05:50 Lymph # (Auto) 1.0 K/mm3 (1.2-5.4) L 05/21/20 05:50 [place] # (Auto) 0.4 K/mm3 (0.0-0.8) 05/21/20 05:50 Eos # (Auto) 0.1 K/mm3 (0.0-0.4) 05/21/20 05:50 Baso # (Auto) 0.0 K/mm3 (0.0-0.1) 05/21/20 05:50 Seg Neutrophils % 81.6 % (40.0-70.0) H 05/21/20 05:50 Seg Neutrophils # 7.0 K/mm3 (1.8-7.7) 05/21/20 05:50 PT 13.0 Sec. (12.2-14.9) 05/20/20 06:43 INR 1.00 (0.87-1.13) 05/20/20 06:43 APTT 27.5 Sec. (24.2-36.6) 05/20/20 06:43 Sodium 136 mmol/L (137-145) L 05/23/20 14:44 Potassium 3.4 mmol/L (3.6-5.0) L D 05/23/20 14:44 Chloride 97.3 mmol/L (98-107) L 05/23/20 14:44 Carbon Dioxide 32 mmol/L (22-30) H 05/23/20 14:44 Anion Gap 10 mmol/L 05/23/20 14:44 BUN 2 mg/dL (9-20) L 05/23/20 14:44 Creatinine 0.6 mg/dL (0.8-1.3) L 05/23/20 14:44 Estimated GFR > 60 ml/min 05/23/20 14:44 BUN/Creatinine Ratio 3 % 05/23/20 14:44 Glucose 90 mg/dL (75-100) 05/23/20 14:44 Lactic Acid 3.20 mmol/L (0.7-2.0) H* 05/20/20 07:46 Calcium 8.4 mg/dL (8.4-10.2) 05/23/20 14:44 Magnesium 1.20 mg/dL (1.7-2.3) L 05/23/20 05:50 Total Bilirubin 0.60 mg/dL (0.1-1.2) 05/23/20 05:50 AST 126 units/L (5-40) H 05/23/20 05:50 ALT 37 units/L (7-56) 05/23/20 05:50 Alkaline Phosphatase 174 units/L (35-129) H 05/23/20 05:50 Total Creatine Kinase 215 units/L (55-170) H 05/20/20 06:43 CK-MB (CK-2) 1.2 ng/mL (0.0-4.0) 05/20/20 06:43 CK-MB (CK-2) Rel Index 0.5 (0-4) 05/20/20 06:43 Troponin T < 0.010 ng/mL (0.00-0.029) 05/20/20 06:43 NT-Pro-B Natriuret Pep 117.3 pg/mL (0-450) 05/20/20 06:43 Total Protein 6.2 g/dL (6.3-8.2) L 05/23/20 05:50 Albumin 3.0 g/dL (3.9-5) L 05/23/20 05:50 Albumin/Globulin Ratio 0.9 % 05/23/20 05:50 Lipase 129 units/L (13-60) H 05/23/20 05:50 Urine Color Cherry (Yellow) 05/20/20 Unknown Urine Color Cherry (Yellow) 05/20/20 Unknown Urine Turbidity Clear (Clear) 05/20/20 Unknown Urine Turbidity Cloudy (Clear) 05/20/20 Unknown Urine pH 6.0 (5.0-7.0) 05/20/20 Unknown Urine pH 7.0 (5.0-7.0) 05/20/20 Unknown Ur Specific [place] 1.022 (1.003-1.030) 05/20/20 Unknown Ur Specific [place] 1.055 (1.003-1.030) H 05/20/20 Unknown Urine Protein >500 mg/dL (Negative) 05/20/20 Unknown Urine Protein >500 mg/dL (Negative) 05/20/20 Unknown Urine Glucose (UA) Neg mg/dL (Negative) 05/20/20 Unknown Urine Glucose (UA) Neg mg/dL (Negative) 05/20/20 Unknown Urine Ketones Neg mg/dL (Negative) 05/20/20 Unknown Urine Ketones Neg mg/dL (Negative) 05/20/20 Unknown Urine Blood Neg (Negative) 05/20/20 Unknown Urine Blood Sm (Negative) 05/20/20 Unknown Urine Nitrite Neg (Negative) 05/20/20 Unknown Urine Nitrite Neg (Negative) 05/20/20 Unknown Urine Bilirubin Neg (Negative) 05/20/20 Unknown Urine Bilirubin Sm (Negative) 05/20/20 Unknown Urine Ictotest Positive (Negative) 05/20/20 Unknown Urine Urobilinogen 4.0 mg/dL (<2.0) 05/20/20 Unknown Urine Urobilinogen 4.0 mg/dL (<2.0) 05/20/20 Unknown Ur Leukocyte Esterase Neg (Negative) 05/20/20 Unknown Ur Leukocyte Esterase Neg (Negative) 05/20/20 Unknown Urine WBC (Auto) 2.0 /HPF (0.0-6.0) 05/20/20 Unknown Urine WBC (Auto) 7.0 /HPF (0.0-6.0) H 05/20/20 Unknown Urine RBC (Auto) 4.0 /HPF (0.0-6.0) 05/20/20 Unknown Urine RBC (Auto) 6.0 /HPF (0.0-6.0) 05/20/20 Unknown U Epithel Cells (Auto) 1.0 /HPF (0-13.0) 05/20/20 Unknown U Epithel Cells (Auto) 3.0 /HPF (0-13.0) 05/20/20 Unknown Urine Bacteria (Auto) 1+ /HPF (Negative) 05/20/20 Unknown Hyaline Casts 5 /LPF 05/20/20 Unknown Urine Mucus 3+ /HPF 05/20/20 Unknown Urine Opiates Screen Positive 05/20/20 Unknown Urine Methadone Screen Negative 05/20/20 Unknown Ur Barbiturates Screen Negative 05/20/20 Unknown Ur Phencyclidine Scrn Negative 05/20/20 Unknown Ur Amphetamines Screen Negative 05/20/20 Unknown U Benzodiazepines Scrn Negative 05/20/20 Unknown Urine Cocaine Screen Negative 05/20/20 Unknown U Marijuana (THC) Screen Negative 05/20/20 Unknown Drugs of Abuse Note Disclamer 05/20/20 Unknown Plasma/Serum Alcohol < 0.01 % (0-0.07) 05/20/20 06:43 Blood Type B POSITIVE 05/20/20 06:43 Antibody Screen Negative 05/20/20 06:43 Microbiology: Microbiology 05/21/20 Unknown Nares - Right MRSA Culture - Final Heard/IV: Voiding Method Toilet IV Catheter Type [Right Hand] Peripheral IV IV Catheter Type [Right Peripheral IV Antecubital] Active Medications - Current Medications Current Medications: Generic Name Dose Route Start Last Admin Trade Name Freq PRN Reason Stop Dose Admin Acetaminophen 650 mg 05/20/20 11:50 05/20/20 18:31 Acetaminophen 325 Mg Tab PO 650 mg Q4H PRN Administration Pain MILD(1-3)/Fever >100.5/FREITAS Amlodipine Besylate 10 mg 05/24/20 11:00 05/24/20 11:26 Amlodipine 10 Mg Tab PO 10 mg QDAY TWIN Administration Levofloxacin 500 mg 05/23/20 11:00 05/24/20 09:55 Levofloxacin 500 Mg Tab PO 500 mg Q24HR TWIN Administration Protocol Morphine Sulfate 2 mg 05/20/20 11:50 05/24/20 02:39 Morphine 2 Mg/1 Ml Inj IV 2 mg Q4H PRN Administration Pain, Moderate (4-6) Ondansetron HCl 4 mg 05/20/20 11:50 05/21/20 23:19 Ondansetron 4 Mg/2 Ml Inj IV 4 mg Q8H PRN Administration Nausea And Vomiting Oxycodone/Acetaminophen 1 tab 05/24/20 10:38 05/24/20 11:25 Oxycodone /Acetaminophen 5-325mg Tab PO 1 tab Q6H PRN Administration Pain, Moderate (4-6) Sodium Chloride 10 ml 05/20/20 22:00 05/24/20 09:56 Sodium Chloride 0.9% 10 Ml Flush Syringe IV 10 ml BID TWIN Administration Sodium Chloride 10 ml 05/20/20 11:50 05/24/20 02:40 Sodium Chloride 0.9% 10 Ml Flush Syringe IV 10 ml PRN PRN Administration LINE FLUSH Nutrition/Malnutrition Assess - Dietary Evaluation Nutrition/Malnutrition Findings: Nutrition Notes Start: 05/22/20 13:18 Freq: Status: Active Protocol: Document 05/24/20 13:00 CW (Rec: 05/24/20 13:10 CW [email or web address]) Co-Sign 05/24/20 13:00 LM Nutrition Notes Initial or Follow up Assessment Other Pertinent Diagnosis Pancreatitis, Etoh abuse, colitis, hypokalemia, anemia, GI bleed, gastritis Current Diet GI soft Labs/Tests Na 136 K 3.4 Pertinent Medications reviewed Height 5 ft 10 in Weight 58.2 kg [place] Body Weight (kg) 75.45 BMI 18.3 Intake Prior to Admission Fair Weight change and time frame Wt gain noted Weight Status Underweight Subjective/Other Information FU for diet advancement, intakes, ONS. Pt reports 100% PO breakfast and 100% PO on with an increased overall appetite. Per chart pt hx of consecutive loose stools, pt denies loose stools or N/V/D. Ordered Phos Stat labs. Pt ONS preferences recorded. Percent of energy/protein needs met: 90%/100% Burn Absent Trauma Absent GI Symptoms None Food Allergy No Current % PO Good (75-100%) Minimum of two criteria Yes Interpretation of Weight Loss (severe) >10% in 6 months Reduced [employer] In [employer] Strength Measurably Reduced (severe) #2 Nutrition Diagnosis Inadequate oral intake As Evidenced by Signs and Symptoms Pt diet advanced and consuming 100% PO Diagnosis Progress(for reassessment Improved documentation) #1 Nutrition Diagnosis Malnutrition Diagnosis Progress(for reassessment Continues documentation) Is patient on ventilator? No Is Patient Ambulatory and/or Out of Bed Yes REE-([facility]-ambulatory/OOB) [ 1941.225 [id number]] Kcal/Kg value to use for calculation 38 Approximate Energy Requirements Using 2212 kcal/Kg Calculation Used for Recommendations Kcal/kg Additional Notes Protein: 1.2-1.5g/kg (69-86g) Fluid: 1 ml/kcal Nutrition Intervention Change Diet Order: Advance diet when medically advised Add Supplement/Snack (indicate name/kcal D/C /protein ) Goal #1 Diet Advancement Goal #2 Meet 80% of energy and protein needs via PO Goal #3 Weight gain/maintenance Anticipated Discharge Needs: Unable to determine at this time Follow-Up By: 05/22/20 Additional Comments FU for intakes, diet advancement
[2020-05-24 15:56] LABS: Blood Urea Nitrogen 2 mg/dL (9-20); Calcium 9.1 mg/dL (8.4-10.2); Hemolysis Index 0
[2020-05-24 16:13] LABS: BUN/Creatinine Ratio 3
[2020-05-24] MEDS ORDERED: MAGNESIUM SULFATE 2 GM/50 ML BAG IV ONE (18:26)
[2020-05-24] MEDS ORDERED: POTASSIUM CHLORIDE ER 20 MEQ TAB PO ONE (18:26)
[2020-05-24] MEDS: SODIUM CHLORIDE 0.9% 1000 ML 1,000 ML IV SCH (18:28)
[2020-05-25] MEDS: SODIUM CHLORIDE 0.9% 1000 ML 1,000 ML IV SCH ×2 (02:01→11:20)
[2020-05-25] MEDS: oxyCODONE /ACETAMINOPHEN 5-325MG TAB PO PRN ×2 (04:09→10:05)
[2020-05-25 06:12] LABS: Blood Urea Nitrogen 3 mg/dL (9-20); Calcium 8.5 mg/dL (8.4-10.2); Hemolysis Index 0
[2020-05-25 06:20] LABS: BUN/Creatinine Ratio 6
[2020-05-25] MEDS ORDERED: MAGNESIUM SULFATE 2 GM/50 ML BAG IV SCH (09:00)
[2020-05-25] MEDS: levoFLOXacin 500 MG TAB PO SCH (09:57)
[2020-05-25] MEDS: amLODIPine 10 MG TAB PO SCH (09:58)
[2020-05-25] MEDS: POTASSIUM CHLORIDE 10 MEQ 10 MEQ/100 ML BAG IV SCH ×4 (09:59→13:50)
[2020-05-25 10:45] LABS: Blood Urea Nitrogen 2 mg/dL (9-20); Calcium 8.5 mg/dL (8.4-10.2); Hemolysis Index 4
[2020-05-25 10:47] LABS: BUN/Creatinine Ratio 4
--- NOTE | 2020-05-25 10:51 | Progress Note ---
Assessment and Plan 1. Colitis - etiology unclear. No stool studies available. Symptoms resolved. Acute onset, likely infectious. - change to oral abx, and D/C home once lytes improved No further GI recommendations. Will sign off. Subjective Date of service: 05/25/20 Interval history: Pt states he is doing well. Had 3 formed BMs yesterday, asmita. Objective - Constitutional Vitals: Vital Signs - 12hr 05/24/20 05/24/20 05/25/20 23:21 23:38 03:54 Temperature 98.1 F 98.2 F Pulse Rate 83 80 Respiratory 14 18 16 Rate Blood Pressure 151/94 167/97 O2 Sat by Pulse 100 100 Oximetry 05/25/20 05/25/20 05/25/20 04:09 05:09 06:00 Temperature Pulse Rate 83 Respiratory 18 18 Rate Blood Pressure O2 Sat by Pulse Oximetry 05/25/20 08:33 Temperature 99.0 F Pulse Rate 72 Respiratory 18 Rate Blood Pressure 151/84 O2 Sat by Pulse 100 Oximetry General appearance: Present: no acute distress - EENT Eyes: PERRL, EOM intact ENT: hearing intact - Respiratory Respiratory effort: normal - Gastrointestinal General gastrointestinal: Present: soft, non-tender - Labs CBC & Chem 7: 05/21/20 05:50 05/25/20 09:39 Labs: Abnormal lab results 05/24/20 05/24/20 05/25/20 Range/Units 15:02 15:02 05:20 Sodium 134 L (137-145) mmol/L Potassium 3.3 L (3.6-5.0) mmol/L BUN 2 L 3 L (9-20) mg/dL Creatinine 0.6 L 0.5 L (0.8-1.3) mg/dL Glucose 109 H 102 H (75-100) mg/dL Magnesium 1.30 L 1.30 L (1.7-2.3) mg/dL Alkaline Phosphatase 173 H (35-129) units/L Lipase 141 H 135 H (13-60) units/L 05/25/20 Range/Units 09:39 Sodium 136 L (137-145) mmol/L Potassium 3.0 L (3.6-5.0) mmol/L BUN 2 L (9-20) mg/dL Creatinine 0.5 L (0.8-1.3) mg/dL Glucose 133 H (75-100) mg/dL Magnesium (1.7-2.3) mg/dL Alkaline Phosphatase (35-129) units/L Lipase (13-60) units/L Medications & Allergies - Medications Allergies/Adverse Reactions: Allergies No Known Allergies Allergy (Unverified 04/24/20 12:30) Home Medications: Home Medications Medication Instructions Recorded Confirmed Last Taken Type Acetaminophen [Acetaminophen TAB] 650 mg PO Q4H PRN #20 tablet 05/06/20 05/23/20 Unknown Rx Folic Acid 1 mg PO DAILY #30 tablet 05/06/20 05/23/20 Unknown Rx HYDROcodone/APAP 7.5-325 [[place] 1 each PO Q4H PRN #14 tablet 05/06/20 05/23/20 Unknown Rx 7.5-325 mg TAB] Multivitamin 1 each PO DAILY #30 tablet 05/06/20 05/23/20 Unknown Rx Ondansetron [Zofran ODT TAB] 8 mg PO Q12HR #14 tab.rapdis 05/06/20 05/23/20 Unknown Rx Pantoprazole [Protonix TAB] 40 mg PO BIDAC #60 tablet 05/06/20 05/23/20 Unknown Rx Potassium Chloride [K-Dur] 20 meq PO BID #10 tab 05/06/20 05/23/20 Unknown Rx Thiamine [Vitamin B-1] 100 mg PO QDAY #30 tablet 05/06/20 05/23/20 Unknown Rx Active Medications: Generic Name Dose Route Start Last Admin Trade Name Freq PRN Reason Stop Dose Admin Acetaminophen 650 mg 05/20/20 11:50 05/20/20 18:31 Acetaminophen 325 Mg Tab PO 650 mg Q4H PRN Administration Pain MILD(1-3)/Fever >100.5/FREITAS Amlodipine Besylate 10 mg 05/24/20 11:00 05/25/20 09:58 Amlodipine 10 Mg Tab PO 10 mg QDAY TWIN Administration Sodium Chloride 1,000 mls @ 125 mls/hr 05/24/20 18:30 05/25/20 02:01 Nacl 0.9% 1000 Ml IV 125 mls/hr DIRECT TWIN Administration Potassium Chloride 10 meq in 100 mls @ 100 mls/hr 05/25/20 09:00 05/25/20 09:59 Kcl 10meq/100ml IV 05/25/20 12:59 100 mls/hr Q1H TWIN Administration Magnesium Sulfate 2 gm in 50 mls @ 25 mls/hr 05/25/20 09:00 05/25/20 09:58 Magnesium Sulfate 2gm/50ml IV 05/25/20 11:00 25 mls/hr ONCE TWIN Administration Levofloxacin 500 mg 05/23/20 11:00 05/25/20 09:57 Levofloxacin 500 Mg Tab PO 05/30/20 10:59 500 mg Q24HR TWIN Administration Protocol Morphine Sulfate 2 mg 05/20/20 11:50 05/24/20 23:38 Morphine 2 Mg/1 Ml Inj IV 2 mg Q4H PRN Administration Pain, Moderate (4-6) Ondansetron HCl 4 mg 05/20/20 11:50 05/21/20 23:19 Ondansetron 4 Mg/2 Ml Inj IV 4 mg Q8H PRN Administration Nausea And Vomiting Oxycodone/Acetaminophen 1 tab 05/24/20 10:38 05/25/20 10:05 Oxycodone /Acetaminophen 5-325mg Tab PO 1 tab Q6H PRN Administration Pain, Moderate (4-6) Sodium Chloride 10 ml 05/20/20 22:00 05/25/20 10:13 Sodium Chloride 0.9% 10 Ml Flush Syringe IV 10 ml BID TWIN Administration Sodium Chloride 10 ml 05/20/20 11:50 05/24/20 23:38 Sodium Chloride 0.9% 10 Ml Flush Syringe IV 10 ml PRN PRN Administration LINE FLUSH HEART Score - HEART Score Troponin: Troponin T < 0.010 ng/mL (0.00-0.029) 05/20/20 06:43
[2020-05-25 12:21] VITALS: BP 124/78
--- NOTE | 2020-05-25 14:31 | Progress Note ---
Assessment and Plan Assessment and plan: Acute pancreatitis. Etiology secondary to EtOH. Patient will be maintained on bowel rest and kept n.p.o. IV fluid hydration, pain control and supportive care. Serial lipase levels. Colitis. CT scan reveals interval development of concentric mural thickening involving the transverse colon that may represent a developing mild infectious/inflammatory colitis. Patient was started on empiric antibiotics. Stool studies pending Abdominal pain. Etiology secondary to above. Anemia. Etiology likely secondary to chronic blood loss from alcoholic gastritis. Patient with no overt bleeding. PPI daily. Monitor H&H and transfuse for hemoglobin less than 7. Electrolyte abnormalities-hypokalemia and hypomagnesemia. Replete as needed DVT prophylaxis. SCDs. 05/21/2020. Patient with significant hypokalemia. Replete potassium IV and p.o. Check magnesium and replete as needed. Continue IV antibiotics of Levaquin and Flagyl for colitis. Lipase within normal limits. Follow stool studies. The patient has been counseled on the importance of alcohol cessation. Patient reports a fall injuring his right hand. Check right hand plain films. 05/22/2020. Still has electrolyte abnormalities. Magnesium and potassium replacement ordered. RN informed. Repeat BMP and magnesium by 9 PM. Order placed. Patient has been started on a diet today. Denies any diarrhea. Has soft stool. 05/23/2020. Still has had hypomag and hypokalemia.. Repleting potassium and magnesium. Patient is tolerating diet. Awaiting stool studies to rule out C. difficile. Patient has improved diarrhea. Repeat BMP later today replete. Discussed with operating theatre technician who agrees 05/24/2020. Lipase, magnesium and BMP still pending. GI following. Denies diarrhea. He is tolerating diet. 05/25. No diarrhea. Still has electrolyte imbalance. Will check urine K and electrolytes. Started him on aldactone History Interval history: No acute events overnight Feels better. Still has electrolyte imbalance. No further diarrhea. Hospitalist Physical - Physical exam Narrative exam: VITAL SIGNS: Reviewed. GENERAL: Awake HEAD: No signs of head trauma. EYES: Pupils are equal. Extraocular motions intact. MOUTH: Oropharynx is normal. NECK: No adenopathy, no JVD. CHEST: Chest with diminished breath sounds bilaterally. No wheezes, rales, or rhonchi. CARDIAC: normal S1 and S2, without murmurs, gallops, or rubs. ABDOMEN: Soft, slight tenderness and non distended. No rebound or guarding, and no masses palpated. Bowel Sounds normal. MUSCULOSKELETAL: No edema NEUROLOGIC EXAM: Alert and oriented x3. No focal neurologic deficits SKIN: No obvious lesions - Constitutional Vitals: Temp Pulse Resp BP Pulse Ox 98.4 F 82 18 124/78 100 05/25/20 12:18 05/25/20 12:18 05/25/20 12:18 05/25/20 12:18 05/25/20 12:18 HEART Score - HEART Score Troponin: Troponin T < 0.010 ng/mL (0.00-0.029) 05/20/20 06:43 Results - Labs CBC & Chem 7: 05/21/20 05:50 05/25/20 09:39 Labs: Laboratory Last Values WBC 8.6 K/mm3 (4.5-11.0) 05/21/20 05:50 RBC 2.73 M/mm3 (3.65-5.03) L 05/21/20 05:50 Hgb 8.7 gm/dl (11.8-15.2) L 05/21/20 05:50 Hct 25.7 % (35.5-45.6) L D 05/21/20 05:50 MCV 94 fl (84-94) 05/21/20 05:50 MCH 32 pg (28-32) 05/21/20 05:50 MCHC 34 % (32-34) 05/21/20 05:50 RDW 16.6 % (13.2-15.2) H 05/21/20 05:50 Plt Count 65 K/mm3 (140-440) L 05/21/20 05:50 Lymph % (Auto) 12.0 % (13.4-35.0) L 05/21/20 05:50 [place] % (Auto) 5.1 % (0.0-7.3) 05/21/20 05:50 Eos % (Auto) 1.1 % (0.0-4.3) 05/21/20 05:50 Baso % (Auto) 0.2 % (0.0-1.8) 05/21/20 05:50 Lymph # (Auto) 1.0 K/mm3 (1.2-5.4) L 05/21/20 05:50 [place] # (Auto) 0.4 K/mm3 (0.0-0.8) 05/21/20 05:50 Eos # (Auto) 0.1 K/mm3 (0.0-0.4) 05/21/20 05:50 Baso # (Auto) 0.0 K/mm3 (0.0-0.1) 05/21/20 05:50 Seg Neutrophils % 81.6 % (40.0-70.0) H 05/21/20 05:50 Seg Neutrophils # 7.0 K/mm3 (1.8-7.7) 05/21/20 05:50 PT 13.0 Sec. (12.2-14.9) 05/20/20 06:43 INR 1.00 (0.87-1.13) 05/20/20 06:43 APTT 27.5 Sec. (24.2-36.6) 05/20/20 06:43 Sodium 136 mmol/L (137-145) L 05/25/20 09:39 Potassium 3.0 mmol/L (3.6-5.0) L 05/25/20 09:39 Chloride 102.3 mmol/L (98-107) 05/25/20 09:39 Carbon Dioxide 28 mmol/L (22-30) 05/25/20 09:39 Anion Gap 9 mmol/L 05/25/20 09:39 BUN 2 mg/dL (9-20) L 05/25/20 09:39 Creatinine 0.5 mg/dL (0.8-1.3) L 05/25/20 09:39 Estimated GFR > 60 ml/min 05/25/20 09:39 BUN/Creatinine Ratio 4 % 05/25/20 09:39 Glucose 133 mg/dL (75-100) H 05/25/20 09:39 Lactic Acid 3.20 mmol/L (0.7-2.0) H* 05/20/20 07:46 Calcium 8.5 mg/dL (8.4-10.2) 05/25/20 09:39 Magnesium 1.30 mg/dL (1.7-2.3) L 05/25/20 05:20 Total Bilirubin 0.60 mg/dL (0.1-1.2) 05/23/20 05:50 AST 126 units/L (5-40) H 05/23/20 05:50 ALT 37 units/L (7-56) 05/23/20 05:50 Alkaline Phosphatase 173 units/L (35-129) H 05/24/20 15:02 Total Creatine Kinase 215 units/L (55-170) H 05/20/20 06:43 CK-MB (CK-2) 1.2 ng/mL (0.0-4.0) 05/20/20 06:43 CK-MB (CK-2) Rel Index 0.5 (0-4) 05/20/20 06:43 Troponin T < 0.010 ng/mL (0.00-0.029) 05/20/20 06:43 NT-Pro-B Natriuret Pep 117.3 pg/mL (0-450) 05/20/20 06:43 Total Protein 6.2 g/dL (6.3-8.2) L 05/23/20 05:50 Albumin 3.0 g/dL (3.9-5) L 05/23/20 05:50 Albumin/Globulin Ratio 0.9 % 05/23/20 05:50 Lipase 135 units/L (13-60) H 05/25/20 05:20 Urine Color Cherry (Yellow) 05/20/20 Unknown Urine Color Cherry (Yellow) 05/20/20 Unknown Urine Turbidity Clear (Clear) 05/20/20 Unknown Urine Turbidity Cloudy (Clear) 05/20/20 Unknown Urine pH 6.0 (5.0-7.0) 05/20/20 Unknown Urine pH 7.0 (5.0-7.0) 05/20/20 Unknown Ur Specific [place] 1.022 (1.003-1.030) 05/20/20 Unknown Ur Specific [place] 1.055 (1.003-1.030) H 05/20/20 Unknown Urine Protein >500 mg/dL (Negative) 05/20/20 Unknown Urine Protein >500 mg/dL (Negative) 05/20/20 Unknown Urine Glucose (UA) Neg mg/dL (Negative) 05/20/20 Unknown Urine Glucose (UA) Neg mg/dL (Negative) 05/20/20 Unknown Urine Ketones Neg mg/dL (Negative) 05/20/20 Unknown Urine Ketones Neg mg/dL (Negative) 05/20/20 Unknown Urine Blood Neg (Negative) 05/20/20 Unknown Urine Blood Sm (Negative) 05/20/20 Unknown Urine Nitrite Neg (Negative) 05/20/20 Unknown Urine Nitrite Neg (Negative) 05/20/20 Unknown Urine Bilirubin Neg (Negative) 05/20/20 Unknown Urine Bilirubin Sm (Negative) 05/20/20 Unknown Urine Ictotest Positive (Negative) 05/20/20 Unknown Urine Urobilinogen 4.0 mg/dL (<2.0) 05/20/20 Unknown Urine Urobilinogen 4.0 mg/dL (<2.0) 05/20/20 Unknown Ur Leukocyte Esterase Neg (Negative) 05/20/20 Unknown Ur Leukocyte Esterase Neg (Negative) 05/20/20 Unknown Urine WBC (Auto) 2.0 /HPF (0.0-6.0) 05/20/20 Unknown Urine WBC (Auto) 7.0 /HPF (0.0-6.0) H 05/20/20 Unknown Urine RBC (Auto) 4.0 /HPF (0.0-6.0) 05/20/20 Unknown Urine RBC (Auto) 6.0 /HPF (0.0-6.0) 05/20/20 Unknown U Epithel Cells (Auto) 1.0 /HPF (0-13.0) 05/20/20 Unknown U Epithel Cells (Auto) 3.0 /HPF (0-13.0) 05/20/20 Unknown Urine Bacteria (Auto) 1+ /HPF (Negative) 05/20/20 Unknown Hyaline Casts 5 /LPF 05/20/20 Unknown Urine Mucus 3+ /HPF 05/20/20 Unknown Urine Opiates Screen Positive 05/20/20 Unknown Urine Methadone Screen Negative 05/20/20 Unknown Ur Barbiturates Screen Negative 05/20/20 Unknown Ur Phencyclidine Scrn Negative 05/20/20 Unknown Ur Amphetamines Screen Negative 05/20/20 Unknown U Benzodiazepines Scrn Negative 05/20/20 Unknown Urine Cocaine Screen Negative 05/20/20 Unknown U Marijuana (THC) Screen Negative 05/20/20 Unknown Drugs of Abuse Note Disclamer 05/20/20 Unknown Plasma/Serum Alcohol < 0.01 % (0-0.07) 05/20/20 06:43 C. difficile Tox (PCR) Negative (Negative) 05/20/20 09:10 Blood Type B POSITIVE 05/20/20 06:43 Antibody Screen Negative 05/20/20 06:43 Heard/IV: Voiding Method Toilet IV Catheter Type [Left Forearm INT / Saline Lock ] IV Catheter Type [Right Hand] Peripheral IV IV Catheter Type [Right Peripheral IV Antecubital] Active Medications - Current Medications Current Medications: Generic Name Dose Route Start Last Admin Trade Name Freq PRN Reason Stop Dose Admin Acetaminophen 650 mg 05/20/20 11:50 05/20/20 18:31 Acetaminophen 325 Mg Tab PO 650 mg Q4H PRN Administration Pain MILD(1-3)/Fever >100.5/FREITAS Amlodipine Besylate 10 mg 05/24/20 11:00 05/25/20 09:58 Amlodipine 10 Mg Tab PO 10 mg QDAY TWIN Administration Sodium Chloride 1,000 mls @ 125 mls/hr 05/24/20 18:30 05/25/20 11:20 Nacl 0.9% 1000 Ml IV 125 mls/hr DIRECT TWIN Administration Levofloxacin 500 mg 05/23/20 11:00 05/25/20 09:57 Levofloxacin 500 Mg Tab PO 05/29/20 10:59 500 mg Q24HR TWIN Administration Protocol Morphine Sulfate 2 mg 05/20/20 11:50 05/24/20 23:38 Morphine 2 Mg/1 Ml Inj IV 2 mg Q4H PRN Administration Pain, Moderate (4-6) Ondansetron HCl 4 mg 05/20/20 11:50 05/21/20 23:19 Ondansetron 4 Mg/2 Ml Inj IV 4 mg Q8H PRN Administration Nausea And Vomiting Oxycodone/Acetaminophen 1 tab 05/24/20 10:38 05/25/20 10:05 Oxycodone /Acetaminophen 5-325mg Tab PO 1 tab Q6H PRN Administration Pain, Moderate (4-6) Potassium Chloride 40 meq 05/25/20 13:37 Potassium Chloride Er 20 Meq Tab PO 05/25/20 13:38 ONCE ONE Sodium Chloride 10 ml 05/20/20 22:00 05/25/20 10:13 Sodium Chloride 0.9% 10 Ml Flush Syringe IV 10 ml BID TWIN Administration Sodium Chloride 10 ml 05/20/20 11:50 05/24/20 23:38 Sodium Chloride 0.9% 10 Ml Flush Syringe IV 10 ml PRN PRN Administration LINE FLUSH Spironolactone 25 mg 05/25/20 14:00 Spironolactone 25 Mg Tab PO QDAY TWIN Nutrition/Malnutrition Assess - Dietary Evaluation Nutrition/Malnutrition Findings: Nutrition Notes Start: 05/22/20 13:18 Freq: Status: Active Protocol: Document 05/24/20 13:00 CW (Rec: 05/24/20 13:10 CW [email or web address]) Co-Sign 05/24/20 13:00 LM Nutrition Notes Initial or Follow up Reassessment Other Pertinent Diagnosis Pancreatitis, Etoh abuse, colitis, hypokalemia, anemia, GI bleed, gastritis Current Diet GI soft Labs/Tests Na 136 K 3.4 Pertinent Medications reviewed Height 5 ft 10 in Weight 58.2 kg [place] Body Weight (kg) 75.45 BMI 18.3 Intake Prior to Admission Fair Weight change and time frame Wt gain noted Weight Status Underweight Subjective/Other Information FU for diet advancement, intakes, ONS. Pt reports 100% PO breakfast and 100% PO on with an increased overall appetite. Per chart pt hx of consecutive loose stools, pt denies loose stools or N/V/D. Ordered Phos Stat labs. Pt ONS preferences recorded. Percent of energy/protein needs met: 90%/100% Burn Absent Trauma Absent GI Symptoms None Food Allergy No Current % PO Good (75-100%) Minimum of two criteria Yes Interpretation of Weight Loss (severe) >10% in 6 months Reduced Pigment Grinder Strength Measurably Reduced (severe) #2 Nutrition Diagnosis Inadequate oral intake As Evidenced by Signs and Symptoms Pt diet advanced and consuming 100% PO Diagnosis Progress(for reassessment Improved documentation) #1 Nutrition Diagnosis Malnutrition Diagnosis Progress(for reassessment Continues documentation) Is patient on ventilator? No Is Patient Ambulatory and/or Out of Bed Yes REE-(Armstrong-St. Jeor-ambulatory/OOB) [ 1941.225 NUTR.[id number]] Kcal/Kg value to use for calculation 38 Approximate Energy Requirements Using 2212 kcal/Kg Calculation Used for Recommendations Kcal/kg Additional Notes Protein: 1.2-1.5g/kg (69-86g) Fluid: 1 ml/kcal Nutrition Intervention Change Diet Order: Advance diet when medically advised Add Supplement/Snack (indicate name/kcal Ensure Clear daily /protein ) Provides kCal: 240 Provides Protein (gm) 8 Goal #1 Diet Advancement Goal #2 Meet 80% of energy and protein needs via PO/ONS Goal #3 Weight gain/maintenance Anticipated Discharge Needs: Unable to determine at this time Follow-Up By: 05/29/20 Additional Comments FU for intakes, diet advancement
[2020-05-25] MEDS ORDERED: POTASSIUM CHLORIDE ER 20 MEQ TAB PO ONE (15:37)
[2020-05-25] MEDS ORDERED: SPIRONOLACTONE 25 MG TAB PO SCH (16:00)
--- NOTE | 2020-05-26 15:00 | Discharge Summary ---
Providers - Providers Date of Admission: 05/20/20 10:35 Date of discharge: 05/25/20 Attending physician: KEREN HO 05/20/20 11:50 Consult to Physician [CONS] Routine Comment: Consulting Provider: DEEPIKA THOMPSON Physician Instructions: Reason For Exam: colitis [facility] Condition: Stable Hospital course: 05/21/2020. Patient with significant hypokalemia. Replete potassium IV and p.o. Check magnesium and replete as needed. Continue IV antibiotics of Levaquin and Flagyl for colitis. Lipase within normal limits. Follow stool studies. The patient has been counseled on the importance of alcohol cessation. Patient reports a fall injuring his right hand. Check right hand plain films. 05/22/2020. Still has electrolyte abnormalities. Magnesium and potassium replacement ordered. RN informed. Repeat BMP and magnesium by 9 PM. Order placed. Patient has been started on a diet today. Denies any diarrhea. Has soft stool. 05/23/2020. Still has had hypomag and hypokalemia.. Repleting potassium and magnesium. Patient is tolerating diet. Awaiting stool studies to rule out C. difficile. Patient has improved diarrhea. Repeat BMP later today replete. Discussed with agronomy internship who agrees 05/24/2020. Lipase, magnesium and BMP still pending. GI following. Denies diarrhea. He is tolerating diet. 05/25. No diarrhea. Still has electrolyte imbalance. Will check urine K and electrolytes. Started him on aldactone. I explained that he needs to stay in the hospital as he is losing electrolytes and he voiced understanding 05/25. PM Informed by RN that patient decided to leave AMA. Disposition: DC-07 LEFT AGAINST MED ADVICE Time spent for discharge: 32 mins - Discharge Diagnoses (1) Colitis Status: Acute (2) Hypokalemia Status: Acute (3) Hypomagnesemia Status: Acute Core Measure Documentation - Palliative Care Palliative Care/ Comfort Measures: Not Applicable - Core Measures Any of the following diagnoses?: none Exam - Physical Exam Narrative exam: VITAL SIGNS: Reviewed. GENERAL: Awake HEAD: No signs of head trauma. EYES: Pupils are equal. Extraocular motions intact. MOUTH: Oropharynx is normal. NECK: No adenopathy, no JVD. CHEST: Chest with diminished breath sounds bilaterally. No wheezes, rales, or rhonchi. CARDIAC: normal S1 and S2, without murmurs, gallops, or rubs. ABDOMEN: Soft, slight tenderness and non distended. No rebound or guarding, and no masses palpated. Bowel Sounds normal. MUSCULOSKELETAL: No edema NEUROLOGIC EXAM: Alert and oriented x3. No focal neurologic deficits SKIN: No obvious lesions - Constitutional Vitals: Temp Pulse Resp BP Pulse Ox 98.4 F 82 18 124/78 100 05/25/20 12:18 05/25/20 12:18 05/25/20 12:18 05/25/20 12:18 05/25/20 12:18 Plan Follow up with: KRISS MENDEZ MD [Primary Care Provider] - 3-5 Days Forms: AMA Form
== END 2020-05-25 19:00 | disposition left against medical advice (07) | DRG 391 ==
LOC: ED 20:31 → 4A 05-20 10:35
PROVIDERS: ADMIT Hospitalist; ATTEND Internal Medicine
DX: K52.9 Noninfective gastroenteritis and colitis, unspecified (principal); K85.20 Alcohol induced acute pancreatitis without necrosis or infection; F10.239 Alcohol dependence with withdrawal, unspecified; E87.6 Hypokalemia; E83.42 Hypomagnesemia; Z53.29 Procedure and treatment not carried out because of patient's decision for other reasons; I10 Essential (primary) hypertension; F17.200 Nicotine dependence, unspecified, uncomplicated; D64.9 Anemia, unspecified
CPT/HCPCS: 36415; 70450; 71045; 74177; 80048; 80053; 80307; 80320; 81001; 82140; 82550; 82553; 83690; 83735; 83880; 84075; 84484; 85025; 85610; 85730; 86850; 86900; 86901; 87116; 87493; 93005; 96365; 96375; G0378; C9113; G0480; J1956; J2060; J2270; J2405; J2543; J3475; J3480; J7030; Q9967

== ENCOUNTER 2020-06-04 01:15 | Observation (INO) | payer SELFPAY ==
[2020-06-04] MEDS ORDERED: SODIUM CHLORIDE 0.9% 1000 ML 1,000 ML IV ONE (03:32)
--- NOTE | 2020-06-04 03:47 | Emergency Department Report ---
HPI <ROCAEL ADAMES - Last Filed: 06/04/20 10:07> - HPI HPI: This is a 40-year-old -[place] male presents to the emergency department, via EMS from home, with complaint of palpitations that have been going on for the past 2 days. Patient describes it as feeling like his heart is racing. He has a past medical history of recurrent alcohol abuse, alcoholic pancreatitis, tobacco use disorder. The patient does admit to drinking today, Thursday. Patient does occasionally smoke marijuana but otherwise denies any other illicit drug use. He has not taken anything for his symptoms prior to presentation. Patient denies any fever, chest pain, shortness of breath, nausea, vomiting or diaphoresis. No recent travel or sick contacts at home. No known exposure to anyone with COVID-19. The patient was recently admitted to this hospital for alcohol induced pancreatitis. The patient also complains of shooting pains down the bilateral lower extremities. This has been going on for about 6 months. He denies any lower extremity swelling, rash, lesions, numbness or paresthesias. No known aggravating or alleviating factors. The patient is able to ambulate. <GAYLE DE LA TORRE - Last Filed: 06/04/20 12:34> - General Chief Complaint: Chest Pain Time Seen by Provider: 06/04/20 03:24 ED Past Medical Hx <ROCAEL ADAMES - Last Filed: 06/04/20 10:07> - Past Medical History Previous Medical History?: Yes Hx Hypertension: Yes Hx Congestive Heart Failure: No Hx Diabetes: No Hx Psychiatric Treatment: Yes (alcohol abuse) Hx Asthma: No Hx COPD: No Hx HIV: No Additional medical history: Pancreatitis - Surgical History Hx Appendectomy: Yes - Social History Smoking Status: Never Smoker <GAYLE DE LA TORRE - Last Filed: 06/04/20 12:34> - Medications Home Medications: Home Medications Medication Instructions Recorded Confirmed Last Taken Type Acetaminophen [Acetaminophen TAB] 650 mg PO Q4H PRN #20 tablet 05/06/20 05/23/20 Unknown Rx Folic Acid 1 mg PO DAILY #30 tablet 05/06/20 05/23/20 Unknown Rx HYDROcodone/APAP 7.5-325 [[place] 1 each PO Q4H PRN #14 tablet 05/06/20 05/23/20 Unknown Rx 7.5-325 mg TAB] Multivitamin 1 each PO DAILY #30 tablet 05/06/20 05/23/20 Unknown Rx Ondansetron [Zofran ODT TAB] 8 mg PO Q12HR #14 tab.rapdis 05/06/20 05/23/20 Unknown Rx Pantoprazole [Protonix TAB] 40 mg PO BIDAC #60 tablet 05/06/20 05/23/20 Unknown Rx Potassium Chloride [K-Dur] 20 meq PO BID #10 tab 05/06/20 05/23/20 Unknown Rx Thiamine [Vitamin B-1] 100 mg PO QDAY #30 tablet 05/06/20 05/23/20 Unknown Rx amLODIPine 5 mg PO DAILY #30 tab 06/04/20 Unknown Rx ED Review of Systems ROS: Stated complaint: PALPITATIONS Other details as noted in HPI <ROCAEL ADAMES - Last Filed: 06/04/20 10:07> ROS: Stated complaint: PALPITATIONS Other details as noted in HPI Comment: All other systems reviewed and negative Constitutional: denies: chills, fever Eyes: denies: eye pain, vision change ENT: denies: ear pain, throat pain Respiratory: denies: cough, shortness of breath Cardiovascular: palpitations. denies: chest pain Gastrointestinal: denies: nausea, vomiting Genitourinary: denies: dysuria, discharge Musculoskeletal: myalgia. denies: back pain Skin: denies: rash, lesions Neurological: denies: headache, numbness, paresthesias <GAYLE DE LA TORRE - Last Filed: 06/04/20 12:34> Physical Exam - Physical Exam Vital Signs: Vital Signs 06/04/20 06/04/20 06/04/20 03:29 03:33 03:45 Temperature 98.5 F Pulse Rate 116 H Respiratory 20 16 Rate Blood Pressure 149/92 [Right] O2 Sat by Pulse 95 Oximetry 06/04/20 06:19 Temperature Pulse Rate 128 H Respiratory 20 Rate Blood Pressure 158/100 [Right] O2 Sat by Pulse 99 Oximetry <ROCAEL ADAMES - Last Filed: 06/04/20 10:07> - Physical Exam Vital Signs: Vital Signs 06/04/20 06/04/20 03:29 03:33 Temperature 98.5 F Respiratory 20 Rate Physical Exam: GENERAL: The patient is well-developed well-nourished. HENT: Normocephalic. Atraumatic. Patient has moist mucous membranes. EYES: Extraocular motions are intact. NECK: Supple. Trachea is midline. CHEST/LUNGS: Clear to auscultation. There is no respiratory distress noted. HEART/CARDIOVASCULAR: Regular. There is mild tachycardia. There is no murmur. ABDOMEN: Abdomen is soft, nontender. Patient has normal bowel sounds. SKIN: Skin is warm and dry. NEURO: The patient is awake, alert, and oriented. The patient is cooperative. Normal speech. MUSCULOSKELETAL: There is no tenderness or deformity. There is no limitation range of motion. <GAYLE DE LA TORRE - Last Filed: 06/04/20 12:34> ED Course Vital Signs 06/04/20 06/04/20 06/04/20 03:29 03:33 03:45 Temperature 98.5 F Pulse Rate 116 H Respiratory 20 16 Rate Blood Pressure 149/92 [Right] O2 Sat by Pulse 95 Oximetry 06/04/20 06:19 Temperature Pulse Rate 128 H Respiratory 20 Rate Blood Pressure 158/100 [Right] O2 Sat by Pulse 99 Oximetry - Reevaluation(s) Reevaluation #1: 06/04/20 08:03 I was informed by nursing staff that patient blood pressure is elevated to the 160s systolic. We will determine if patient takes blood pressure medication at home and if so we will will restart him on his home medications. Patient is also noted to be more alert, oriented. Patient is completing a banana bag and when completed will likely be discharged home. Reevaluation #2: 06/04/20 09:36 I reevaluated patient and patient was noted to be tachycardic in the 140s. Patient also states that he feels palpitations. He denies chest pain. Patient also tremulous with tongue fasciculations. I am concerned patient could be in alcohol withdrawal. He states that he last had an episode of alcohol withdrawal and was admitted for that on last week. Plan to obtain EKG, set of vital sign patient likely to be started on CIWA protocol. <ROCAEL ADAMES - Last Filed: 06/04/20 10:07> Vital Signs 06/04/20 06/04/20 03:29 03:33 Temperature 98.5 F Respiratory 20 Rate <GAYLE DE LA TORRE - Last Filed: 06/04/20 12:34> ED Medical Decision Making - Lab Data Result diagrams: 06/04/20 04:09 06/04/20 04:09 <ROCAEL ADAMES - Last Filed: 06/04/20 10:07> - Lab Data Result diagrams: 06/04/20 04:09 06/04/20 04:09 - EKG Data -: EKG Interpreted by Me EKG shows normal: sinus rhythm, axis, intervals, QRS complexes (Q waves to the septal leads), ST-T waves Rate: tachycardia (115 bpm) - EKG Data When compared to previous EKG there are: changes noted (Previous EKG showed some mild ST depressions to the lateral leads and much more significant tachycardia than today.) Interpretation: other (Sinus tachycardia at 115 bpm, normal axis, normal intervals, Q waves to the septal leads) - Medical Decision Making This patient presents to the emergency department with complaint of some palpitations as if his heart is racing. He does have some mild tachycardia. Otherwise heart and lung sounds are normal to auscultation. An EKG was done that does not show any signs of ST elevation myocardial infarction or any dysrhythmia, and the EKG is unchanged, if not improved, from previous. Patient's labs have been mostly unremarkable except for a slight elevation in the AST level, consistent with the patient's alcohol use, and the blood alcohol level of 0.19. The patient has received some IV fluid resuscitation including a banana bag. This patient will be signed out to my colleague, Dr Adames, to make sure the patient gets down below the legal limit, or is picked up by friends or family who are willing to take responsibility for him. Patient did have some complaint of pain going down the bilateral lower extremities. However he does admit that this is a chronic issue for him. There are no abnormalities seen. He appears neurovascularly intact. He has full range of motion. There has been no recent trauma or injury. He has been instructed to follow-up with primary care. In reviewing the rest of the patient's ED course, after it was signed out to my colleague, the patient appears to have begun having more significant alcohol withdrawal symptoms. He became hypertensive, more tachycardic. He was found to have hypomagnesemia that is being replaced by the hospitalist service. The patient was placed on CIWA protocol and is being admitted to the hospitalist service. <GAYLE DE LA TORRE - Last Filed: 06/04/20 12:34> Critical care attestation.: If time is entered above; I have spent that time in minutes in the direct care of this critically ill patient, excluding procedure time. <ROCAEL ADAMES - Last Filed: 06/04/20 10:07> Critical Care Time: No Critical care attestation.: If time is entered above; I have spent that time in minutes in the direct care of this critically ill patient, excluding procedure time. <GAYLE DE LA TORRE - Last Filed: 06/04/20 12:34> ED Disposition Is pt being admited?: Yes Does the pt Need Aspirin: No <ROCAEL ADAMES - Last Filed: 06/04/20 10:07> Is pt being admited?: Yes Time of Disposition: 05:44 <GAYLE DE LA TORRE - Last Filed: 06/04/20 12:34> Clinical Impression: Alcohol abuse, Palpitations, Alcohol withdrawal, Hypomagnesemia Disposition: DC-09 OP ADMIT IP TO THIS HOSP Condition: Stable
--- NOTE | 2020-06-04 04:00 | XRay Report ---
CHEST 1 VIEW 0333 INDICATION / CLINICAL INFORMATION: palpitations COMPARISON: 05/20/2020 FINDINGS: SUPPORT DEVICES: None HEART / MEDIASTINUM: No significant abnormality. LUNGS / PLEURA: No significant pulmonary or pleural abnormality. No pneumothorax. ADDITIONAL FINDINGS: No significant additional findings. IMPRESSION: No significant acute abnormality Signer Name: Ayo Florez MD Signed: 06/04/2020 3:55 AM Workstation Name: [id number]
[2020-06-04 04:39] LABS: Basophils # (Auto) 0.1 K/mm3 (0.0-0.1); Eosinophils % (Auto) 0.5 % (0.0-4.3); Hematocrit 29.7 % (35.5-45.6); Lymphocytes # (Auto) 1.8 K/mm3 (1.2-5.4); Lymphocytes % (Auto) 19.4 % (13.4-35.0); Mean Corpuscular HGB Conc 34 % (32-34); Mean Corpuscular Volume 94 fl (84-94); Monocytes # (Auto) 0.4 K/mm3 (0.0-0.8); Monocytes % (Auto) 4.6 % (0.0-7.3); Platelet Count 272 K/mm3 (140-440); Red Blood Count 3.16 M/mm3 (3.65-5.03); Red Cell Distribution Width 18.1 % (13.2-15.2)
[2020-06-04 04:56] LABS: INR 1.01 (0.87-1.13)
[2020-06-04 05:08] LABS: Alanine Aminotransferase 41 units/L (7-56); Albumin 3.7 g/dL (3.9-5); Blood Urea Nitrogen 4 mg/dL (9-20); Calcium 8.8 mg/dL (8.4-10.2); Hemolysis Index 3
[2020-06-04 05:09] LABS: BUN/Creatinine Ratio 8
[2020-06-04] MEDS ORDERED: THIAMINE 100 MG, FOLIC ACID 1 MG, MULTIPLE VITAMIN INJ, ADULT 10 ML in SODIUM CHLORIDE ... IV ONE (06:00)
[2020-06-04] MEDS ORDERED: amLODIPine 5 MG TAB PO ONE ×2 (08:13→13:00)
[2020-06-04 09:03] LABS: Bilirubin,Urine NEG (Negative); Blood,Urine NEG (Negative); Color,Urine Yellow (Yellow); RBC,Urine < 1.0 /HPF (0.0-6.0)
[2020-06-04 09:08] LABS: Amphetamine Screen,Urine Negative; Benzodiazepines Screen,Urine Negative; Cannabinoid Screen,Urine Negative; Cocaine Screen,Urine Negative; Methadone Screen,Urine Negative; Opiate Screen,Urine Negative
[2020-06-04] MEDS ORDERED: PHENobarbitaL 130 MG/ML VIAL IV PRN (10:08)
[2020-06-04] MEDS ORDERED: LORazepam 2 MG/ML VIAL IV PRN ×2 (10:08)
[2020-06-04] MEDS: LORazepam 2 MG/ML VIAL IV PRN ×4 (10:38→18:54)
[2020-06-04] MEDS ORDERED: ACETAMINOPHEN 325 MG TAB PO PRN (11:00)
[2020-06-04] MEDS ORDERED: ONDANSETRON 4 MG/2 ML INJ IV PRN (11:00)
[2020-06-04] MEDS ORDERED: hydrALAZINE 20 MG/1 ML INJ IV PRN (11:00)
--- NOTE | 2020-06-04 11:52 | History and Physical Report ---
History of Present Illness Date of examination: 06/04/20 Date of admission: 06/04/20 10:37 Chief complaint: Chest palpitations History of present illness: This is a 40-year-old male with hypertension, alcohol induced pancreatitis, alcohol abuse (1 pint per day for 25 years), occasional marijuana use and tobacco abuse (half a pack a day for 25 years) who presents to the emergency department on 06/04 with complaints of chest palpitations patient has intermittent with no epigastric pain with inspiration rated a 7/10 has been ongoing for 1 day with no radiation or alleviating or worsening factors and a productive cough for 1 day. Patient also states that he has paresthesias to bilateral feet, chills with no associated nausea/vomiting or diarrhea. Patient denies any hemoptysis, hematuria, hematochezia, melena, nausea, diarrhea, hematemesis, fever, night sweats, recent weight loss, recent travel, sick contacts or notes whether to COVID-19. Work-up in the emergency department reveals slight hypokalemia at 3.5, elevated AST 82, elevated alkaline phos at 221, plasma/serum alcohol level of 0.19 and CXR shows no significant abnormality. Patient was found to be severely hypomagnesemic at .8 and was given 4 g of magnesium with a repeat level in the a.m. Patient will be admitted to the hospital service for EtOH withdrawal and electrolyte derangements. Ad vanced care planning conducted in the emergency department, no home medications to reconcile prior visits reviewed. Past History Past Medical History: hypertension, other (Alcohol induced pancreatitis, alcohol and tobacco abuse) Past Surgical History: appendectomy Social history: single, smoking, alcohol abuse, full code, other (Lives with friend) Family history: diabetes Medications and Allergies Allergies Allergy/AdvReac Type Severity Reaction Status Date / Time No Known Allergies Allergy Unverified 04/24/20 12:30 Home Medications Medication Instructions Recorded Confirmed Last Taken Type Acetaminophen [Acetaminophen TAB] 650 mg PO Q4H PRN #20 tablet 05/06/20 05/23/20 Unknown Rx Folic Acid 1 mg PO DAILY #30 tablet 05/06/20 05/23/20 Unknown Rx HYDROcodone/APAP 7.5-325 [[place] 1 each PO Q4H PRN #14 tablet 05/06/20 05/23/20 Unknown Rx 7.5-325 mg TAB] Multivitamin 1 each PO DAILY #30 tablet 05/06/20 05/23/20 Unknown Rx Ondansetron [Zofran ODT TAB] 8 mg PO Q12HR #14 tab.rapdis 05/06/20 05/23/20 Unknown Rx Pantoprazole [Protonix TAB] 40 mg PO BIDAC #60 tablet 05/06/20 05/23/20 Unknown Rx Potassium Chloride [K-Dur] 20 meq PO BID #10 tab 05/06/20 05/23/20 Unknown Rx Thiamine [Vitamin B-1] 100 mg PO QDAY #30 tablet 05/06/20 05/23/20 Unknown Rx amLODIPine 5 mg PO DAILY #30 tab 06/04/20 Unknown Rx Active Meds: Active Medications Acetaminophen (Acetaminophen 325 Mg Tab) 650 mg PO Q4H PRN PRN Reason: Pain MILD(1-3)/Fever >100.5/FREITAS Amlodipine Besylate (Amlodipine 5 Mg Tab) 5 mg PO QDAY TWIN Folic Acid (Folic Acid 1 Mg Tab) 1 mg PO DAILY TWIN Hydralazine HCl (Hydralazine 20 Mg/1 Ml Inj) 10 mg IV Q4HR PRN PRN Reason: Hypertension Lorazepam (Lorazepam 2 Mg/Ml Vial) 2 mg IV Q1H PRN PRN Reason: Suzan 8-15 Last Admin: 06/04/20 10:38 Dose: 2 mg Documented by: Lorazepam (Lorazepam 2 Mg/Ml Vial) 4 mg IV Q1H PRN PRN Reason: Suzan 16-25 Multivitamins (Multivitamins ,Therapeutic Tab) 1 each PO DAILY TWIN Ondansetron HCl (Ondansetron 4 Mg/2 Ml Inj) 4 mg IV Q8H PRN PRN Reason: Nausea And Vomiting Oxycodone/Acetaminophen (Oxycodone /Acetaminophen 5-325mg Tab) 1 tab PO Q6H PRN PRN Reason: Pain, Moderate (4-6) Pantoprazole Sodium (Pantoprazole 40 Mg Tab) 40 mg PO BIDAC TWIN Phenobarbital (Phenobarbital 130 Mg/Ml Vial) 130 mg IV Q15M PRN PRN Reason: DT's refractory to BZD's Sodium Chloride (Sodium Chloride 0.9% 10 Ml Flush Syringe) 10 ml IV BID TWIN Sodium Chloride (Sodium Chloride 0.9% 10 Ml Flush Syringe) 10 ml IV PRN PRN PRN Reason: LINE FLUSH Thiamine HCl (Thiamine 100 Mg Tab) 100 mg PO QDAY TWIN Review of Systems Constitutional: chills, no weight loss, no weight gain, no fever, no sweats, no night sweats, no anorexia, no fatigue, no weakness, no malaise, no lethargy Ears, nose, mouth and throat: no ear pain, no ear discharge, no tinnitis, no decreased hearing, no nose pain, no nasal congestion, no nasal discharge, no sinus pressure, no sinus pain, no epistaxis, no dental pain, no mouth pain, no dysphagia, no hoarseness, no sore throat, no swelling in mouth, no neck fullness/pressure Cardiovascular: palpitations, high blood pressure, no rapid/irregular heart beat, no edema, no syncope, no lightheadedness, no shortness of breath, no dyspnea on exertion, no leg edema Respiratory: cough with sputum, pleurisy, pain on inspiration, no hemoptysis, no shortness of breath, no dyspnea on exertion Gastrointestinal: no abdominal pain, no nausea, no vomiting, no diarrhea, no constipation, no change in bowel habits, no hematemesis, no coffee ground emes is, no hematochezia, no loss of appetite, no heartburn Genitourinary Male: no dysuria, no hematuria, no flank pain, no discharge, no urinary frequency, no urinary hesitancy, no nocturia, no incontinence, no polyuria Rectal: no pain, no incontinence, no bleeding, no flatulence Musculoskeletal: leg numbness/tingling, no neck stiffness, no neck pain, no shooting arm pain, no arm numbness/tingling, no low back pain, no shooting leg pain, no redness of joints, no frequent falls, no fractures, no loss of height, no prior amputations Integumentary: no deferred, no rash, no pruritis, no redness, no sores, no wounds, no jaundice, no lesions, no darkening of skin Neurological: parathesias, numbness, tingling, no head injury, no transient paralysis, no paralysis, no weakness, no seizures, no syncope, no tremors, no ataxia, no lack of coordination, no vertigo, no headaches, no convulsions, no change in speech, no change in mentation, no changes in smell/taste Psychiatric: no anxiety, no memory loss, no change in sleep habits, no sleep disturbances, no insomnia, no hypersomnia, no change in appetite, no change in libido, no suicidal ideation, no disorientation, no hallucinations, no paranoia, no depression Endocrine: palpatations, no cold intolerance, no heat intolerance, no polyphagia, no excessive thirst, no polydipsia, no excessive sweating, no flushing, no weight change, no increase in ring/shoe/hat size Hematologic/Lymphatic: no easy bruising, no easy bleeding Allergic/Immunologic: no urticaria, no allergic rhinitis, no anaphylaxis Exam - Constitutional Vitals: Temp Pulse Resp BP Pulse Ox 98.5 F 88 20 187/103 99 06/04/20 03:29 06/04/20 08:40 06/04/20 06:19 06/04/20 08:40 06/04/20 06:19 General appearance: Present: no acute distress - EENT Eyes: Present: PERRL, EOM intact ENT: hearing intact, poor dentition - Neck Neck: Present: supple, normal ROM - Respiratory Respiratory effort: normal Respiratory: bilateral: CTA - Cardiovascular Rhythm: regular Heart Sounds: Present: S1 & S2. Absent: systolic murmur, diastolic murmur - Extremities Extremities: no ischemia, pulses intact, pulses symmetrical, No edema, normal temperature, normal color, Full ROM Peripheral Pulses: within normal limits - Abdominal General gastrointestinal: Present: soft, non-tender, non-distended, normal bowel sounds - Integumentary Integumentary: Present: warm, dry - Musculoskeletal Musculoskeletal: strength equal bilaterally - Psychiatric Psychiatric: appropriate mood/affect, cooperative - Neurologic Neurologic: CNII-XII intact, no focal deficits, moves all extremities HEART Score - HEART Score Troponin: Troponin T < 0.010 ng/mL (0.00-0.029) 06/04/20 04:09 Results - Labs CBC & Chem 7: 06/04/20 04:09 06/04/20 04:09 Labs: Laboratory Last Values WBC 9.3 K/mm3 (4.5-11.0) 06/04/20 04:09 RBC 3.16 M/mm3 (3.65-5.03) L 06/04/20 04:09 Hgb 10.0 gm/dl (11.8-15.2) L 06/04/20 04:09 Hct 29.7 % (35.5-45.6) L 06/04/20 04:09 MCV 94 fl (84-94) 06/04/20 04:09 MCH 32 pg (28-32) 06/04/20 04:09 MCHC 34 % (32-34) 06/04/20 04:09 RDW 18.1 % (13.2-15.2) H 06/04/20 04:09 Plt Count 272 K/mm3 (140-440) 06/04/20 04:09 Lymph % (Auto) 19.4 % (13.4-35.0) 06/04/20 04:09 [place] % (Auto) 4.6 % (0.0-7.3) 06/04/20 04:09 Eos % (Auto) 0.5 % (0.0-4.3) 06/04/20 04:09 Baso % (Auto) 1.0 % (0.0-1.8) 06/04/20 04:09 Lymph # (Auto) 1.8 K/mm3 (1.2-5.4) 06/04/20 04:09 [place] # (Auto) 0.4 K/mm3 (0.0-0.8) 06/04/20 04:09 Eos # (Auto) 0.0 K/mm3 (0.0-0.4) 06/04/20 04:09 Baso # (Auto) 0.1 K/mm3 (0.0-0.1) 06/04/20 04:09 Seg Neutrophils % 74.5 % (40.0-70.0) H 06/04/20 04:09 Seg Neutrophils # 6.9 K/mm3 (1.8-7.7) 06/04/20 04:09 PT 13.2 Sec. (12.2-14.9) 06/04/20 04:09 INR 1.01 (0.87-1.13) 06/04/20 04:09 Sodium 145 mmol/L (137-145) 06/04/20 04:09 Potassium 3.5 mmol/L (3.6-5.0) L 06/04/20 04:09 Chloride 100.9 mmol/L (98-107) 06/04/20 04:09 Carbon Dioxide 30 mmol/L (22-30) 06/04/20 04:09 Anion Gap 18 mmol/L 06/04/20 04:09 BUN 4 mg/dL (9-20) L 06/04/20 04:09 Creatinine 0.5 mg/dL (0.8-1.3) L 06/04/20 04:09 Estimated GFR > 60 ml/min 06/04/20 04:09 BUN/Creatinine Ratio 8 % 06/04/20 04:09 Glucose 83 mg/dL (75-100) 06/04/20 04:09 Calcium 8.8 mg/dL (8.4-10.2) 06/04/20 04:09 Magnesium 0.80 mg/dL (1.7-2.3) L* 06/04/20 10:29 Total Bilirubin 0.80 mg/dL (0.1-1.2) 06/04/20 04:09 AST 82 units/L (5-40) H 06/04/20 04:09 ALT 41 units/L (7-56) 06/04/20 04:09 Alkaline Phosphatase 221 units/L (35-129) H 06/04/20 04:09 Troponin T < 0.010 ng/mL (0.00-0.029) 06/04/20 04:09 Total Protein 7.2 g/dL (6.3-8.2) 06/04/20 04:09 Albumin 3.7 g/dL (3.9-5) L 06/04/20 04:09 Albumin/Globulin Ratio 1.1 % 06/04/20 04:09 Lipase 56 units/L (13-60) 06/04/20 04:09 TSH 0.930 mlU/mL (0.270-4.200) 06/04/20 04:09 Urine Color Yellow (Yellow) 06/04/20 Unknown Urine Turbidity Clear (Clear) 06/04/20 Unknown Urine pH 7.0 (5.0-7.0) 06/04/20 Unknown Ur Specific [place] 1.010 (1.003-1.030) 06/04/20 Unknown Urine Protein 100 mg/dl mg/dL (Negative) 06/04/20 Unknown Urine Glucose (UA) Neg mg/dL (Negative) 06/04/20 Unknown Urine Ketones Neg mg/dL (Negative) 06/04/20 Unknown Urine Blood Neg (Negative) 06/04/20 Unknown Urine Nitrite Neg (Negative) 06/04/20 Unknown Urine Bilirubin Neg (Negative) 06/04/20 Unknown Urine Urobilinogen 2.0 mg/dL (<2.0) 06/04/20 Unknown Ur Leukocyte Esterase Neg (Negative) 06/04/20 Unknown Urine WBC (Auto) 1.0 /HPF (0.0-6.0) 06/04/20 Unknown Urine RBC (Auto) < 1.0 /HPF (0.0-6.0) 06/04/20 Unknown Urine Opiates Screen Negative 06/04/20 Unknown Urine Methadone Screen Negative 06/04/20 Unknown Ur Barbiturates Screen Negative 06/04/20 Unknown Ur Phencyclidine Scrn Negative 06/04/20 Unknown Ur Amphetamines Screen Negative 06/04/20 Unknown U Benzodiazepines Scrn Negative 06/04/20 Unknown Urine Cocaine Screen Negative 06/04/20 Unknown U Marijuana (THC) Screen Negative 06/04/20 Unknown Drugs of Abuse Note Disclamer 06/04/20 Unknown Plasma/Serum Alcohol 0.19 % (0-0.07) H 06/04/20 04:09 - Imaging and Cardiology CT scan - chest: report reviewed, image reviewed - Diagnostic Impressions Diagnostic Impressions: 05/27 CXR shows no acute abnormalities Heard/IV: IV Catheter Type [Left INT / Saline Lock Antecubital] Assessment and Plan VTE prophylaxis?: Chemical, Mechanical Plan of care discussed with patient/family: Yes - Patient Problems (1) Alcohol abuse Current Visit: Yes Status: Chronic Plan to address problem: Patient admits to drinking 1 pint of liquor per day for 25 years [facility] protocol 06/04 plasma alcohol 0.19 Seizure and aspiration precautions Supportive care Case management for alcohol cessation resources Alcohol cessation education completed (2) Hypokalemia Current Visit: No Status: Acute Plan to address problem: Presented with potassium 3.5 Repleted Trend BMP Replete as necessary (3) Hypomagnesemia Current Visit: Yes Status: Acute Plan to address problem: Presented with a magnesium of 0.8 4 g magnesium IV Trend magnesium Replete as needed (4) Palpitations Current Visit: Yes Status: Acute Plan to address problem: 06/04 TSH 0.9 Patient has severe hypomagnesemia with slight hypokalemia 06/[address] [facility] 06/04 troponin less than 0.010 (5) Paresthesia of both feet Current Visit: Yes Status: Acute Plan to address problem: Patient complains of paresthesias to bilateral feet for about 2 weeks 06/04 hemoglobin A1c pending (6) DVT prophylaxis Current Visit: No Status: Acute Plan to address problem: Lovenox subcu SCDs to bilateral lower extremities while in bed (7) Full code status Current Visit: No Status: Acute
[2020-06-04 12:24] LABS: Albumin 3.3 g/dL (3.9-5); Bilirubin,Direct 0.7 mg/dL (0-0.2)
[2020-06-04] MEDS ORDERED: MAGNESIUM SULFATE 4 GM/100 ML BAG IV ONE (13:00)
[2020-06-04] MEDS: GABAPENTIN 100 MG CAP PO SCH ×2 (15:06→22:54)
[2020-06-04] MEDS: PANTOPRAZOLE 40 MG TAB PO SCH (16:46)
[2020-06-04] MEDS: oxyCODONE /ACETAMINOPHEN 5-325MG TAB PO PRN (23:26)
[2020-06-05 06:36] LABS: Basophils # (Auto) 0.1 K/mm3 (0.0-0.1); Basophils % (Auto) 0.6 % (0.0-1.8); Eosinophils # (Auto) 0.1 K/mm3 (0.0-0.4); Eosinophils % (Auto) 0.8 % (0.0-4.3); Hematocrit 23.4 % (35.5-45.6); Hemoglobin 7.9 gm/dl (11.8-15.2); Lymphocytes # (Auto) 1.8 K/mm3 (1.2-5.4); Lymphocytes % (Auto) 22.1 % (13.4-35.0); Mean Corpuscular HGB Conc 34 % (32-34); Mean Corpuscular Volume 93 fl (84-94); Monocytes # (Auto) 0.3 K/mm3 (0.0-0.8); Platelet Count 179 K/mm3 (140-440); Red Blood Count 2.51 M/mm3 (3.65-5.03); Red Cell Distribution Width 17.7 % (13.2-15.2)
[2020-06-05 07:00] LABS: Blood Urea Nitrogen 4 mg/dL (9-20); Hemolysis Index 0
[2020-06-05 07:01] LABS: BUN/Creatinine Ratio 10
[2020-06-05] MEDS: GABAPENTIN 100 MG CAP PO SCH ×3 (07:26→21:32)
[2020-06-05] MEDS: THIAMINE 100 MG TAB PO SCH (09:00)
[2020-06-05] MEDS: FOLIC ACID 1 MG TAB PO SCH (09:00)
[2020-06-05] MEDS: PANTOPRAZOLE 40 MG TAB PO SCH ×2 (09:00→18:13)
[2020-06-05] MEDS: POTASSIUM CHLORIDE ER 20 MEQ TAB PO SCH ×2 (09:00→13:39)
[2020-06-05] MEDS ORDERED: MAGNESIUM SULFATE 4 GM/100 ML BAG IV ONE (09:00)
[2020-06-05] MEDS: MULTIVITAMINS ,THERAPEUTIC TAB PO SCH (09:01)
[2020-06-05] MEDS ORDERED: NON-FORMULARY EACH (Multivitamin [Multivitamin] 1 EACH Tablet) PO SCH (10:00)
[2020-06-05] MEDS ORDERED: amLODIPine 5 MG TAB PO SCH (10:00)
[2020-06-05] MEDS: oxyCODONE /ACETAMINOPHEN 5-325MG TAB PO PRN ×2 (10:32→18:12)
[2020-06-05] MEDS: LORazepam 2 MG/ML VIAL IV PRN (10:46)
[2020-06-05 15:54] LABS: BUN/Creatinine Ratio 8; Blood Urea Nitrogen 4 mg/dL (9-20); Hemolysis Index 0
--- NOTE | 2020-06-05 16:52 | Progress Note ---
Assessment and Plan - Patient Problems (1) Person under investigation for COVID-19 Current Visit: Yes Status: Acute Plan to address problem: 06/05 overnight patient spiked temperatures 06/04 CXR shows no acute process 06/05 COVID-19 PCR pending Droplet//precautions OOB 3 times daily Patient is on room air therefore steroid therapy start indicated Anticoagulation per protocol Pulmonary hygiene Monitor oxygen as needed Prone to sleep as needed Consider ID/pulmonology consult (2) Palpitations Current Visit: Yes Status: Acute Plan to address problem: 06/04 TSH 0.9 Patient has severe hypomagnesemia with slight hypokalemia 06/[address] [facility] 06/04 troponin less than 0.010 Likely due to alcohol withdrawal (3) Hypomagnesemia Current Visit: Yes Status: Acute Plan to address problem: Presented with a magnesium of 0.8 and received 4 g magnesium IV Trend magnesium Replete as needed 06/05 magnesium 1.5 , repleted Upon review of prior adamant hypomagnesemia seems to be chronic likely due to alcoholism (4) Hypokalemia Current Visit: No Status: Resolved Plan to address problem: Presented with potassium 3.5, 06/05 3.7 Repleted Trend BMP Replete as necessary Patient had hypokalemia on previous admit and was discharged with potassium supplementation Likely due to alcoholism (5) Alcohol abuse Current Visit: Yes Status: Chronic Plan to address problem: Patient admits to drinking 1 pint of liquor per day for 25 years [facility] protocol 06/04 plasma alcohol 0.19 Seizure and aspiration precautions Supportive care Case management for alcohol cessation resources Alcohol cessation education completed (6) Paresthesia of both feet Current Visit: Yes Status: Acute Plan to address problem: Patient complains of paresthesias to bilateral feet for about 2 weeks 06/04 hemoglobin A1c pending Patient started on gabapentin Likely due to his alcoholism (7) Hyponatremia Current Visit: Yes Status: Acute Plan to address problem: Slight, sodium 134-135 Trend BMP Monitor neuro status (8) Hypertension Current Visit: Yes Status: Chronic Plan to address problem: Presented to the ED with BP 140-150/70-80s S/p 2.5 amlodipine in the ED Upon reviewing prior medical records patient has been restarted on 5 mg Norvasc daily Blood pressure monitoring per protocol IV hydralazine as needed for SBP greater than 160 (9) Transaminitis Current Visit: Yes Status: Acute Plan to address problem: 06/05 T bili 1.4, D bili 0.7, AST 90, alkaline phos 12 5 06/04 T bili 0.8, AST 82, ALT 41, alkaline phos 221 06/04 ammonia 56 Secondary to chronic alcoholism (10) DVT prophylaxis Current Visit: No Status: Acute Plan to address problem: Lovenox subcu SCDs to bilateral lower extremities while in bed Hospitalist Physical - Constitutional Vitals: Temp Pulse Resp BP Pulse Ox 99.0 F 73 18 142/77 98 06/05/20 16:26 06/05/20 16:26 06/05/20 16:26 06/05/20 16:26 06/05/20 16:26 General appearance: Present: no acute distress - EENT Eyes: Present: PERRL, EOM intact ENT: hearing intact, poor dentition - Neck Neck: Present: normal ROM - Respiratory Respiratory effort: normal Respiratory: bilateral: diminished - Cardiovascular Rhythm: regular Heart Sounds: Present: S1 & S2. Absent: systolic murmur, diastolic murmur - Extremities Extremities: no ischemia, pulses intact, pulses symmetrical, No edema, normal temperature, normal color, Full ROM Peripheral Pulses: within normal limits - Abdominal General gastrointestinal: soft, non-tender, non-distended, normal bowel sounds - Integumentary Integumentary: Present: warm, dry - Psychiatric Psychiatric: cooperative - Neurologic Neurologic: CNII-XII intact, no focal deficits, moves all extremities - Allied Health Allied health notes reviewed: nursing HEART Score - HEART Score Troponin: Troponin T < 0.010 ng/mL (0.00-0.029) 06/04/20 04:09 Results - Labs CBC & Chem 7: 06/05/20 05:58 06/05/20 14:47 Labs: Laboratory Last Values WBC 8.3 K/mm3 (4.5-11.0) 06/05/20 05:58 RBC 2.51 M/mm3 (3.65-5.03) L 06/05/20 05:58 Hgb 7.9 gm/dl (11.8-15.2) L 06/05/20 05:58 Hct 23.4 % (35.5-45.6) L D 06/05/20 05:58 MCV 93 fl (84-94) 06/05/20 05:58 MCH 31 pg (28-32) 06/05/20 05:58 MCHC 34 % (32-34) 06/05/20 05:58 RDW 17.7 % (13.2-15.2) H 06/05/20 05:58 Plt Count 179 K/mm3 (140-440) 06/05/20 05:58 Lymph % (Auto) 22.1 % (13.4-35.0) 06/05/20 05:58 [place] % (Auto) 4.0 % (0.0-7.3) 06/05/20 05:58 Eos % (Auto) 0.8 % (0.0-4.3) 06/05/20 05:58 Baso % (Auto) 0.6 % (0.0-1.8) 06/05/20 05:58 Lymph # (Auto) 1.8 K/mm3 (1.2-5.4) 06/05/20 05:58 [place] # (Auto) 0.3 K/mm3 (0.0-0.8) 06/05/20 05:58 Eos # (Auto) 0.1 K/mm3 (0.0-0.4) 06/05/20 05:58 Baso # (Auto) 0.1 K/mm3 (0.0-0.1) 06/05/20 05:58 Seg Neutrophils % 72.5 % (40.0-70.0) H 06/05/20 05:58 Seg Neutrophils # 6.0 K/mm3 (1.8-7.7) 06/05/20 05:58 PT 13.2 Sec. (12.2-14.9) 06/04/20 04:09 INR 1.01 (0.87-1.13) 06/04/20 04:09 Sodium 134 mmol/L (137-145) L 06/05/20 14:47 Potassium 3.7 mmol/L (3.6-5.0) D 06/05/20 14:47 Chloride 99.5 mmol/L (98-107) 06/05/20 14:47 Carbon Dioxide 28 mmol/L (22-30) 06/05/20 14:47 Anion Gap 10 mmol/L 06/05/20 14:47 BUN 4 mg/dL (9-20) L 06/05/20 14:47 Creatinine 0.5 mg/dL (0.8-1.3) L 06/05/20 14:47 Estimated GFR > 60 ml/min 06/05/20 14:47 BUN/Creatinine Ratio 8 % 06/05/20 14:47 Glucose 97 mg/dL (75-100) 06/05/20 14:47 Calcium 9.0 mg/dL (8.4-10.2) 06/05/20 14:47 Phosphorus 3.90 mg/dL (2.5-4.5) 06/04/20 11:00 Magnesium 1.50 mg/dL (1.7-2.3) L 06/05/20 05:58 Total Bilirubin 1.40 mg/dL (0.1-1.2) H 06/04/20 11:00 Direct Bilirubin 0.7 mg/dL (0-0.2) H 06/04/20 11:00 Indirect Bilirubin 0.7 mg/dL 06/04/20 11:00 AST 90 units/L (5-40) H 06/04/20 11:00 ALT 36 units/L (7-56) 06/04/20 11:00 Alkaline Phosphatase 205 units/L (35-129) H 06/04/20 11:00 Ammonia 56.0 umol/L (25-60) 06/04/20 11:00 Troponin T < 0.010 ng/mL (0.00-0.029) 06/04/20 04:09 Total Protein 6.6 g/dL (6.3-8.2) 06/04/20 11:00 Albumin 3.3 g/dL (3.9-5) L 06/04/20 11:00 Albumin/Globulin Ratio 1.0 % 06/04/20 11:00 Amylase 100 units/L (27-131) 06/04/20 11:00 Lipase 56 units/L (13-60) 06/04/20 04:09 TSH 0.930 mlU/mL (0.270-4.200) 06/04/20 04:09 Urine Color Yellow (Yellow) 06/04/20 Unknown Urine Turbidity Clear (Clear) 06/04/20 Unknown Urine pH 7.0 (5.0-7.0) 06/04/20 Unknown Ur Specific [place] 1.010 (1.003-1.030) 06/04/20 Unknown Urine Protein 100 mg/dl mg/dL (Negative) 06/04/20 Unknown Urine Glucose (UA) Neg mg/dL (Negative) 06/04/20 Unknown Urine Ketones Neg mg/dL (Negative) 06/04/20 Unknown Urine Blood Neg (Negative) 06/04/20 Unknown Urine Nitrite Neg (Negative) 06/04/20 Unknown Urine Bilirubin Neg (Negative) 06/04/20 Unknown Urine Urobilinogen 2.0 mg/dL (<2.0) 06/04/20 Unknown Ur Leukocyte Esterase Neg (Negative) 06/04/20 Unknown Urine WBC (Auto) 1.0 /HPF (0.0-6.0) 06/04/20 Unknown Urine RBC (Auto) < 1.0 /HPF (0.0-6.0) 06/04/20 Unknown Urine Opiates Screen Negative 06/04/20 Unknown Urine Methadone Screen Negative 06/04/20 Unknown Ur Barbiturates Screen Negative 06/04/20 Unknown Ur Phencyclidine Scrn Negative 06/04/20 Unknown Ur Amphetamines Screen Negative 06/04/20 Unknown U Benzodiazepines Scrn Negative 06/04/20 Unknown Urine Cocaine Screen Negative 06/04/20 Unknown U Marijuana (THC) Screen Negative 06/04/20 Unknown Drugs of Abuse Note Disclamer 06/04/20 Unknown Plasma/Serum Alcohol 0.19 % (0-0.07) H 06/04/20 04:09 Microbiology: Microbiology 06/05/20 09:38 Peripheral/Venous Blood Culture - Preliminary Culture in Progress 06/05/20 09:43 Peripheral/Venous Blood Culture - Preliminary Culture in Progress Heard/IV: Voiding Method Toilet IV Catheter Type [Left INT / Saline Lock Antecubital] Active Medications - Current Medications Current Medications: Generic Name Dose Route Start Last Admin Trade Name Freq PRN Reason Stop Dose Admin Acetaminophen 650 mg 06/04/20 11:00 Acetaminophen 325 Mg Tab PO Q4H PRN Pain MILD(1-3)/Fever >100.5/FREITAS Amlodipine Besylate 5 mg 06/05/20 10:00 06/05/20 09:00 Amlodipine 5 Mg Tab PO 5 mg QDAY TWIN Administration Folic Acid 1 mg 06/05/20 10:00 06/05/20 09:00 Folic Acid 1 Mg Tab PO 1 mg DAILY TWIN Administration Gabapentin 100 mg 06/04/20 15:00 06/05/20 13:39 Gabapentin 100 Mg Cap PO 100 mg Q8HR TWIN Administration Hydralazine HCl 10 mg 06/04/20 11:00 Hydralazine 20 Mg/1 Ml Inj IV Q4HR PRN Hypertension Lorazepam 2 mg 06/04/20 10:08 06/05/20 10:46 Lorazepam 2 Mg/Ml Vial IV 2 mg Q1H PRN Administration CIWA-Ar 8-15 Lorazepam 4 mg 06/04/20 10:08 06/04/20 23:25 Lorazepam 2 Mg/Ml Vial IV 4 mg Q1H PRN Administration CIWA-Ar 16-25 Multivitamins 1 each 06/05/20 10:00 06/05/20 09:01 Multivitamins ,Therapeutic Tab PO 1 each DAILY TWIN Administration Ondansetron HCl 4 mg 06/04/20 11:00 Ondansetron 4 Mg/2 Ml Inj IV Q8H PRN Nausea And Vomiting Oxycodone/Acetaminophen 1 tab 06/04/20 11:00 06/05/20 10:32 Oxycodone /Acetaminophen 5-325mg Tab PO 1 tab Q6H PRN Administration Pain, Moderate (4-6) Pantoprazole Sodium 40 mg 06/04/20 16:30 06/05/20 09:00 Pantoprazole 40 Mg Tab PO 40 mg BIDAC TWIN Administration Phenobarbital 130 mg 06/04/20 10:08 Phenobarbital 130 Mg/Ml Vial IV Q15M PRN DT's refractory to BZD's Sodium Chloride 10 ml 06/04/20 22:00 06/05/20 09:01 Sodium Chloride 0.9% 10 Ml Flush Syringe IV 10 ml BID TWIN Administration Sodium Chloride 10 ml 06/04/20 10:37 Sodium Chloride 0.9% 10 Ml Flush Syringe IV PRN PRN LINE FLUSH Thiamine HCl 100 mg 06/05/20 10:00 06/05/20 09:00 Thiamine 100 Mg Tab PO 100 mg QDAY TWIN Administration Nutrition/Malnutrition Assess - Dietary Evaluation Nutrition/Malnutrition Findings: Nutrition Notes Start: 06/05/20 12:19 Freq: Status: Active Protocol: Document 06/05/20 12:19 STERLING (Rec: 06/05/20 12:32 STERLING [email or web address]) Nutrition Notes 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 No Tristen score or wounds noted. 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 Pt reports UBW of 63.6kg however, per chart, pt has gained wt since previous visit (58kg). Pt is open to Ensure Clear and doesn 't like Ensure Enlives. Burn Absent Trauma Absent Current % PO Negligible Minimum of two criteria No Energy Intake (severe) < or equal to 50% Estimated Energy Requirement > or equal to 5 days #1 Nutrition Diagnosis Inadequate oral intake Etiology decreased appetite As Evidenced by Signs and Symptoms pt eating <25% of meals Is patient on ventilator? No Is Patient Ambulatory and/or Out of Bed Yes REE-([facility]-ambulatory/OOB) [ [id number] [id number]] Calculation Used for Recommendations [facility] Additional Notes Pro: 49-61g (0.8-1g/kg) Fluid: 1 ml/kcal Nutrition Intervention Change Diet Order: Continue Add Supplement/Snack (indicate name/kcal Ensure Clear BID /protein ) Provides kCal: 480 Provides Protein (gm) 16 Goal #1 Meet at least 75% of protein and energy needs via PO and ONS intakes Goal #2 Weight gain/maintenance Anticipated Discharge Needs: Cardiac Follow-Up By: 06/07/20 Additional Comments FU for intakes, ONS tolerance
[2020-06-06] MEDS: LORazepam 2 MG/ML VIAL IV PRN ×2 (00:33→14:37)
[2020-06-06] MEDS: oxyCODONE /ACETAMINOPHEN 5-325MG TAB PO PRN ×3 (01:34→14:35)
[2020-06-06] MEDS: GABAPENTIN 100 MG CAP PO SCH ×2 (05:43→14:36)
[2020-06-06 06:37] LABS: Blood Urea Nitrogen 3 mg/dL (9-20); Calcium 9.3 mg/dL (8.4-10.2); Hemolysis Index 0
[2020-06-06 06:42] LABS: BUN/Creatinine Ratio 8
[2020-06-06] MEDS ORDERED: amLODIPine 5 MG TAB PO SCH (07:41)
[2020-06-06] MEDS ORDERED: POTASSIUM CHLORIDE ER 20 MEQ TAB PO NR (08:00)
[2020-06-06] MEDS: PANTOPRAZOLE 40 MG TAB PO SCH (08:58)
[2020-06-06] MEDS: FOLIC ACID 1 MG TAB PO SCH (09:00)
[2020-06-06] MEDS: THIAMINE 100 MG TAB PO SCH (09:00)
[2020-06-06] MEDS: MULTIVITAMINS ,THERAPEUTIC TAB PO SCH (09:00)
[2020-06-06] MEDS: MAGNESIUM OXIDE 400 MG TAB PO SCH ×2 (09:01→14:35)
[2020-06-06] MEDS ORDERED: amLODIPine 10 MG TAB PO SCH (10:00)
--- NOTE | 2020-06-06 10:53 | Progress Note ---
Assessment and Plan Assessment and plan: (1) Person under investigation for COVID-19 Current Visit: Yes Status: Acute Plan to address problem: 06/05 overnight patient spiked temperatures 06/04 CXR shows no acute process 06/05 COVID-19 PCR pending Droplet//precautions OOB 3 times daily Patient is on room air therefore steroid therapy start indicated Anticoagulation per protocol Pulmonary hygiene Monitor oxygen as needed Prone to sleep as needed Consider ID/pulmonology consult (2) Palpitations Current Visit: Yes Status: Acute Plan to address problem: 06/04 TSH 0.9 Patient has severe hypomagnesemia with slight hypokalemia 06/[address] Supportive care 06/04 troponin less than 0.010 Likely due to alcohol withdrawal (3) Hypomagnesemia Current Visit: Yes Status: Acute Plan to address problem: Presented with a magnesium of 0.8 and received 4 g magnesium IV Trend magnesium Replete as needed 06/05 magnesium 1.5 , repleted Upon review of prior adamant hypomagnesemia seems to be chronic likely due to alcoholism (4) Hypokalemia Current Visit: No Status: Resolved Plan to address problem: Presented with potassium 3.5, 06/05 3.7 Repleted Trend BMP Replete as necessary Patient had hypokalemia on previous admit and was discharged with potassium supplementation Likely due to alcoholism (5) Alcohol abuse Current Visit: Yes Status: Chronic Plan to address problem: Patient admits to drinking 1 pint of liquor per day for 25 years [facility] protocol 06/04 plasma alcohol 0.19 Seizure and aspiration precautions Supportive care Case management for alcohol cessation resources Alcohol cessation education completed (6) Paresthesia of both feet Current Visit: Yes Status: Acute Plan to address problem: Patient complains of paresthesias to bilateral feet for about 2 weeks 06/04 hemoglobin A1c pending Patient started on gabapentin Likely due to his alcoholism (7) Hyponatremia Current Visit: Yes Status: Acute Plan to address problem: Slight, sodium 134-135 Trend BMP Monitor neuro status (8) Hypertension Current Visit: Yes Status: Chronic Plan to address problem: Presented to the ED with BP 140-150/70-80s S/p 2.5 amlodipine in the ED Upon reviewing prior medical records patient has been restarted on 5 mg Norvasc daily Blood pressure monitoring per protocol IV hydralazine as needed for SBP greater than 160 (9) Transaminitis Current Visit: Yes Status: Acute Plan to address problem: 06/05 T bili 1.4, D bili 0.7, AST 90, alkaline phos 12 5 06/04 T bili 0.8, AST 82, ALT 41, alkaline phos 221 06/04 ammonia 56 Secondary to chronic alcoholism (10) DVT prophylaxis Current Visit: No Status: Acute Plan to address problem: Lovenox subcu SCDs to bilateral lower extremities while in bed History Interval history: I have seen and examined the patient at the bedside Patient's chart and medications reviewed Patient has mild tremulousness ambulatory without problem Asked for more pain medications Awaiting gore PCR test Vital signs noted Hospitalist Physical - Constitutional Vitals: Temp Pulse Resp BP Pulse Ox 98.5 F 81 18 139/89 96 06/06/20 07:40 06/06/20 07:40 06/06/20 07:40 06/06/20 07:40 06/06/20 07:40 General appearance: Present: no acute distress, cachectic, disheveled - EENT Eyes: Present: PERRL, EOM intact - Neck Neck: Present: supple, normal ROM - Respiratory Respiratory effort: normal Respiratory: right: wheezing, bilateral: diminished, negative: rales, rhonchi - Extremities Extremities: no ischemia, pulses intact - Abdominal General gastrointestinal: soft, non-tender - Integumentary Integumentary: Present: clear, warm - Psychiatric Psychiatric: appropriate mood/affect, cooperative - Neurologic Neurologic: moves all extremities HEART Score - HEART Score Troponin: Troponin T < 0.010 ng/mL (0.00-0.029) 06/04/20 04:09 Results - Labs CBC & Chem 7: 06/05/20 05:58 06/06/20 05:53 Labs: Laboratory Last Values WBC 8.3 K/mm3 (4.5-11.0) 06/05/20 05:58 RBC 2.51 M/mm3 (3.65-5.03) L 06/05/20 05:58 Hgb 7.9 gm/dl (11.8-15.2) L 06/05/20 05:58 Hct 23.4 % (35.5-45.6) L D 06/05/20 05:58 MCV 93 fl (84-94) 06/05/20 05:58 MCH 31 pg (28-32) 06/05/20 05:58 MCHC 34 % (32-34) 06/05/20 05:58 RDW 17.7 % (13.2-15.2) H 06/05/20 05:58 Plt Count 179 K/mm3 (140-440) 06/05/20 05:58 Lymph % (Auto) 22.1 % (13.4-35.0) 06/05/20 05:58 Phillips % (Auto) 4.0 % (0.0-7.3) 06/05/20 05:58 Eos % (Auto) 0.8 % (0.0-4.3) 06/05/20 05:58 Baso % (Auto) 0.6 % (0.0-1.8) 06/05/20 05:58 Lymph # (Auto) 1.8 K/mm3 (1.2-5.4) 06/05/20 05:58 Phillips # (Auto) 0.3 K/mm3 (0.0-0.8) 06/05/20 05:58 Eos # (Auto) 0.1 K/mm3 (0.0-0.4) 06/05/20 05:58 Baso # (Auto) 0.1 K/mm3 (0.0-0.1) 06/05/20 05:58 Seg Neutrophils % 72.5 % (40.0-70.0) H 06/05/20 05:58 Seg Neutrophils # 6.0 K/mm3 (1.8-7.7) 06/05/20 05:58 PT 13.2 Sec. (12.2-14.9) 06/04/20 04:09 INR 1.01 (0.87-1.13) 06/04/20 04:09 Sodium 134 mmol/L (137-145) L 06/06/20 05:53 Potassium 3.3 mmol/L (3.6-5.0) L 06/06/20 05:53 Chloride 99.2 mmol/L (98-107) 06/06/20 05:53 Carbon Dioxide 24 mmol/L (22-30) 06/06/20 05:53 Anion Gap 14 mmol/L 06/06/20 05:53 BUN 3 mg/dL (9-20) L 06/06/20 05:53 Creatinine 0.4 mg/dL (0.8-1.3) L 06/06/20 05:53 Estimated GFR > 60 ml/min 06/06/20 05:53 BUN/Creatinine Ratio 8 % 06/06/20 05:53 Glucose 110 mg/dL (75-100) H 06/06/20 05:53 Calcium 9.3 mg/dL (8.4-10.2) 06/06/20 05:53 Phosphorus 3.90 mg/dL (2.5-4.5) 06/04/20 11:00 Magnesium 1.50 mg/dL (1.7-2.3) L 06/06/20 05:53 Total Bilirubin 1.40 mg/dL (0.1-1.2) H 06/04/20 11:00 Direct Bilirubin 0.7 mg/dL (0-0.2) H 06/04/20 11:00 Indirect Bilirubin 0.7 mg/dL 06/04/20 11:00 AST 90 units/L (5-40) H 06/04/20 11:00 ALT 36 units/L (7-56) 06/04/20 11:00 Alkaline Phosphatase 205 units/L (35-129) H 06/04/20 11:00 Ammonia 56.0 umol/L (25-60) 06/04/20 11:00 Troponin T < 0.010 ng/mL (0.00-0.029) 06/04/20 04:09 Total Protein 6.6 g/dL (6.3-8.2) 06/04/20 11:00 Albumin 3.3 g/dL (3.9-5) L 06/04/20 11:00 Albumin/Globulin Ratio 1.0 % 06/04/20 11:00 Amylase 100 units/L (27-131) 06/04/20 11:00 Lipase 56 units/L (13-60) 06/04/20 04:09 TSH 0.930 mlU/mL (0.270-4.200) 06/04/20 04:09 Urine Color Yellow (Yellow) 06/04/20 Unknown Urine Turbidity Clear (Clear) 06/04/20 Unknown Urine pH 7.0 (5.0-7.0) 06/04/20 Unknown Ur Specific [place] 1.010 (1.003-1.030) 06/04/20 Unknown Urine Protein 100 mg/dl mg/dL (Negative) 06/04/20 Unknown Urine Glucose (UA) Neg mg/dL (Negative) 06/04/20 Unknown Urine Ketones Neg mg/dL (Negative) 06/04/20 Unknown Urine Blood Neg (Negative) 06/04/20 Unknown Urine Nitrite Neg (Negative) 06/04/20 Unknown Urine Bilirubin Neg (Negative) 06/04/20 Unknown Urine Urobilinogen 2.0 mg/dL (<2.0) 06/04/20 Unknown Ur Leukocyte Esterase Neg (Negative) 06/04/20 Unknown Urine WBC (Auto) 1.0 /HPF (0.0-6.0) 06/04/20 Unknown Urine RBC (Auto) < 1.0 /HPF (0.0-6.0) 06/04/20 Unknown Urine Opiates Screen Negative 06/04/20 Unknown Urine Methadone Screen Negative 06/04/20 Unknown Ur Barbiturates Screen Negative 06/04/20 Unknown Ur Phencyclidine Scrn Negative 06/04/20 Unknown Ur Amphetamines Screen Negative 06/04/20 Unknown U Benzodiazepines Scrn Negative 06/04/20 Unknown Urine Cocaine Screen Negative 06/04/20 Unknown U Marijuana (THC) Screen Negative 06/04/20 Unknown Drugs of Abuse Note Disclamer 06/04/20 Unknown Plasma/Serum Alcohol 0.19 % (0-0.07) H 06/04/20 04:09 Microbiology: Microbiology 06/05/20 09:38 Peripheral/Venous Blood Culture - Preliminary Culture in Progress 06/05/20 09:43 Peripheral/Venous Blood Culture - Preliminary Culture in Progress Heard/IV: Voiding Method Toilet IV Catheter Type [Left INT / Saline Lock Antecubital] Active Medications - Current Medications Current Medications: Generic Name Dose Route Start Last Admin Trade Name Freq PRN Reason Stop Dose Admin Acetaminophen 650 mg 06/04/20 11:00 Acetaminophen 325 Mg Tab PO Q4H PRN Pain MILD(1-3)/Fever >100.5/FREITAS Amlodipine Besylate 10 mg 06/06/20 10:00 06/06/20 09:00 Amlodipine 10 Mg Tab PO 10 mg DAILY TWIN Administration Folic Acid 1 mg 06/05/20 10:00 06/06/20 09:00 Folic Acid 1 Mg Tab PO 1 mg DAILY TWIN Administration Gabapentin 100 mg 06/04/20 15:00 06/06/20 05:43 Gabapentin 100 Mg Cap PO 100 mg Q8HR TWIN Administration Hydralazine HCl 10 mg 06/04/20 11:00 Hydralazine 20 Mg/1 Ml Inj IV Q4HR PRN Hypertension Lorazepam 2 mg 06/04/20 10:08 06/06/20 00:33 Lorazepam 2 Mg/Ml Vial IV 2 mg Q1H PRN Administration CIWA-Ar 8-15 Lorazepam 4 mg 06/04/20 10:08 06/04/20 23:25 Lorazepam 2 Mg/Ml Vial IV 4 mg Q1H PRN Administration CIWA-Ar 16-25 Magnesium Oxide 400 mg 06/06/20 08:00 06/06/20 09:01 Magnesium Oxide 400 Mg Tab PO 06/06/20 14:01 400 mg Q8HR TWIN Administration Multivitamins 1 each 06/05/20 10:00 06/06/20 09:00 Multivitamins ,Therapeutic Tab PO 1 each DAILY TWIN Administration Ondansetron HCl 4 mg 06/04/20 11:00 Ondansetron 4 Mg/2 Ml Inj IV Q8H PRN Nausea And Vomiting Oxycodone/Acetaminophen 1 tab 06/04/20 11:00 06/06/20 08:58 Oxycodone /Acetaminophen 5-325mg Tab PO 1 tab Q6H PRN Administration Pain, Moderate (4-6) Pantoprazole Sodium 40 mg 06/04/20 16:30 06/06/20 08:58 Pantoprazole 40 Mg Tab PO 40 mg BIDAC TWIN Administration Phenobarbital 130 mg 06/04/20 10:08 Phenobarbital 130 Mg/Ml Vial IV Q15M PRN DT's refractory to BZD's Potassium Chloride 40 meq 06/06/20 08:00 06/06/20 08:59 Potassium Chloride Er 20 Meq Tab PO 06/06/20 12:00 40 meq ONCE@0800 NR Administration Sodium Chloride 10 ml 06/04/20 22:00 06/05/20 21:33 Sodium Chloride 0.9% 10 Ml Flush Syringe IV 10 ml BID TWIN Administration Sodium Chloride 10 ml 06/04/20 10:37 Sodium Chloride 0.9% 10 Ml Flush Syringe IV PRN PRN LINE FLUSH Thiamine HCl 100 mg 06/05/20 10:00 06/06/20 09:00 Thiamine 100 Mg Tab PO 100 mg QDAY TWIN Administration Nutrition/Malnutrition Assess - Dietary Evaluation Nutrition/Malnutrition Findings: Nutrition Notes Start: 06/05/20 12:19 Freq: Status: Active Protocol: Document 06/05/20 12:19 (Rec: 06/05/20 12:32 [id number]) Nutrition Notes Need for Assessment generated from: local superintendent Initial or Follow up Assessment Current Diagnosis Hypertension Other Pertinent Diagnosis EtOH withdrawl, pancreatitis Current Diet Regular Labs/Tests Na 135 K 3 BUN 4 Cr 0.4 Mg 1.5 Pertinent Medications MVI Thiamine K-Dur 40 mEq Mg 4g Folic acid Height 5 ft 8 in Weight 60.7 kg Usual Body Weight 63.63 kg [place] Body Weight (kg) 70.00 BMI 20.3 Weight Status Appropriate Subjective/Other Information RN screen for skin risk. No Tristen score or wounds noted. Pt reports not eating [employer] and now eating <25% of meals due to feeling sick. Pt reports UBW of 63.6kg however, per chart, pt has gained wt since previous visit (58kg). Pt is open to Ensure Clear and doesn 't like Ensure Enlives. Burn Absent Trauma Absent Current % PO Negligible Minimum of two criteria No Energy Intake (severe) < or equal to 50% Estimated Energy Requirement > or equal to 5 days #1 Nutrition Diagnosis Inadequate oral intake Etiology decreased appetite As Evidenced by Signs and Symptoms pt eating <25% of meals Is patient on ventilator? No Is Patient Ambulatory and/or Out of Bed Yes REE-([facility]-ambulatory/OOB) [ 1932.450 [id number]] Calculation Used for Recommendations [facility] Additional Notes Pro: 49-61g (0.8-1g/kg) Fluid: 1 ml/kcal Nutrition Intervention Change Diet Order: Continue Add Supplement/Snack (indicate name/kcal Ensure Clear BID /protein ) Provides kCal: 480 Provides Protein (gm) 16 Goal #1 Meet at least 75% of protein and energy needs via PO and ONS intakes Goal #2 Weight gain/maintenance Anticipated Discharge Needs: Cardiac Follow-Up By: 06/07/20 Additional Comments FU for intakes, ONS tolerance
[2020-06-06] MEDS ORDERED: KETOROLAC 30 MG/1 ML INJ IV PRN (14:30)
[2020-06-06 16:38] VITALS: BP 140/92
--- NOTE | 2020-06-06 18:56 | Discharge Summary ---
Providers - Providers Date of Admission: 06/04/20 10:37 Date of discharge: 06/06/20 Attending physician: EFRA SIEGEL 06/04/20 Consult to Case Management [CONS] Routine Services Needed at Discharge: Business Unit Director Notified:: cm notified Primary care physician: [facility] STRE[facility] Hospitalization Condition: Stable Exam - Constitutional Vitals: Temp Pulse Resp BP Pulse Ox 97.5 F L 84 18 140/92 100 06/06/20 16:21 06/06/20 16:21 06/06/20 16:21 06/06/20 16:21 06/06/20 16:21 Plan Activity: advance as tolerated, fall precautions Diet: regular Additional Instructions: Strongly advised to quit alcohol intake. Smoking cessation. Highly recommend voluntary alcohol rehabilitation. If you have worsening symptoms contact MD or go to emergency room. Fall precautions. Do not drive under the influence of alcohol. Do not operate heavy machinery under the influence of alcohol Follow up with: [facility] [Provider Group] - 2-3 Days PRIMARY CAREMD [Primary Care Provider] - 2-3 Days DIO CONNORS MD [Staff Physician] - 2-3 Days Prescriptions: amLODIPine 5 mg PO DAILY #30 tab
== END 2020-06-06 19:30 | disposition home or self-care (01) ==
LOC: ED 01:15 → 3A 10:37 → 3B-SURG 06-05 01:53
PROVIDERS: ADMIT Internal Medicine; ATTEND Internal Medicine
DX: F10.239 Alcohol dependence with withdrawal, unspecified (principal); Z20.828 Contact with and (suspected) exposure to other viral communicable diseases; E87.6 Hypokalemia; E83.42 Hypomagnesemia; R20.2 Paresthesia of skin; R00.2 Palpitations; I10 Essential (primary) hypertension; R74.01 Elevation of levels of liver transaminase levels; E87.1 Hypo-osmolality and hyponatremia; Z90.49 Acquired absence of other specified parts of digestive tract; Z79.899 Other long term (current) drug therapy
CPT/HCPCS: 36415; 71045; 80048; 80053; 80307; 81001; 82140; 82150; 83690; 83735; 84100; 84443; 84484; 85025; 85610; 87040; 93005; 96361; 96365; 96366; 96367; 96375; 96376; 99285; G0378; J2060; J3411; J3475; J7030; U0003; 80076; 80320; G0480